=== PATIENT | male | born 1935 | race Caucasian/White ===

== ENCOUNTER → 2016-10-02 | Outpatient (CLI) | payer OTHER, BC ==
[~2016-10-02] MED LIST: AMLO5TAB2 PO; ASPEC81 PO; ATOR10TA88 PO; FURO-85 PO; LISI10TA PO; POTA10TA32 PO; ZNTT/150 PO; ZOLP5TAB6 PO
[2016-10-02 09:32] LABS: BASO % 0.5 %; BASO ABS # 0.03 K/uL (0-0.2); COMPLETE YES; EOS % 1.9 %; HEMATOCRIT 39.1 % (42-52); IG% 0.2 %; LYMPH % 37.3 %; LYMPH ABS # 2.36 K/uL (1.2-3.4); MEAN CORPUSCULAR HEMOGLOBIN 32.8 pg (25-34); MEAN CORPUSCULAR HGB CONC 33.8 g/dl (32-36); MEAN PLATELET VOLUME 9.1 fL (7.4-10.4); MONO % 9.5 %; NEUT % 50.6 %; PLATELET COUNT 218 K/uL (130-400); RED BLOOD COUNT 4.03 M/uL (4.7-6.1); WHITE BLOOD COUNT 6.32 K/uL (4.8-10.8)
[2016-10-02 09:54] LABS: ALT/SGPT 15 U/L (12-78); AST/SGOT 14 U/L (15-37); BLOOD UREA NITROGEN 18 mg/dl (7-18); BUN/CREATININE RATIO 20.3 (10-20); CALCIUM 8.8 mg/dl (8.5-10.1); CARBON DIOXIDE 26 mmol/L (21-32); CHLORIDE 108 mmol/L (98-107); CREATININE 0.88 mg/dl (0.60-1.40); GLUCOSE 88 mg/dl (70-99); POTASSIUM 4.1 mmol/L (3.5-5.1); SODIUM 143 mmol/L (136-145)
[2016-10-02 09:56] LABS: ALB/GLOB RATIO 1.3 (0.9-2); ALKALINE PHOSPHATASE 60 U/L (45-117); CHOLESTEROL 151 mg/dl (0-200); CHOLESTEROL/HDL RATIO 2.4; HDL CHOLESTEROL 62 mg/dl; LDL CHOLESTEROL CALCULATED 67 mg/dl; TRIGLYCERIDES 111 mg/dl (0-150); VERY LOW DENSITY LIPOPROT CALC 22 mg/dl
== END | disposition home or self-care (01) ==
LOC: C.LAB1850 07:55
PROVIDERS: ATTEND Nurse Practitioner Family
DX: E78.00 Pure hypercholesterolemia, unspecified (principal); I10 Essential (primary) hypertension; K21.9 Gastro-esophageal reflux disease without esophagitis

== ENCOUNTER → 2017-03-19 | Outpatient (CLI) | payer OTHER, BC ==
[2017-03-19 09:35] LABS: BASO % 0.5 %; BASO ABS # 0.04 K/uL (0-0.2); COMPLETE YES; EOS % 1.9 %; HEMATOCRIT 42.7 % (42-52); IG% 0.1 %; LYMPH % 36.4 %; LYMPH ABS # 2.66 K/uL (1.2-3.4); MEAN CELL VOLUME 98.4 fL (80-100); MEAN CORPUSCULAR HEMOGLOBIN 31.6 pg (25-34); MEAN CORPUSCULAR HGB CONC 32.1 g/dl (32-36); MEAN PLATELET VOLUME 9.2 fL (7.4-10.4); MONO % 8.4 %; NEUT % 52.7 %; PLATELET COUNT 235 K/uL (130-400); RED BLOOD COUNT 4.34 M/uL (4.7-6.1)
[2017-03-19 09:47] LABS: PROTHROMBIN TIME (PATIENT) 10.2 SECONDS (9.0-12.0)
[2017-03-19 09:52] LABS: ALT/SGPT 22 U/L (12-78); AST/SGOT 19 U/L (15-37); BLOOD UREA NITROGEN 27 mg/dl (7-18); BUN/CREATININE RATIO 22.6 (10-20); CALCIUM 9.1 mg/dl (8.5-10.1); CARBON DIOXIDE 28 mmol/L (21-32); CHLORIDE 108 mmol/L (98-107); GLUCOSE 99 mg/dl (70-99); POTASSIUM 4.1 mmol/L (3.5-5.1); SODIUM 140 mmol/L (136-145)
[2017-03-19 09:54] LABS: ALB/GLOB RATIO 1.3 (0.9-2); ALKALINE PHOSPHATASE 74 U/L (45-117); CHOLESTEROL 149 mg/dl (0-200); CHOLESTEROL/HDL RATIO 2.6; HDL CHOLESTEROL 57 mg/dl; LDL CHOLESTEROL CALCULATED 74 mg/dl; TRIGLYCERIDES 88 mg/dl (0-150); VERY LOW DENSITY LIPOPROT CALC 18 mg/dl
[2017-03-19 09:59] LABS: ESTIMATED AVERAGE GLUCOSE 120 mg/dl; HA1C FLAG Normal (Normal)
== END | disposition home or self-care (01) ==
LOC: C.LAB1850 07:58
PROVIDERS: ATTEND Nurse Practitioner Family
DX: R73.01 Impaired fasting glucose (principal); R23.8 Other skin changes

== ENCOUNTER → 2017-04-23 | Day surgery (SDC) | payer OTHER, BC ==
[2017-04-12 13:36] VITALS: Ht 172.7 cm; Wt 75.0 kg
[~2017-04-23] VITALS: Ht 172.7 cm; Wt 75.0 kg
[~2017-04-23] MED LIST changes: -ASPEC81 PO; +LIDOCAINE HCL 2% 2 ML VIAL (20MG/ML) ONE; +PROPOFOL IV EMULSION 10 MG/ML 20 ML VIAL IV ONE; +SODIUM CHLORIDE 0.9% 500ML 500 ML IV ONE
--- NOTE | 2017-04-23 12:24 | Endo History and Physical ---
History & Physical Date of Service: Apr 23, 2017. Chief Complaint: Gunn's esophagus Referring Physician: REDDY Spring III History of Present Illness 82 yo CM who presents for EGD secondary to Gunn's esophagus. Past Medical History Male Genitourinary Prob., Anxiety, Reflux, High Cholesterol, Hypertension Past Surgical History Hx Cardiac Surgery: No Hx Internal Defibrillator: No Hx Pacemaker: No Hx Abdominal Surgery: No Hx of Implantable Prosthesis: No Hx Post-Op Nausea and Vomiting: No Hx Cancer Surgery: No Hx Thoracic Surgery: No Hx Orthopedic: Yes (LT FOOT SURGERY) Hx Urinary Tract Surgery: Yes (TURP, CYSTOSCOPY) Family History None Social History Smoking Status: Former Smoker Hx Substance Use: No Hx Alcohol Use: Yes (OCCASIONAL) Allergies Coded Allergies: No Known Allergies (Verified , ., 04/23/17) Current Medications Reported Home Medications Medications Dose Route/Sig Max Daily Dose Days Date Category Zantac (Ranitidine HCl) 150 Mg Tab 150 Mg PO QPM PRN 10/20/14 Reported Potassium Chloride Er (Potassium Chloride Microencaps) 10 Meq Tab 10 Meq PO QAM 02/20/14 Reported Prinivil (Lisinopril) 10 Mg Tab 10 Mg PO BID 02/20/14 Reported Lasix (Furosemide) 20 Mg Tab 20 Mg PO QAM 02/20/14 Reported Lipitor (Atorvastatin Calcium) 10 Mg Tab 10 Mg PO QAM 02/20/14 Reported Norvasc (Amlodipine Besylate) 5 Mg Tab 5 Mg PO QAM 02/20/14 Reported Vital Signs Weight (Kilograms): 75 Height (Feet): 5 Height (Inches): 8 Date Time Temp Pulse Resp B/P (MAP) Pulse Ox O2 Delivery O2 Flow Rate FiO2 04/23/17 11:44 36.6 64 16 136/81 (99) 95 Room Air Physical Exam General Appearance: WD/WN, no apparent distress Respiratory/Chest: Auscultation: breath sounds normal Cardiovascular: Heart Auscultation: RRR Abdomen: Bowel Sounds: normal Inspection & Palpation: soft, non-distended, no tenderness, guarding & rebound Assessment and Plan Assessment: 82 yo CM who presents for EGD secondary to Gunn's esophagus. Plan: Proceed with EGD
--- NOTE | 2017-04-23 12:55 | Discharge Instructions ---
Endoscopy Patient Instructions Date / Procedure(s) Performed Apr 23, 2017. EGD Allergy Information Coded Allergies: No Known Allergies (Verified , ., 04/23/17) Discharge Date / Findings Apr 23, 2017. Gunn's Esophagus s/p biopsies Hiatal hernia Medication Instructions Stopped Medication(s): Patient was told to not take his lasix today. OK to resume all medications today as prescribed Reported Home Medications Medications Dose Route/Sig Max Daily Dose Days Date Category Zantac (Ranitidine HCl) 150 Mg Tab 150 Mg PO QPM PRN 10/20/14 Reported Potassium Chloride Er (Potassium Chloride Microencaps) 10 Meq Tab 10 Meq PO QAM 02/20/14 Reported Prinivil (Lisinopril) 10 Mg Tab 10 Mg PO BID 02/20/14 Reported Lasix (Furosemide) 20 Mg Tab 20 Mg PO QAM 02/20/14 Reported Lipitor (Atorvastatin Calcium) 10 Mg Tab 10 Mg PO QAM 02/20/14 Reported Norvasc (Amlodipine Besylate) 5 Mg Tab 5 Mg PO QAM 02/20/14 Reported Provider Instructions Activity Restrictions - No exercising or heavy lifting for 24 hours. - Do not drink alcohol the day of the procedure. - Do not drive a car or operate machinery until the day after the procedure. - Do not make any important decisions or sign important papers in 24 hours after the procedure. Following Day: - Return to full activity which may include returning to work/school. Diet Start your diet with liquids and light foods (jello, soup, juice, toast). Then eat your usual diet if not nauseated. Treatment For Common After Affects For mild abdominal pain, bloating, or excessive gas: - Rest - Eat lightly - Lie on right side Follow-Up Information Follow-up with REDDY Spring III as scheduled Anesthesia Information What You Should Know You have had a procedure that required some medicine to reduce anxiety and discomfort. This treatment is called moderate sedation. After receiving the treatment, you may be sleepy, but you will be able to breathe on your own. The effects of the treatment may last for several hours. Follow these instructions along with Activity/Diet recommendations noted above: * Do NOT do anything where dizziness or clumsiness would be dangerous. * Rest quietly at home today, then you can be up and about tomorrow. * Have a responsible person stay with you the rest of today. * You may have had an I.V. today. If so, you may take the dressing off later today. Recommendations Call your doctor if: * Trouble breathing * Continuous vomiting for more than 24 hours * Temperature above 101 degrees * Severe abdominal pain or bloating * Pain not relieved by pain medicine ordered * There is increased drainage or redness from any incision * A large amount of rectal bleeding greater than 2-3 tablespoons. (If you had a polyp/s removed or have hemorrhoids, a small amount of blood - from the rectum is to be expected.) * You have any unanswered questions or concerns. IN THE EVENT OF A SERIOUS EMERGENCY, GO TO THE NEAREST EMERGENCY ROOM Your discharge instructions were prepared by provider Hector White. Patient Instructions Signature Page Steve Winn Patient (or Guardian) Signature/Date: I have read and understand the instructions given to me by my caregivers. Caregiver/RN/Doctor Signature/Date: The above-named patient and/or guardian has received patient instructions on this date. + Original Patient Signature Page (only) stays with chart. Please make copy for patient.
--- NOTE | 2017-04-23 13:02 | GI REPORT ---
Procedure Date: 04/23/2017 12:22 PM Procedure: Upper GI endoscopy Indications: Follow-up of Gunn's esophagus Medicines: Monitored Anesthesia Care Complications: No immediate complications. Estimated Blood Loss: Estimated blood loss: none. Procedure: Pre-Anesthesia Assessment: - Prior to the procedure, a History and Physical was performed, and patient medications and allergies were reviewed. The patient's tolerance of previous anesthesia was also reviewed. The risks and benefits of the procedure and the sedation options and risks were discussed with the patient. All questions were answered, and informed consent was obtained. Prior Anticoagulants: The patient has taken no previous anticoagulant or antiplatelet agents. ASA Grade Assessment: II - A patient with mild systemic disease. After reviewing the risks and benefits, the patient was deemed in satisfactory condition to undergo the procedure. After obtaining informed consent, the endoscope was passed under direct vision. Throughout the procedure, the patient's blood pressure, pulse, and oxygen saturations were monitored continuously. The scope was introduced through the mouth, and advanced to the second part of duodenum. The upper GI endoscopy was accomplished without difficulty. The patient tolerated the procedure well. Findings: There were esophageal mucosal changes consistent with short-segment Gunn's esophagus present at the gastroesophageal junction. The maximum longitudinal extent of these mucosal changes was 2 cm in length. Mucosa was biopsied with a cold forceps for histology. One specimen bottle was sent to pathology. A small hiatus hernia was present. The examined duodenum was normal. Impression: - Esophageal mucosal changes consistent with short-segment Gunn's esophagus. Biopsied. - Small hiatus hernia. - Normal examined duodenum. Recommendation: - Resume previous diet. - Continue present medications. - Await pathology results. - Return to primary care physician as previously scheduled. Hector White, DO 04/23/2017 1:01:16 PM This report has been signed electronically. Note Initiated On: 04/23/2017 12:22 PM I attest to the content of the Intraoperative Record and orders documented therein, exceptions below
--- NOTE | 2017-04-23 13:21 | Anesthesiology Progress Note ---
Anesthesia Post Op Note Date & Time Apr 23, 2017 at 13:21 Vital Signs Pain Intensity: 0 Vital Signs Past 12 Hours Date Time Temp Pulse Resp B/P (MAP) Pulse Ox O2 Delivery O2 Flow Rate FiO2 04/23/17 13:11 54 16 112/65 (81) 95 Room Air 04/23/17 12:56 54 16 90/54 (66) 94 Room Air 04/23/17 11:44 36.6 64 16 136/81 (99) 95 Room Air Notes Mental Status: alert / awake / arousable, participated in evaluation Pt Amnestic to Procedure: Yes Nausea / Vomiting: adequately controlled Pain: adequately controlled Airway Patency, RR, SpO2: stable & adequate BP & HR: stable & adequate Hydration State: stable & adequate Anesthetic Complications: no major complications apparent
[2017-04-23 13:28] VITALS: BP 110/53; PULSE 51; O2SAT 98
== END | disposition home or self-care (01) ==
LOC: C.GI 11:17
PROVIDERS: ATTEND Internal Medicine
DX: K22.70 Barrett's esophagus without dysplasia (principal); K44.9 Diaphragmatic hernia without obstruction or gangrene; I10 Essential (primary) hypertension; E78.00 Pure hypercholesterolemia, unspecified

== ENCOUNTER 2017-04-29 16:05 | Emergency (ER) | payer OTHER, BC ==
[~2017-04-29] VITALS: Ht 172.7 cm; Wt 77.0 kg
[~2017-04-29 16:05] MED LIST changes: -LIDOCAINE HCL 2% 2 ML VIAL (20MG/ML) ONE; -PROPOFOL IV EMULSION 10 MG/ML 20 ML VIAL IV ONE; -SODIUM CHLORIDE 0.9% 500ML 500 ML IV ONE; -ZOLP5TAB6 PO
[2017-04-29 16:07] VITALS: TEMP 36.6; Ht 172.7 cm; Wt 77.0 kg
[2017-04-29] MEDS ORDERED: ZOLP5TAB6 PO (16:26)
--- NOTE | 2017-04-29 17:00 | EMERGENCY ROOM VISIT NOTE ---
ED Visit Note First contact with patient: 16:30 The patient was seen and examined with Keagan Feliz PA-C. I agree with the history, physical and findings. Please see the note for disposition and details.
--- NOTE | 2017-04-29 17:02 | EMERGENCY ROOM VISIT NOTE ---
ED Visit Note First contact with patient: 16:30 Chief Complaint: "Nicked nose while shaving, won't stop bleeding". History of Present Illness: This patient is a 82-year-old male who presents to the Emergency Department via private vehicle accompanied by for evaluation of their left nose laceration. Patient sustained the laceration while shaving earlier today, accidentally caught the portion of his left nostril with the razor. They report a minimal amount of bleeding initially but it has persisted throughout the day. He denies any anticoagulant use. He has tried dressings to the area that it continues to ooze. Medications: As noted below Allergies: None PMH: No pertinent SHx: Patient lives locally. ROS: All pertinent positive and negative review of systems are appropriately documented in the History of Present Illness. Physical Exam: VITAL SIGNS - Vital signs and nursing notes were reviewed. Stable. Several hypertensive. GENERAL -82-year-old male appearing his stated age who is in no acute distress. Communicates well with provider and answers questions appropriately. SKIN - There is a 0.5 cm long laceration noted on the left lateral nostril inferior region that is a slight abrasion/borderlining laceration. The edges gape apart with traction. No foreign bodies appreciated. Upon further examination there are no deep structures including vessel, tendon, or bony structures appreciated. There is no minimal active bleeding noted. ED Course: Patient was seen and evaluated by myself. Risks and benefits of performing primary wound closure versus no repair were discussed with the patient who verbalizes understanding. Verbal consent was obtained prior to performing the procedure. This appears to be just a small layer of skin that has been avulsed with a razor. I suspect that he cut the small little blood vessel in this region, and he continues to use as it is difficult to put a bandage in this area. This appears that it will do well with a little bit of Dermabond. This was cleansed thoroughly, and then Dermabond was applied. Patient tolerated the procedure well. No complications were met. Tetanus is believed to be up-to- date. He was reevaluated and the bleeding had stopped successfully. Patient educated on worrisome symptoms for return visit to the Emergency Department. Patient discharged to home in good condition. In evaluation treatment this patient following differential diagnoses were entertained: Laceration, abrasion, among others. He is to follow up regarding elevated blood pressure. I personally reviewed the patient's medication list. Problem List Medical Problems: (1) Gunn's esophagus Status: Chronic (2) Benign prostatic hypertrophy Status: Chronic Surgical Problems: (1) S/P TURP Status: Resolved Current/Historical Medications Scheduled Amlodipine Besylate (Norvasc), 5 MG PO QAM Atorvastatin (Lipitor), 10 MG PO QAM Furosemide (Lasix), 20 MG PO QAM Lisinopril (Prinivil), 10 MG PO DAILY Potassium Chloride Microencaps (Potassium Chloride Er), 10 MEQ PO QAM Zolpidem Tartrate (Zolpidem Tartrate), 5 MG PO HS Allergies Coded Allergies: No Known Allergies (Verified , ., 04/23/17) Vital Signs Date Time Temp Pulse Resp B/P (MAP) Pulse Ox O2 Delivery O2 Flow Rate FiO2 04/29/17 17:08 74 18 138/82 98 04/29/17 16:07 36.6 74 18 164/83 97 Room Air Departure Information Impression Primary Impression: Laceration Dispostion Home / Self-Care Condition GOOD Referrals Leonides Cassidy III, CRNP (PCP) Patient Instructions My [facility] Additional Instructions You were seen in the emergency Department for a cut on your nose that continued to bleed. This was closed with medical grade glue. Please resume normal activities. Please return with any new/concerning symptoms. The blood pressure was found to be slightly elevated here today. Please follow- up with your family doctor regarding this.
[2017-04-29 17:08] VITALS: BP 138/82; PULSE 74; O2SAT 98
== END 2017-04-29 17:09 | disposition home or self-care (01) ==
LOC: C.EDB 16:06 → C.EDD 17:09
DX: S01.21XA Laceration without foreign body of nose, initial encounter (principal); W26.8XXA Contact with other sharp object(s), not elsewhere classified, initial encounter; Y93.89 Activity, other specified; Y99.8 Other external cause status; Z90.79 Acquired absence of other genital organ(s)

== ENCOUNTER → 2017-06-28 | Outpatient (CLI) | payer OTHER, BC ==
[~2017-06-28] MED LIST changes: +ATOR10TA82 PO; -ATOR10TA88 PO; -ZNTT/150 PO; +ZOLP5TAB6 PO
[2017-06-28 09:47] LABS: BASO % 0.4 %; BASO ABS # 0.03 K/uL (0-0.2); COMPLETE YES; EOS % 3.1 %; HEMATOCRIT 38.9 % (42-52); IG% 0.1 %; LYMPH % 37.3 %; LYMPH ABS # 2.63 K/uL (1.2-3.4); MEAN CELL VOLUME 99.2 fL (80-100); MEAN CORPUSCULAR HEMOGLOBIN 32.9 pg (25-34); MEAN CORPUSCULAR HGB CONC 33.2 g/dl (32-36); MEAN PLATELET VOLUME 9.1 fL (7.4-10.4); MONO % 7.4 %; NEUT % 51.7 %; PLATELET COUNT 221 K/uL (130-400); RED BLOOD COUNT 3.92 M/uL (4.7-6.1); WHITE BLOOD COUNT 7.06 K/uL (4.8-10.8)
[2017-06-28 10:05] LABS: ESTIMATED AVERAGE GLUCOSE 117 mg/dl; HA1C FLAG Normal (Normal)
[2017-06-28 10:18] LABS: ALT/SGPT 20 U/L (12-78); AST/SGOT 21 U/L (15-37); BLOOD UREA NITROGEN 24 mg/dl (7-18); CALCIUM 8.7 mg/dl (8.5-10.1); CARBON DIOXIDE 26 mmol/L (21-32); CHLORIDE 109 mmol/L (98-107); CREATININE 0.96 mg/dl (0.60-1.40); GLUCOSE 91 mg/dl (70-99); SODIUM 140 mmol/L (136-145)
[2017-06-28 10:21] LABS: ALB/GLOB RATIO 1.3 (0.9-2); ALKALINE PHOSPHATASE 62 U/L (45-117); CHOLESTEROL 157 mg/dl (0-200); CHOLESTEROL/HDL RATIO 2.5; HDL CHOLESTEROL 62 mg/dl; LDL CHOLESTEROL CALCULATED 68 mg/dl; TRIGLYCERIDES 135 mg/dl (0-150); VERY LOW DENSITY LIPOPROT CALC 27 mg/dl
== END | disposition home or self-care (01) ==
LOC: C.LAB1850 08:24
PROVIDERS: ATTEND Nurse Practitioner Family
DX: R73.01 Impaired fasting glucose (principal)

== ENCOUNTER → 2017-07-24 | Outpatient (CLI) | payer OTHER, BC | END | disposition home or self-care (01) | LOC: C.LAB1850 11:10 | PROVIDERS: ATTEND Nurse Practitioner Family | DX: D64.9 Anemia, unspecified (principal) ==

== ENCOUNTER 2017-08-03 09:32 | Emergency (ER) | payer OTHER, BC ==
[~2017-08-03] VITALS: Ht 172.7 cm; Wt 77.4 kg
[2017-08-03 09:34] VITALS: TEMP 36.7; Ht 172.7 cm; Wt 77.4 kg
[2017-08-03] MEDS ORDERED: LIDODERM (LIDOCAINE) PATCH 5% TD STA (09:56)
[2017-08-03] MEDS ORDERED: GABAPENTIN 100 MG CAP PO STA (09:56)
[2017-08-03] MEDS ORDERED: ACETAMINOPHEN 325 MG TAB PO STA (09:56)
--- NOTE | 2017-08-03 09:56 | EMERGENCY ROOM VISIT NOTE ---
History Report prepared by Fozia: Saúl Lanier Under the Supervision of: Dr. Fely Toro D.O. First contact with patient: 09:43 Chief Complaint: LEG PAIN,LEG INJURY Stated Complaint: SCIATIC NERVE PAIN, LEG PAIN History of Present Illness The patient is an 82 year old male who presents to the Emergency Room with complaints of persistent right buttock pain for six months [employer]. The patient initially noticed the right buttock pain about six months ago, though it started to worsen over the last week. He notes the pain originates in his right buttock and radiates to his right hamstrings, though the pain does not go below the knee. He currently rates the pain a 9 /10 in severity. He notes the pain worsens when he walks and applies pressure to his right leg. He denies any past similar symptoms with his legs. He denies any numbness, tingling, urinary symptoms, fevers, nausea, vomiting, shortness of breath, chills, leg swelling, or change in activity. He has tried Advil with no relief. His last dose of two tablets of Advil was 6 hours ago [employer]. He denies a history of chronic back pain, herniated disk, or spinal hardware. 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 He normally ambulates without a walking device. Source of History: patient Onset: six months [employer] Position: buttock (right) Symptom Intensity: 9/10 Quality: other (persistent) Modifying Factors (Worsening): other (walking and applying pressure ) Associated Symptoms: + LOC, + headache, + diaphoresis, + sorethroat, + cough , + neck pain, + chest pain, + abdominal pain, + back pain, + melena, + hematochezia, + diarrhea, + fatigue, + weakness, + rash, + lymphadenopathy, No fevers, No chills, No SOB, No nausea, No vomiting, No urinary symptoms, No numbness Note: He denies any tingling, leg swelling, or change in activity. He notes the right buttock pain radiates to his right hamstrings. Review of Systems See HPI for pertinent positives & negatives. A total of 10 systems reviewed and were otherwise negative. Past Medical & Surgical Medical Problems: (1) Gunn's esophagus (2) Benign prostatic hypertrophy (3) Dizziness (4) Hypertension Nos Surgical Problems: (1) S/P TURP Family History Diabetes mellitus Heart disease Social History Smoking Status: Never Smoker Alcohol Use: occasionally Drug Use: none Marital Status: Housing Status: lives with family Occupation Status: retired Current/Historical Medications Scheduled Amlodipine Besylate (Norvasc), 5 MG PO QAM Atorvastatin (Lipitor), 10 MG PO QAM Furosemide (Lasix), 20 MG PO QAM Lisinopril (Prinivil), 10 MG PO DAILY Potassium Chloride Microencaps (Potassium Chloride Er), 10 MEQ PO QAM Zolpidem Tartrate (Zolpidem Tartrate), 5 MG PO HS Scheduled PRN Diazepam (Valium), 2.5 MG PO Q8 PRN for Pain Tramadol (Ultram), 1-2 TABS PO Q8 PRN for Pain Allergies Coded Allergies: No Known Allergies (Verified , ., 08/03/17) Physical Exam Vital Signs Date Time Temp Pulse Resp B/P (MAP) Pulse Ox O2 Delivery O2 Flow Rate FiO2 08/03/17 13:27 59 16 105/58 94 Room Air 08/03/17 12:11 59 14 118/70 95 Room Air 08/03/17 10:14 63 18 130/74 96 Room Air 08/03/17 09:34 36.7 69 18 137/80 97 Room Air Physical Exam GENERAL: alert, well appearing, well nourished, no distress, non-toxic EYE EXAM: normal conjunctiva, PERRL and EOM's grossly intact OROPHARYNX: no exudate, no erythema, lips, buccal mucosa, and tongue normal and mucous membranes are moist NECK: supple, no nuchal rigidity, no adenopathy, non-tender LUNGS: Clear to auscultation. Normal chest wall mechanics HEART: no murmurs, S1 normal and S2 normal ABDOMEN: abdomen soft, non-tender, normo-active bowel sounds, no masses, no rebound or guarding. BACK: Back is symmetrical on inspection and there is no deformity, no midline tenderness, no CVA tenderness. SKIN: no rashes and no bruising UPPER EXTREMITIES: upper extremities are grossly normal. LOWER EXTREMITIES: No pitting edema. Tenderness in mid right buttock and tenderness of right low back. 2/4 patellar reflexes bilaterally. FROM bilaterally. NEURO EXAM: Normal sensorium, cranial nerves II-XII grossly intact, normal speech, no gross weakness of arms, no gross weakness of legs. Medical Decision & Procedures ER Provider Diagnostic Interpretation: Radiology results have been interpreted by the radiologist and reviewed by me. PELVIS NO IV/ORAL CONT (CT) HISTORY: 82 years-old Male right hip pain acute right hip pain COMPARISON: Lumbar spine CT of same day, CT abdomen and pelvis 03/13/2014 TECHNIQUE: Multiple axial CT images of the pelvis were obtained without contrast. A dose lowering technique was used consistent with the principals of ALARA. FINDINGS: The bones appear mildly demineralized. Severe facet arthrosis of the lower lumbar spine with severe intervertebral disc space narrowing and endplate spurring at L5-S1. Sacrum and bony pelvis appears intact. Severe degenerative changes of the pubic symphysis. 11 mm sclerotic lesion of the left femoral neck is noted, likely benign. 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 Bilateral proximal femora appear intact. Urinary bladder distention measures up to 16 point centimeters in length. Prostate is mildly enlarged. Normal appendix. Extensive colonic diverticulosis without diverticulitis. No adenopathy identified. Probable cyst of the inferior pole right kidney, partially imaged. No acute soft tissue abnormality identified. IMPRESSION: 1. Degenerative changes of the lower lumbar spine and pelvis without acute fracture or subluxation. 2. Marked urinary bladder distention with prostamegaly. Correlate clinically to exclude urinary bladder outlet obstruction. 3. Extensive colonic diverticulosis without diverticulitis. The above report was generated using voice recognition software. It may contain grammatical, syntax or spelling errors. Electronically signed by: Magno Meza M.D. 08/03/2017 11:00 AM Dictated Date/Time: 08/03/2017 10:[address] WITHOUT CONTRAST CLINICAL HISTORY: Low back and right hip pain. Sciatic nerve pain. COMPARISON STUDY: Lumbar spine MRI October 17, 2013. FINDINGS: For purposes of numbering on this exam, the L5-S1 disc space is assigned to axial image 324 of 369. Alignment of the lumbar spine is anatomic. Vertebral body heights are maintained. There is no fracture or suspicious lesion. Multilevel degenerative disc disease and facet arthrosis is present. A few water attenuation bilateral renal lesions were shown to reflect cysts on prior contrast enhanced CT of March 24, 2014. Central canal and neural foramen are suboptimally assessed by CT. L1-L2: The central canal and neural foramen are patent. L2-L3: There is disc space narrowing with disc bulge and vacuum disc phenomenon. There is mild narrowing of the central canal and the neural foramen. L3-L4: There is disc bulge with ligamentous hypertrophy and facet arthrosis. There is moderate narrowing of the central canal, lateral recesses and mild narrowing of both neural foramen. L4-L5: There is disc space narrowing with vacuum disc and ulna on a disc bulge with ligamentous hypertrophy and facet arthrosis. There is mild to moderate narrowing of the central canal, lateral recesses and neural foramen. There is a possible far right lateral disc protrusion at this level that may contact the exiting right L4 nerve root. L5-S1: Disc space narrowing with vacuum disc and 11. There is mild disc bulge. There is minimal narrowing of the central canal. There is moderate bilateral neural foraminal stenosis. IMPRESSION: 1. No acute lumbar spine fracture or subluxation. 2. Moderate multilevel degenerative disc disease and facet arthrosis of the lumbar spine. Suboptimal evaluation of the central canal and neural foramen given CT technique. Suspected moderate central canal stenosis at L3-L4 with moderate multilevel neural foraminal stenosis. Possible far right lateral disc protrusion at L4-L5 that may contact the exiting right L4 nerve root. Electronically signed by: Alvin Rogel M.D. 08/03/2017 11:14 AM Dictated Date/Time: 08/03/2017 11:04 AM Medications Administered Medications (Trade) Dose Ordered Sig/Jose Luis Route Start Time Stop Time Status Last Admin Dose Admin Gabapentin (Neurontin Cap) 100 mg NOW STAT PO 08/03/17 09:56 08/03/17 09:58 DC 08/03/17 10:43 100 MG Acetaminophen (Tylenol Tab) 650 mg NOW STAT PO 08/03/17 09:56 08/03/17 09:58 DC 08/03/17 10:16 650 MG Lidocaine (Lidoderm Patch 5%) 1 patch NOW STAT TD 08/03/17 09:56 08/03/17 09:58 DC 08/03/17 10:43 1 PATCH Diazepam (Valium Tab) 2.5 mg NOW STAT PO 08/03/17 11:39 08/03/17 11:40 DC 08/03/17 11:48 2.5 MG Tramadol HCl (Ultram Tab) 50 mg NOW STAT PO 08/03/17 11:39 08/03/17 11:40 DC 08/03/17 11:48 50 MG Laboratory results per my review. ED Course 0945: The patient was evaluated in room A9. A complete history and physical exam was performed. 0956: Ordered Lidocaine 1 patch TD, Tylenol 650 mg PO, and Neurontin 100 mg PO 1133: I reassessed the patient at this time. He is still having pain. I updated him on his results. 1139: Ordered Tramadol HCl 50 mg PO and Diazepam 2.5 mg PO 1233: I reassessed the patient at this time. He is feeling better and resting comfortably. I discussed the results and treatment plan with the patient. I answered all pertaining questions that he had. He expressed understanding and verbalized agreement. The patient will be discharged home. Medical Decision Prior records/ancillary studies reviewed. Triage Nursing notes reviewed. The patient's history was concerning for back pain. Differential diagnosis: Etiologies such as musculoskeletal, disc herniation, fracture, aortic disease, metastatic disease, cord compression, discitis, infection, renal colic, gastrointestinal, acute exacerbation of chronic back pain, sciatica, cauda equina, as well as others were entertained. Patient likely with chronic worsening general changes of his back leading to bulging disc. Patient with no neuro symptoms to suggest acute nerve impingement , acute cord impingement/cauda equina, epidural abscess or hematoma, doubt urinary etiology of symptoms. Patient admits to pain on the right buttock for at least the last 6 months which is likely evolution of his sciatica based on his description today. Discussed with patient results noted on CT and need for follow-up with teaching specialists. Patient's symptoms improved here with medications. Patient not incontinent, no fevers or chills, doubt underlying malignancy. Discussed with patient symptoms to watch and return for, he verbalized understanding was agreeable with plan. Medication Reconcilliation Current Medication List: was personally reviewed by me Blood Pressure Screening Patient's blood pressure: Elevated blood pressure Blood pressure disposition: Elevated BP felt to be situational Impression Primary Impression: Leg pain, right Additional Impressions: Sciatica Bulging discs Scribe Attestation The scribe's documentation has been prepared under my direction and personally reviewed by me in its entirety. I confirm that the note above accurately reflects all work, treatment, procedures, and medical decision making performed by me. Departure Information Dispostion Home / Self-Care Prescriptions Diazepam (Valium) 5 Mg Tab 2.5 MG PO Q8 Y for Pain, #10 TAB Prov: Fely Toro, DO 08/03/17 Tramadol (Ultram) 50 Mg Tab 1-2 TABS PO Q8 Y for Pain, #15 TAB Prov: Fely Toro., DO 08/03/17 Referrals Leonides Cassidy III, CRNP (PCP) Forms HOME CARE DOCUMENTATION FORM, IMPORTANT VISIT INFORMATION Patient Instructions My [facility] Additional Instructions Please call and follow-up with the teaching specialists listed. Please avoid any heavy lifting or strenuous activity. You may continue using tylenol or ibuprofen as needed for pain. You may apply the pain patch also. If you use the stronger pain medication or muscle relaxer, do not take it and drive as it can make you sleepy or dizzy. If you have any worsening pain, are unable to walk, develop numbness/tingling, have a change in your bowel or bladder function , or you have any other new or concerning symptoms, please return to the emergency room. Problem Qualifiers Additional Impressions: Sciatica Laterality: right Qualified Codes: M54.31 - Sciatica, right side
--- NOTE | 2017-08-03 11:02 | DIAGNOSTIC IMAGING REPORT ---
PELVIS NO IV/ORAL CONT (CT) HISTORY: 82 years-old Male right hip pain acute right hip pain COMPARISON: Lumbar spine CT of same day, CT abdomen and pelvis 03/13/2014 TECHNIQUE: Multiple axial CT images of the pelvis were obtained without contrast. A dose lowering technique was used consistent with the principals of ANISHA. FINDINGS: The bones appear mildly demineralized. Severe facet arthrosis of the lower lumbar spine with severe intervertebral disc space narrowing and endplate spurring at L5-S1. Sacrum and bony pelvis appears intact. Severe degenerative changes of the pubic symphysis. 11 mm sclerotic lesion of the left femoral neck is noted, likely benign. 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 Bilateral proximal femora appear intact. Urinary bladder distention measures up to 16 point centimeters in length. Prostate is mildly enlarged. Normal appendix. Extensive colonic diverticulosis without diverticulitis. No adenopathy identified. Probable cyst of the inferior pole right kidney, partially imaged. No acute soft tissue abnormality identified. IMPRESSION: 1. Degenerative changes of the lower lumbar spine and pelvis without acute fracture or subluxation. 2. Marked urinary bladder distention with prostamegaly. Correlate clinically to exclude urinary bladder outlet obstruction. 3. Extensive colonic diverticulosis without diverticulitis. The above report was generated using voice recognition software. It may contain grammatical, syntax or spelling errors. Electronically signed by: Magno Meza M.D. 08/03/2017 11:00 AM Dictated Date/Time: 08/03/2017 10:55 AM
--- NOTE | 2017-08-03 11:15 | DIAGNOSTIC IMAGING REPORT ---
LUMBAR SPINE CT WITHOUT CONTRAST CLINICAL HISTORY: Low back and right hip pain. Sciatic nerve pain. COMPARISON STUDY: Lumbar spine MRI October 17, 2013. FINDINGS: For purposes of numbering on this exam, the L5-S1 disc space is assigned to axial image 324 of 369. Alignment of the lumbar spine is anatomic. Vertebral body heights are maintained. There is no fracture or suspicious lesion. Multilevel degenerative disc disease and facet arthrosis is present. A few water attenuation bilateral renal lesions were shown to reflect cysts on prior contrast enhanced CT of March 24, 2014. Central canal and neural foramen are suboptimally assessed by CT. L1-L2: The central canal and neural foramen are patent. L2-L3: There is disc space narrowing with disc bulge and vacuum disc phenomenon. There is mild narrowing of the central canal and the neural foramen. L3-L4: There is disc bulge with ligamentous hypertrophy and facet arthrosis. There is moderate narrowing of the central canal, lateral recesses and mild narrowing of both neural foramen. L4-L5: There is disc space narrowing with vacuum disc and ulna on a disc bulge with ligamentous hypertrophy and facet arthrosis. There is mild to moderate narrowing of the central canal, lateral recesses and neural foramen. There is a possible far right lateral disc protrusion at this level that may contact the exiting right L4 nerve root. L5-S1: Disc space narrowing with vacuum disc and 11. There is mild disc bulge. There is minimal narrowing of the central canal. There is moderate bilateral neural foraminal stenosis. IMPRESSION: 1. No acute lumbar spine fracture or subluxation. 2. Moderate multilevel degenerative disc disease and facet arthrosis of the lumbar spine. Suboptimal evaluation of the central canal and neural foramen given CT technique. Suspected moderate central canal stenosis at L3-L4 with moderate multilevel neural foraminal stenosis. Possible far right lateral disc protrusion at L4-L5 that may contact the exiting right L4 nerve root. Electronically signed by: Alvin Rogel M.D. 08/03/2017 11:14 AM Dictated Date/Time: 08/03/2017 11:04 AM
[2017-08-03] MEDS ORDERED: DIAZEPAM 5MG TAB PO STA (11:39)
[2017-08-03] MEDS ORDERED: TRAMADOL HCL 50 MG TAB PO STA (11:39)
[2017-08-03] MEDS ORDERED: DIAZ-165 PO ×2 (12:49→13:16)
[2017-08-03] MEDS ORDERED: TRAM-10 PO (13:14)
[2017-08-03 13:27] VITALS: BP 105/58; PULSE 59; O2SAT 94
== END 2017-08-03 13:46 | disposition home or self-care (01) ==
LOC: C.EDB 09:33 → C.EDA 13:46
DX: M51.16 Intervertebral disc disorders with radiculopathy, lumbar region (principal); K57.90 Diverticulosis of intestine, part unspecified, without perforation or abscess without bleeding; N40.1 Benign prostatic hyperplasia with lower urinary tract symptoms; R33.9 Retention of urine, unspecified

== ENCOUNTER → 2017-08-22 | Outpatient (CLI) | payer OTHER, BC ==
[~2017-08-22] MED LIST changes: +DIAZ-165 PO; +TRAM-10 PO
--- NOTE | 2017-08-22 15:16 | DIAGNOSTIC IMAGING REPORT ---
MRI LUMBAR SPINE W/O CONTRAST CLINICAL HISTORY: Back pain and right leg radiculopathy TECHNIQUE: Sagittal and axial T1, T2 and STIR images were obtained. COMPARISON STUDY: CT scan dated 08/01/2017 OBSERVATIONS: The vertebral bodies and posterior elements appear intact. There is no abnormal bony signal present to suggest a marrow replacement process. L1-2: No disc protrusions or extrusions. No evidence of spinal canal or neural foraminal compromise. L2-3: There is a mild circumferential disc bulge. There is no significant spinal stenosis. There is minimal left-sided some foraminal narrowing. L3-4: There is a circumferential disc bulge. There is mild to moderate spinal stenosis. There is mild facet joint arthropathy. There is minimal right-sided subforaminal narrowing. L4-5: There is a circumferential disc bulge with mild spinal stenosis. There is minimal bilateral subforaminal narrowing. Lateral to the right L4-5 foramen there is a 8 mm T1 and T2 hypointense lesion. Likely diagnostic considerations include an extruded disc fragment, or nerve sheath tumor. L5-S1: There is a circumferential disc bulge. There is no significant spinal stenosis. There is facet joint arthropathy. There is mild bilateral foraminal narrowing. The conus medullaris and cauda equina appear normal. There are bilateral T2 hyperintense renal lesions likely representing cysts. IMPRESSION: 1. Multilevel spondylitic changes. 2. Mild spinal stenosis at the L4-5 level, and mild to moderate spinal stenosis at the L3-4 level. 3. 8 mm T1 and T2 hypodense lesion located lateral to the right L4-5 foramen. Likely diagnostic considerations include either an extruded disc fragment, or nerve sheath tumor. Electronically signed by: Carlin Fine M.D. 08/22/2017 3:14 PM Dictated Date/Time: 08/22/2017 3:06 PM
== END | disposition home or self-care (01) ==
LOC: C.MRIBC 14:03
PROVIDERS: ATTEND Orthopaedic Surgery Orthopaedic Surgery of the Spine
DX: M48.061 Spinal stenosis, lumbar region without neurogenic claudication (principal); M47.26 Other spondylosis with radiculopathy, lumbar region; M89.9 Disorder of bone, unspecified

== ENCOUNTER → 2017-08-31 | Outpatient (CLI) | payer OTHER, BC ==
[2017-08-31 14:41] LABS: BASO % 0.1 %; BASO ABS # 0.01 K/uL (0-0.2); EOS % 0.8 %; HEMOGLOBIN 14.2 g/dL (14.0-18.0); IG# 0.08 K/uL (0.00-0.02); LYMPH % 21.9 %; MEAN CELL VOLUME 99.1 fL (80-100); MEAN CORPUSCULAR HEMOGLOBIN 33.5 pg (25-34); MEAN CORPUSCULAR HGB CONC 33.8 g/dl (32-36); MEAN PLATELET VOLUME 8.7 fL (7.4-10.4); MONO % 9.4 %; MONO ABS # 1.21 K/uL (0.11-0.59); NEUT % 67.2 %; NEUT ABS # 8.61 K/uL (1.4-6.5); PLATELET COUNT 254 K/uL (130-400); RED CELL DISTRIBUTION WIDTH CV 14.8 % (11.5-14.5); RED CELL DISTRIBUTION WIDTH SD 53.5 fL (36.4-46.3); WHITE BLOOD COUNT 12.81 K/uL (4.8-10.8)
[2017-08-31 16:41] LABS: ALBUMIN 3.7 gm/dl (3.4-5.0); ALT/SGPT 27 U/L (12-78); BLOOD UREA NITROGEN 25 mg/dl (7-18); CALCIUM 8.9 mg/dl (8.5-10.1); CARBON DIOXIDE 24 mmol/L (21-32); CREATININE 0.98 mg/dl (0.60-1.40); GLUCOSE 95 mg/dl (70-99); POTASSIUM 3.9 mmol/L (3.5-5.1); SODIUM 138 mmol/L (136-145)
[2017-08-31 16:45] LABS: ALKALINE PHOSPHATASE 51 U/L (45-117); AST/SGOT 19 U/L (15-37); TOTAL PROTEIN 6.8 gm/dl (6.4-8.2)
== END | disposition home or self-care (01) ==
LOC: C.LAB1850 13:46
PROVIDERS: ATTEND Nurse Practitioner Family
DX: D64.9 Anemia, unspecified (principal)

== ENCOUNTER 2020-06-07 17:48 | Observation (INO) ==
--- NOTE | 2020-06-07 18:04 | Emergency Department Note ---
Impression & Plan Weakness, Headache ED Provider Note NAME: ADALI TRIMBLE AGE: 85 SEX: M : 1935 ARRIVES VIA: Ambulance INFORMANT: Patient, ED PROVIDER(S): Jericho Monteiro MD Chief Complaint: Weakness, headache HPI: Patient did have a reported fall approximately week ago over the patient is fell to the ground and struck the back of his head. The patient is not on any blood thinning medications did not have any LOC or seizure-like activity at that time. Patient has had some persistent occipital type head discomfort. He has tried some [id number] medications but without much relief. He describes it is achy and nonradiating. The patient denies numbness tingling or focal weakness but states that when he tried to get up from the couch he felt as though he could not as he was just generally weak. Patient denies any lightheadedness or vertiginous symptoms. The patient denies any vision changes. Patient denies any chest pains, shortness of breath, abdominal pain, nausea, or vomiting. The patient denies infectious symptoms including fevers or chills, cough, loss of taste or smell. Patient states that his appetite has been okay. Patient denies any lower extremity swelling. Patient denies any dysuria, hematuria or constipation type symptoms. The patient has had a recent bowel movement and denies any blood in the stools. ROS: See HPI for pertinent positives and negatives. A total of 10 systems were reviewed and otherwise negative. Past medical history: See below Surgical history: See below Social history: See below Physical Exam: GENERAL: Wearing a mask. NAD, non-toxic. EYE EXAM: Normal conjunctiva. PERRL, no anisocoria and EOM's grossly intact w/o pain. NECK: Supple, no nuchal rigidity, no adenopathy, non-tender. No signs of meningismus. LUNGS: Clear to auscultation. Normal chest wall mechanics. HEART: NSR, no MRG. ABDOMEN: Abdomen soft, non-tender, normo-active bowel sounds, no masses, no rebound or guarding. BACK: No CVA TTP. SKIN: No rashes and no bruising. UPPER EXTREMITIES: Upper extremities are grossly normal. LOWER EXTREMITIES: Grossly normal, no edema. NEURO EXAM: A&O x3, cranial nerves II-XII grossly intact, normal speech, moves all 4 extremities on command w/o issue. [Good finger to nose, no drift, no sensory deficits.] Differential diagnoses: Infection, dehydration, metabolic abnormality, hypo/hyperglycemia, electrolyte disturbance, anemia, hypoxia, cardiac sources, intracerebral event, toxicologic, neurologic, as well as other pathologies. Migraine headache, meningitis, sinusitis, CO exposure, ICH, SAH, infection, tumor, headache, sinus thrombosis, arterial dissection, as well as other pathologies. Course: Patient was seen and evaluated the bedside. Full history physical exam was performed. EKG: Indication: Weakness Sinus bradycardia with first-degree AV block, rate of 58, prolonged KY and wide QRS, right bundle branch block pattern, T wave inversion in lead III. Patient's prolonged KY, QRS, and right bundle branch block appear to be old compared to prior. Patient's T wave inversion is also old compared to prior. Comparison EKG April 11, 2016. Imaging Studies: Radiology results as stated below per my review in the radiologist's interpretation: CT head/brain wo con CLINICAL HISTORY: 85 years-old Male with Headache. Acute headache TECHNIQUE: Multiple axial CT images of the head were obtained without contrast. A dose lowering technique was utilized adhering to the principles of ALARA. CT DOSE: 1002.73 mGy.cm COMPARISON: CT cervical spine of same day, head CT and MRI brain 04/10/2016 FINDINGS: No acute intracranial hemorrhage, midline shift, intracranial mass, hydrocephalus, territorial ischemia or abnormal extra-axial collection. Age- related involutional changes. Patchy white matter hypodensities suggestive of chronic microvascular ischemic disease. Dural and cerebral vascular calcifications. Asymmetric extra-axial space along the right cerebral convexity is unchanged. Senescent calcifications of the basal ganglia. The calvarium is intact. Prior bilateral lens replacement. The paranasal sinuses, mastoid air cells, and middle ear cavities are clear. IMPRESSION: No acute intracranial abnormality. ACT 112: Negative or not required by law. The above report was generated using voice recognition software. It may contain grammatical, syntax or spelling errors. Electronically signed by: Magno Meza M.D. 06/07/2020 7:11 PM Dictated: 06/07/201907 Transcribed: 06/07/201907 XR chest 1V portable HISTORY: 56 years-old Female Dyspnea acute shortness of breath COMPARISON: Chest radiographs 10/06/2010 TECHNIQUE: Portable AP view of the chest FINDINGS: Cardiomediastinal and hilar silhouettes are within normal limits. No pneumothorax, pleural effusion, airspace consolidation or overt pulmonary edema. Bones of the chest appear grossly intact. IMPRESSION: No acute process. ACT 112: Negative or not required by law. The above report was generated using voice recognition software. It may contain grammatical, syntax or spelling errors. Electronically signed by: Magno Meza M.D. 06/07/2020 6:05 PM Dictated: 06/07/201804 Transcribed: 06/07/201804 Cardiac monitoring: An order was placed for continuous cardiac monitoring. The monitor shows a rate of 61 with sinus rhythm. MDM: Patient does present with concern for some generalized weakness as well as headache pain. The patient did have blood work completed along with a CT of the head and cervical spine EKG and troponin. The patient was given some IV fluids in addition to Tylenol. Patient's blood work shows white count of 7 with very mild anemia of 11. Kidney function shows some very mild prerenal azotemia. The patient did receive some IV fluids. CT of the head is negative. CT cervical spine also negative. EKG not show any obvious ischemia. Patient was attempted to be ambulated but felt as though his legs were too weak and he was unable to get up and walk. The patient has been vague about whether or not he is dizzy or has any vertiginous symptoms. Patient was ordered a small dose of dexamethasone in order to avoid the possibility of delirium but may help with a headache. Patient may have an element of postconcussive type symptoms as the patient did have closed head injury it is still having some difficulty with headache and ambulation. Patient was also given some meclizine. I did speak with the on-call hospitalist Dr. Goyo DO. 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, lumbar Gastro-esophageal reflux History of needle biopsy of prostate with negative result Hypercholesterolemia Hypertension Impaired fasting glucose Urethral stricture Surgical History History of liver biopsy History of tonsillectomy History of transurethral resection of prostate Status post osteotomy History of Bunion Correction With Metatarsal Osteotomy Family History Father Myocardial infarction Hypertension Heart disease Cardiac disorder Sister Alzheimer disease Mother Parkinson disease Unknown Diabetes Prostate cancer Hypertension Denies family history of Clotting disorder Breast cancer Social History Smoking Status: Former smoker packs per day: 0.5; Hx Alcohol Use: Yes Alcohol Intake Frequency Comment: only drinks small amounts Hx Substance Use: No Preferred Language: [place] Clinical Data Associate Required: No marital status: Current Living Situation: Spouse Current Living Situation Comment: pt confused unable to state details current occupational status: retired Feels Safe at Home: Yes Seatbelt Use: always Assistive Devices: None Allergies Allergies Allergy/AdvReac Type Severity Reaction Status Date / Time No Known Drug Allergies Allergy Verified 06/07/20 19:29 Home Meds Previous Rx's Medication Instructions Recorded fluocinolone 0.025 % topical cream 1 appln TOP BID #60 gm 03/31/19 furosemide 20 mg tablet 20 mg PO DAILY #30 tab 04/07/20 zolpidem 5 mg tablet 5 mg PO HS PRN #30 tab 04/09/20 amlodipine 5 mg tablet 5 mg PO DAILY #30 tab 05/27/20 atorvastatin 10 mg tablet 10 mg PO DAILY #90 tab 05/27/20 lisinopril 10 mg tablet 10 mg PO BID #180 tab 05/27/20 potassium chloride 10 mEq 10 meq PO DAILY #90 tab 05/27/20 tablet,extended release Results & Data (ED) Vital Signs Vital Signs - 24 hr 06/07/20 18:15 06/07/20 18:34 06/07/20 19:16 Temperature 37.0 C Temperature Source Oral Pulse Rate 66 60 Pulse Rate [Apical] 61 58 L Pulse Rhythm Regular Pulse Rhythm [Apical] Regular Pulse Strength [Apical] Normal Respiratory Rate 18 16 16 Respiratory Effort / Characteristics Non-Labored Spontaneous Non-Labored Spontaneous Respiratory Depth Normal Normal Respiratory Pattern Regular Blood Pressure 130/64 Blood Pressure [Left Arm] 116/62 133/71 Blood Pressure Mean 86 Blood Pressure Mean [Left Arm] 80 91 Blood Pressure Position Lying Blood Pressure Position [Left Arm] Semi-fowlers Sitting Pulse Oximetry 98 97 97 Oxygen Delivery Method Room Air Room Air Room Air Sepsis Recent Fever Within 48 Hours No Sepsis New/Unexplained Change in Mental Status N/A Sepsis Action Taken by Nursing No Action Required Home Medications Current Medication List: was personally reviewed by me Laboratory Data Attestation: I reviewed the patient's lab results. Result diagrams: 06/08/20 06:53 06/08/20 06:53 Lab Results 06/07/20 06/07/20 06/07/20 Range/Units 18:34 18:34 18:34 WBC 7.30 (4.8-10.8) K/uL RBC 3.60 L (4.7-6.1) M/uL Hgb 11.7 L (14.0-18.0) g/dL Hct 35.5 L (42-52) % MCV 98.6 (80-100) fL MCH 32.5 (25-34) pg MCHC 33.0 (32-36) g/dL RDW Std Deviation 50.0 H (36.4-46.3) fL RDW Coeff of Norberto 13.9 (11.5-14.5) % Plt Count 357 (130-400) K/uL MPV 8.8 (7.4-10.4) fL Immature Gran % (Auto) 0.4 % Neut % (Auto) 61.0 % Lymph % (Auto) 27.3 % [place] % (Auto) 8.9 % Eos % (Auto) 2.1 % Baso % (Auto) 0.3 % Neut # (Auto) 4.46 (1.4-6.5) K/uL Lymph # (Auto) 1.99 (1.2-3.4) K/uL [place] # (Auto) 0.65 H (0.11-0.59) K/uL Eos # (Auto) 0.15 (0-0.5) K/uL Baso # (Auto) 0.02 (0-0.2) K/uL Immature Gran # (Auto) 0.03 H (0.00-0.02) K/uL PT 10.8 (9.0-12.0) Seconds INR 1.0 (0.9-1.1) APTT 32.6 H (21.0-31.0) Seconds PTT Ratio 1.2 Sodium 140 (136-145) mmol/L Potassium 3.8 (3.5-5.1) mmol/L Chloride 107 (98-107) mmol/L Carbon Dioxide 28 (21-32) mmol/L Anion Gap 5.0 (3-11) BUN 28 H (7-18) mg/dl Creatinine 1.02 (0.6-1.4) mg/dl Est Cr Clr Drug Dosing 46.1 ml/min Est GFR ( Amer) 77.3 Est GFR (Non-Af Amer) 66.7 BUN/Creatinine Ratio 27.6 H (10-20) Glucose 109 H (70-99) mg/dl Calcium 9.1 (8.5-10.1) mg/dl Magnesium 2.4 (1.8-2.4) mg/dl Troponin I < 0.015 (0-0.045) ng/ml TSH (0.300-4.500) uIu/ml 06/07/20 Range/Units 18:34 WBC (4.8-10.8) K/uL RBC (4.7-6.1) M/uL Hgb (14.0-18.0) g/dL Hct (42-52) % MCV (80-100) fL MCH (25-34) pg MCHC (32-36) g/dL RDW Std Deviation (36.4-46.3) fL RDW Coeff of Norberto (11.5-14.5) % Plt Count (130-400) K/uL MPV (7.4-10.4) fL Immature Gran % (Auto) % Neut % (Auto) % Lymph % (Auto) % [place] % (Auto) % Eos % (Auto) % Baso % (Auto) % Neut # (Auto) (1.4-6.5) K/uL Lymph # (Auto) (1.2-3.4) K/uL [place] # (Auto) (0.11-0.59) K/uL Eos # (Auto) (0-0.5) K/uL Baso # (Auto) (0-0.2) K/uL Immature Gran # (Auto) (0.00-0.02) K/uL PT (9.0-12.0) Seconds INR (0.9-1.1) APTT (21.0-31.0) Seconds PTT Ratio Sodium (136-145) mmol/L Potassium (3.5-5.1) mmol/L Chloride (98-107) mmol/L Carbon Dioxide (21-32) mmol/L Anion Gap (3-11) BUN (7-18) mg/dl Creatinine (0.6-1.4) mg/dl Est Cr Clr Drug Dosing ml/min Est GFR ( Amer) Est GFR (Non-Af Amer) BUN/Creatinine Ratio (10-20) Glucose (70-99) mg/dl Calcium (8.5-10.1) mg/dl Magnesium (1.8-2.4) mg/dl Troponin I (0-0.045) ng/ml TSH 2.380 (0.300-4.500) uIu/ml Administered Medications Acetaminophen (Acetaminophen 500 Mg Tab) 1,000 mg PO Q8 AFTAB Stop: 07/07/20 22:44 Last Admin: 06/08/20 05:43 Dose: 1,000 mg Documented by: [id number] Admin: 06/07/20 22:46 Dose: 1,000 mg Documented by: [id number] Aspirin (Aspirin 81 Mg Ectab) 81 mg PO DAILY AFTAB Stop: 07/08/20 08:59 Last Admin: 06/08/20 09:12 Dose: 81 mg Documented by: [id number] Atorvastatin Calcium (Atorvastatin 10 Mg Tab) 10 mg PO DAILY AFTAB Stop: 07/08/20 08:59 Last Admin: 06/08/20 09:12 Dose: 10 mg Documented by: [id number] Furosemide (Furosemide 20 Mg Tab) 20 mg PO DAILY AFTAB Stop: 07/08/20 08:59 Last Admin: 06/08/20 09:12 Dose: 20 mg Documented by: [id number] Miscellaneous (Fluocinolone~Order Awaiting Action) 1 ea N/A QS AFTAB Stop: 07/08/20 07:59 Last Admin: 06/08/20 07:27 Dose: Not Given Documented by: [id number] Potassium Chloride (Potassium Chloride 10 Meq Tabcr) 10 meq PO DAILY AFTAB Stop: 07/08/20 08:59 Last Admin: 06/08/20 09:12 Dose: 10 meq Documented by: [id number] Discontinued Medications Acetaminophen (Acetaminophen 325 Mg Tab) 650 mg PO NOW STA Stop: 06/07/20 18:15 Last Admin: 06/07/20 18:44 Dose: 650 mg Documented by: [id number] Dexamethasone (Dexamethasone Sod Inj 10 Mg/Ml Vial) 5 mg IV NOW ONE Stop: 06/07/20 19:53 Last Admin: 06/07/20 20:10 Dose: 5 mg Documented by: [id number] Gadobutrol (Gadobutrol 65ml Vial) 7 ml IV ONCE ONE Stop: 06/08/20 10:08 Last Admin: 06/08/20 10:07 Dose: 7 ml Documented by: [id number] Sodium Chloride (Nss) 500 mls @ 999 mls/hr IV .Q31M AFTAB Stop: 06/07/20 18:45 Last Infusion: 06/07/20 19:16 Dose: 0 mls/hr Documented by: [id number] Admin: 06/07/20 18:45 Dose: 999 mls/hr Documented by: [id number] Influenza Virus Vaccine Quadrival (Influenza Virus Quad Vaccine 0.5 Ml Syr) 0.5 ml IM .ONCE ONE Stop: 06/08/20 08:01 Last Admin: 06/08/20 07:30 Dose: Not Given Documented by: [id number] Meclizine HCl (Meclizine Hcl 25 Mg Tab) 25 mg PO NOW STA Stop: 06/07/20 19:53 Last Admin: 06/07/20 20:11 Dose: Not Given Documented by: [id number] Discharge Plan Visit Data Chief Complaint: Dizziness Stated Complaint: DIZZINESS,HEADACHE ED Provider: Jericho Monteiro Discharge Problem: Weakness, Headache Patient Disposition: Admitted As Inpatient Discharge Instructions Interventions: ED Discharge Assessment Last Done: 06/07/20 21:21 Discharge Problem: Headache Qualifiers: Headache type: post-traumatic Headache chronicity pattern: acute headache Intractability: not intractable Qualified Code(s): G44.319 - Acute post- traumatic headache, not intractable
[2020-06-07] MEDS ORDERED: ACETAMINOPHEN 325 MG TAB PO STA (18:14)
[2020-06-07] MEDS ORDERED: SODIUM CHLORIDE 0.9% 500 ML IV SCH (18:15)
[2020-06-07 18:47] LABS: Basophils # (auto) 0.02 K/uL (0-0.2); Basophils % (auto) 0.3 %; Eosinophils # (auto) 0.15 K/uL (0-0.5); Eosinophils % (auto) 2.1 %; Hematocrit (blood only) 35.5 % (42-52); Hemoglobin 11.7 g/dL (14.0-18.0); Immature Granulocytes # (auto) 0.03 K/uL (0.00-0.02); Immature Granulocytes % (auto) 0.4 %; Lymphocytes # (auto) 1.99 K/uL (1.2-3.4); Lymphocytes % (auto) 27.3 %; Mean Corpuscular Hemoglobin 32.5 pg (25-34); Mean Corpuscular Volume 98.6 fL (80-100); Mean Platelet Volume 8.8 fL (7.4-10.4); Monocytes # (auto) 0.65 K/uL (0.11-0.59); Monocytes % (auto) 8.9 %; Neutrophils # (auto) 4.46 K/uL (1.4-6.5); Platelet Count 357 K/uL (130-400); RDW Coefficient of Variation 13.9 % (11.5-14.5)
[2020-06-07 18:59] LABS: Partial Thromboplastin Ratio 1.2; Partial Thromboplastin Time 32.6 Seconds (21.0-31.0); Prothrombin Time 10.8 Seconds (9.0-12.0)
[2020-06-07 19:06] LABS: BUN Creatinine Ratio 27.6 (10-20); Blood Urea Nitrogen 28 mg/dl (7-18); Calcium 9.1 mg/dl (8.5-10.1); Carbon Dioxide 28 mmol/L (21-32); Chloride 107 mmol/L (98-107); Creatinine Clr Calc Pharmacy 46.1 ml/min; Est GFR (African American) 77.3; Est GFR (Non-African American) 66.7; Glucose 109 mg/dl (70-99); Potassium 3.8 mmol/L (3.5-5.1); Sodium 140 mmol/L (136-145)
--- NOTE | 2020-06-07 19:12 | CT Scan Report ---
CT head/brain wo con CLINICAL HISTORY: 85 years-old Male with Headache. Acute headache TECHNIQUE: Multiple axial CT images of the head were obtained without contrast. A dose lowering tech nique was utilized adhering to the principles of ALARA. CT DOSE: 1002.73 mGy.cm COMPARISON: CT cervical spine of same day, head CT and MRI brain 04/10/2016 FINDINGS: No acute intracranial hemorrhage, midline shift, intracranial mass, hydrocephalus, territorial ischem ia or abnormal extra-axial collection. Age-related involutional changes. Patchy white matter hypodens ities suggestive of chronic microvascular ischemic disease. Dural and cerebral vascular calcification s. Asymmetric extra-axial space along the right cerebral convexity is unchanged. Senescent calcificat ions of the basal ganglia. The calvarium is intact. Prior bilateral lens replacement. The paranasal sinuses, mastoid air cells, and middle ear cavities are clear. IMPRESSION: No acute intracranial abnormality. ACT 112: Negative or not required by law. The above report was generated using voice recognition software. It may contain grammatical, syntax o r spelling errors. Electronically signed by: Magno Meza M.D. 06/07/2020 7:11 PM
--- NOTE | 2020-06-07 19:21 | CT Scan Report ---
CT cervical spine wo con CLINICAL HISTORY: 85 years-old Male with Headache. Acute head and neck pain status post trauma COMPARISON: Head CT of same day TECHNIQUE: Multiple axial CT images of the cervical spine were obtained without contrast. A dose low ering technique was utilized adhering to the principles of ALARA. 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 Chondrocalcinosis of the disc spaces. Moderate to severe C6-C7 with severe C7-T1 inter vertebral disc space narrowing. Multilevel spondylitic spurring with posterior disc osteophyte comple x formations. Partial bony fusion of the C2-C3 vertebral bodies. Partially calcified pannus posterior to odontoid process. There is ossification of the occipital C1 articulation. No acute fracture or green bluxation. Multilevel foraminal narrowing. Evaluation of the central canal and neuroforamina is janeth r assessed by MRI. Lung apices are clear. No pneumothorax or prevertebral edema. Heterogeneous thyroid with 10 mm left t hyroid nodule. IMPRESSION: No acute fracture or subluxation. ACT 112: Negative or not required by law. The above report was generated using voice recognition software. It may contain grammatical, syntax o r spelling errors. Electronically signed by: Magno Meza M.D. 06/07/2020 7:19 PM
[2020-06-07 19:27] LABS: Magnesium 2.4 mg/dl (1.8-2.4)
[2020-06-07 19:39] LABS: Troponin I < 0.015 ng/ml (0-0.045)
[2020-06-07] MEDS ORDERED: DEXAMETHASONE SOD INJ 10 MG/ML VIAL IV ONE (19:52)
[2020-06-07] MEDS ORDERED: MECLIZINE HCL 25 MG TAB PO STA (19:52)
--- NOTE | 2020-06-07 20:51 | History & Physical Report ---
Date of Service June 07, 2020 Assessment & Plan (1) Weakness: 85yo C male s/p fall 8 days ago, persistent left sided neck and head pain, dizziness. He had some weakness today with inability to get up and ambulate - difficulty with coordination and strength in his left leg. Patient with history of HTN, HLP, IFG. Some dysmetria noted on exam. 5/5 strength in UE/LE BL. ?Post-trauma/concussive symptoms after fall vs CVA/TIA as cause of patient's weakness and dizziness. -Observation to medical with telemetry -Check MRI brain -Neuro checks Present on Admission?: Yes (2) Hyperlipidemia: Chronic -Continue Atorvastatin, will need increased dosing if CVA Present on Admission?: Yes (3) Anemia: (4) Hypertension: BP stable at present -Hold antihypertensives for possible CVA/TIA -Resume in AM if MRI negative Present on Admission?: Yes (5) Neck pain: Acute left sided neck pain most likely muscular strain. CT head and neck without fracture -Scheduled tylenol -Heating pad -massage as needed F/E/N - Heplock. Electrolytes normal. Heart healthy diet as tolerated with aspiration precautions Ppx - SCDs Code - Full Dispo - Observation to med tele Present on Admission?: Yes History of Present Illness Chief Complaint: dizziness, weakness Primary Care Provider: Leonides Cassidy III, CRNP Steve Winn is a pleasant 85yo male with history of HTN, HLP, GERD presenting with dizziness/weakness and ambulatory dysfunction. Patient had a ground level fall last week and hit the back of his head. He did not lose consciousness, no anticoagulants. He has had significant discomfort since the fall - pain located in the left occiput, band-like to the top of the head and down lateral neck and SCM muscle. He has been taking OTC tylenol with minimal relief. Today patient had some difficulty standing, had some left leg instability and imbalance. No SOB/CP/nausea/vomiting/visual changes/neck stiffness ER Course: Acetaminophen, Dexamethasone, Meclizine Allergies Allergy/AdvReac Type Severity Reaction Status Date / Time No Known Drug Allergies Allergy Verified 06/07/20 19:29 Home Medications Home Medications Medication Instructions Recorded Confirmed Type fluocinolone 0.025 % topical cream 1 appln TOP BID #60 gm 03/31/19 06/07/20 Rx furosemide 20 mg tablet 20 mg PO DAILY #30 tab 04/07/20 06/07/20 Rx zolpidem 5 mg tablet 5 mg PO HS PRN #30 tab 04/09/20 06/07/20 Rx amlodipine 5 mg tablet 5 mg PO DAILY #30 tab 05/27/20 06/07/20 Rx atorvastatin 10 mg tablet 10 mg PO DAILY #90 tab 05/27/20 06/07/20 Rx lisinopril 10 mg tablet 10 mg PO BID #180 tab 05/27/20 06/07/20 Rx potassium chloride 10 mEq 10 meq PO DAILY #90 tab 05/27/20 06/07/20 Rx tablet,extended release Past Med/Surg History Medical History Anemia Anxiety disorder Benign prostatic hyperplasia with urinary obstruction Disc degeneration, lumbar Gastro-esophageal reflux History of needle biopsy of prostate with negative result Hypercholesterolemia Hypertension Impaired fasting glucose Urethral stricture Surgical History History of liver biopsy History of tonsillectomy History of transurethral resection of prostate Status post osteotomy History of Bunion Correction With Metatarsal Osteotomy Family History Father Myocardial infarction Hypertension Heart disease Cardiac disorder Sister Alzheimer disease Mother Parkinson disease Unknown Diabetes Prostate cancer Hypertension Denies family history of Clotting disorder Breast cancer Social History Smoking Status: Former smoker packs per day: 0.5; Hx Alcohol Use: Yes Alcohol Intake Frequency Comment: only drinks small amounts Hx Substance Use: No Preferred Language: [place] Bank Advisor Required: No marital status: Current Living Situation: Spouse Current Living Situation Comment: pt confused unable to state details current occupational status: retired Feels Safe at Home: Yes Seatbelt Use: always Assistive Devices: None Review of Systems Review of Systems: All systems reviewed & are unremarkable except as noted in HPI & below Physical Exam Physical Exam: General: patient resting comfortably, NAD, non-toxic in appearance, AA&O to person/location - some confusion to date Skin: warm, dry, intact, no rashes or lesions HEENT: NC/AT, PERRL, EOMI, anicteric sclera, conjunctiva without injection, external ear normal to inspection and nontender, nares patent, moist mucus membranes, dentition intact, no oropharyngeal lesions, neck supple, trachea midline, no LAD, no thyromegaly, no JVD +tenderness with palpation of left posterior occiput and SCM muscle, mild warmth to muscle Heart: +S1/S2, regular, no m/r/g Lungs: equal air entry bilaterally, no rales/rhonchi/wheezes Abd: +BS, soft, NT/ND, no masses/organomegaly/ascites Ext: warm, 2+ pulses in UE/LE bilaterally, no clubbing/cyanosis or edema Neuro: AA&O to person and location, CN II - XII intact, sensation to light touch intact, equal and intact bilaterally, +dysmetria with finger to nose with LUE Results & Data Results & Data ([facility]) Vital Signs (Past 12 Hours) Vital Signs Temp Pulse Pulse Resp BP BP Pulse Ox 06/07/20 19:16 58 L 16 133/71 97 06/07/20 18:34 60 61 16 116/62 97 06/07/20 18:15 37.0 C 66 18 130/64 98 Laboratory Results Lab Results 06/07/20 06/07/20 06/07/20 Range/Units 18:34 18:34 18:34 WBC 7.30 (4.8-10.8) K/uL RBC 3.60 L (4.7-6.1) M/uL Hgb 11.7 L (14.0-18.0) g/dL Hct 35.5 L (42-52) % MCV 98.6 (80-100) fL MCH 32.5 (25-34) pg MCHC 33.0 (32-36) g/dL RDW Std Deviation 50.0 H (36.4-46.3) fL RDW Coeff of Norberto 13.9 (11.5-14.5) % Plt Count 357 (130-400) K/uL MPV 8.8 (7.4-10.4) fL Immature Gran % (Auto) 0.4 % Neut % (Auto) 61.0 % Lymph % (Auto) 27.3 % Dade % (Auto) 8.9 % Eos % (Auto) 2.1 % Baso % (Auto) 0.3 % Neut # (Auto) 4.46 (1.4-6.5) K/uL Lymph # (Auto) 1.99 (1.2-3.4) K/uL Dade # (Auto) 0.65 H (0.11-0.59) K/uL Eos # (Auto) 0.15 (0-0.5) K/uL Baso # (Auto) 0.02 (0-0.2) K/uL Immature Gran # (Auto) 0.03 H (0.00-0.02) K/uL PT 10.8 (9.0-12.0) Seconds INR 1.0 (0.9-1.1) APTT 32.6 H (21.0-31.0) Seconds PTT Ratio 1.2 Sodium 140 (136-145) mmol/L Potassium 3.8 (3.5-5.1) mmol/L Chloride 107 (98-107) mmol/L Carbon Dioxide 28 (21-32) mmol/L Anion Gap 5.0 (3-11) BUN 28 H (7-18) mg/dl Creatinine 1.02 (0.6-1.4) mg/dl Est Cr Clr Drug Dosing 46.1 ml/min Est GFR ( Amer) 77.3 Est GFR (Non-Af Amer) 66.7 BUN/Creatinine Ratio 27.6 H (10-20) Glucose 109 H (70-99) mg/dl Calcium 9.1 (8.5-10.1) mg/dl Magnesium 2.4 (1.8-2.4) mg/dl Troponin I < 0.015 (0-0.045) ng/ml TSH (0.300-4.500) uIu/ml Urine Color Urine Appearance (Clear) Urine pH (4.5-7.5) Ur Specific [place] (1.000-1.030) Urine Protein (Negative) Urine Glucose (UA) (Negative) Urine Ketones (Negative) Urine Blood (Negative) Urine Nitrite (Negative) Urine Bilirubin (Negative) Urine Urobilinogen (Negative) Ur Leukocyte Esterase (Negative) 06/07/20 06/07/20 Range/Units 18:34 22:00 WBC (4.8-10.8) K/uL RBC (4.7-6.1) M/uL Hgb (14.0-18.0) g/dL Hct (42-52) % MCV (80-100) fL MCH (25-34) pg MCHC (32-36) g/dL RDW Std Deviation (36.4-46.3) fL RDW Coeff of Norberto (11.5-14.5) % Plt Count (130-400) K/uL MPV (7.4-10.4) fL Immature Gran % (Auto) % Neut % (Auto) % Lymph % (Auto) % Dade % (Auto) % Eos % (Auto) % Baso % (Auto) % Neut # (Auto) (1.4-6.5) K/uL Lymph # (Auto) (1.2-3.4) K/uL Dade # (Auto) (0.11-0.59) K/uL Eos # (Auto) (0-0.5) K/uL Baso # (Auto) (0-0.2) K/uL Immature Gran # (Auto) (0.00-0.02) K/uL PT (9.0-12.0) Seconds INR (0.9-1.1) APTT (21.0-31.0) Seconds PTT Ratio Sodium (136-145) mmol/L Potassium (3.5-5.1) mmol/L Chloride (98-107) mmol/L Carbon Dioxide (21-32) mmol/L Anion Gap (3-11) BUN (7-18) mg/dl Creatinine (0.6-1.4) mg/dl Est Cr Clr Drug Dosing ml/min Est GFR ( Amer) Est GFR (Non-Af Amer) BUN/Creatinine Ratio (10-20) Glucose (70-99) mg/dl Calcium (8.5-10.1) mg/dl Magnesium (1.8-2.4) mg/dl Troponin I (0-0.045) ng/ml TSH 2.380 (0.300-4.500) uIu/ml Urine Color Yellow Urine Appearance Clear (Clear) Urine pH 5.0 (4.5-7.5) Ur Specific [place] 1.013 (1.000-1.030) Urine Protein Negative (Negative) Urine Glucose (UA) Negative (Negative) Urine Ketones Negative (Negative) Urine Blood Negative (Negative) Urine Nitrite Negative (Negative) Urine Bilirubin Negative (Negative) Urine Urobilinogen Negative (Negative) Ur Leukocyte Esterase Negative (Negative) Diagnostic Findings CT head/brain wo con CLINICAL HISTORY: 85 years-old Male with Headache. Acute headache TECHNIQUE: Multiple axial CT images of the head were obtained without contrast. A dose lowering technique was utilized adhering to the principles of ALARA. CT DOSE: 1002.73 mGy.cm COMPARISON: CT cervical spine of same day, head CT and MRI brain 04/10/2016 FINDINGS: No acute intracranial hemorrhage, midline shift, intracranial mass, hydrocephalus, territorial ischemia or abnormal extra-axial collection. Age- related involutional changes. Patchy white matter hypodensities suggestive of chronic microvascular ischemic disease. Dural and cerebral vascular calcifications. Asymmetric extra-axial space along the right cerebral convexity is unchanged. Senescent calcifications of the basal ganglia. The calvarium is intact. Prior bilateral lens replacement. The paranasal sinuses, mastoid air cells, and middle ear cavities are clear. IMPRESSION: No acute intracranial abnormality. ACT 112: Negative or not required by law. The above report was generated using voice recognition software. It may contain grammatical, syntax or spelling errors. Electronically signed by: Magno Meza M.D. 06/07/2020 7:11 PM Dictated: 06/07/201907 Transcribed: 06/07/201907 CT cervical spine wo con CLINICAL HISTORY: 85 years-old Male with Headache. Acute head and neck pain status post trauma COMPARISON: Head CT of same day TECHNIQUE: Multiple axial CT images of the cervical spine were obtained without contrast. A dose lowering technique was utilized adhering to the principles of ALARA. FINDINGS: Grade 1 anterolisthesis C4 on C5, C5 on C6, and C6 on C7, likely secondary to long-standing severe facet arthrosis. Chondrocalcinosis of the disc spaces. Moderate to severe C6-C7 with severe C7-T1 intervertebral disc space narrowing. Multilevel spondylitic spurring with posterior disc osteophyte complex formations. Partial bony fusion of the C2-C3 vertebral bodies. Partially calcified pannus posterior to odontoid process. There is ossification of the occipital C1 articulation. No acute fracture or subluxation. Multilevel foraminal narrowing. Evaluation of the central canal and neuroforamina is better assessed by MRI. Lung apices are clear. No pneumothorax or prevertebral edema. Heterogeneous thyroid with 10 mm left thyroid nodule. IMPRESSION: No acute fracture or subluxation. ACT 112: Negative or not required by law. The above report was generated using voice recognition software. It may contain grammatical, syntax or spelling errors. Electronically signed by: Magno Meza M.D. ECG Additional Comments: Sinus bradycardia with first degree AV block, OR=313, LKZ=003, AXx=959, RBBB, no acute ischemic changes Code Status & VTE Plan Code Status Full Code PG Care Time/CCT Total # of Minutes Spent Total Time Spent with Patient: Total time spent is greater than 50% in coordination of care (as documented) at patient's floor/unit and/or counseling patient: Coding Level of Care Code 24984 OBS Care - Level 3 Diagnoses Weakness R53.1 Hyperlipidemia E78.00; E78.0 Hyperlipidemia type: pure hypercholesterolemia Anemia D64.9 Anemia type: unspecified type Hypertension I10 Hypertension type: essential hypertension Neck pain M54.2 (1) Anemia Anemia type: unspecified type Qualified Code(s): D64.9 - Anemia, unspecified (2) Hyperlipidemia Hyperlipidemia type: pure hypercholesterolemia Qualified Code(s): E78.00 - Pure hypercholesterolemia, unspecified; E78.0 - Pure hypercholesterolemia (3) Hypertension Hypertension type: essential hypertension Qualified Code(s): I10 - Essential (primary) hypertension
[2020-06-07] MEDS ORDERED: ONDANSETRON INJ 2 MG/ML 2 ML VIAL IV PRN (21:55)
[2020-06-07 22:34] LABS: Appearance Urine Clear (Clear); Bilirubin Urine Negative (Negative); Blood Urine Negative (Negative); Color Urine Yellow; Glucose Urine UA Negative (Negative); Ketones Urine Negative (Negative); Leukocyte Esterase Urine Negative (Negative); Nitrite Urine Negative (Negative); Protein Urine Negative (Negative); Specific Gravity Urine 1.013 (1.000-1.030); Urobilinogen Urine Negative (Negative)
[2020-06-07] MEDS: ACETAMINOPHEN 500 MG TAB PO SCH (22:46)
[2020-06-08] MEDS: ACETAMINOPHEN 500 MG TAB PO SCH ×3 (05:43→22:19)
[2020-06-08 07:17] LABS: Basophils # (auto) 0.01 K/uL (0-0.2); Basophils % (auto) 0.1 %; Hematocrit (blood only) 37.3 % (42-52); Hemoglobin 12.6 g/dL (14.0-18.0); Immature Granulocytes # (auto) 0.02 K/uL (0.00-0.02); Immature Granulocytes % (auto) 0.2 %; Lymphocytes # (auto) 0.94 K/uL (1.2-3.4); Lymphocytes % (auto) 11.7 %; Mean Corpuscular Hemoglobin 32.5 pg (25-34); Mean Corpuscular Hgb Conc 33.8 g/dL (32-36); Mean Corpuscular Volume 96.1 fL (80-100); Mean Platelet Volume 8.7 fL (7.4-10.4); Monocytes # (auto) 0.12 K/uL (0.11-0.59); Monocytes % (auto) 1.5 %; Neutrophils # (auto) 6.95 K/uL (1.4-6.5); Neutrophils % (auto) 86.5 %; Platelet Count 384 K/uL (130-400); RDW Coefficient of Variation 13.5 % (11.5-14.5); RDW Standard Deviation 47.6 fL (36.4-46.3); Red Blood Count 3.88 M/uL (4.7-6.1); White Blood Count 8.04 K/uL (4.8-10.8)
[2020-06-08 07:54] LABS: Alanine Aminotransferase 36 U/L (12-78); Albumin Level 2.6 gm/dl (3.4-5.0); Aspartate Aminotransferase 28 U/L (15-37); BUN Creatinine Ratio 27.7 (10-20); Bilirubin Direct < 0.1 mg/dl (0-0.2); Blood Urea Nitrogen 25 mg/dl (7-18); Calcium 9.2 mg/dl (8.5-10.1); Carbon Dioxide 24 mmol/L (21-32); Chloride 109 mmol/L (98-107); Creatinine Clr Calc Pharmacy 51.6 ml/min; Est GFR (African American) 88.8; Est GFR (Non-African American) 76.6; Glucose 152 mg/dl (70-99); Sodium 140 mmol/L (136-145)
[2020-06-08 07:57] LABS: Alkaline Phosphatase 80 U/L (45-117); Bilirubin,Total 0.4 mg/dl (0.2-1); Total Protein 6.9 gm/dl (6.4-8.2)
[2020-06-08] MEDS ORDERED: PNEUMOCOCCAL ADMINISTRATION CHARGE ONE (08:00)
[2020-06-08] MEDS ORDERED: INFLUENZA ADMINISTRATION CHARGE ONE (08:00)
[2020-06-08] MEDS ORDERED: PNEUMOCOCCAL POLYSACCHARIDES 25 MCG/0.5 ML VIAL/SYR IM ONE (08:00)
[2020-06-08] MEDS ORDERED: INFLUENZA VIRUS QUAD VACCINE 0.5 ML SYR IM ONE (08:00)
[2020-06-08] MEDS: POTASSIUM CHLORIDE 10 MEQ TABCR PO SCH (09:12)
[2020-06-08] MEDS: FUROSEMIDE 20 MG TAB PO SCH (09:12)
[2020-06-08] MEDS: ASPIRIN 81 MG ECTAB PO SCH (09:12)
[2020-06-08] MEDS: ATORVASTATIN 10 MG TAB PO SCH (09:12)
[2020-06-08] MEDS ORDERED: GADOBUTROL 65ML VIAL IV ONE (10:07)
--- NOTE | 2020-06-08 10:39 | Magnetic Resonance Report ---
Brain MRI WITH AND WITHOUT CONTRAST HISTORY: dizziness, dysmetria, ?CVA cerebellar TECHNIQUE: Multiplanar multisequence MRI of the brain was performed both before and after the intrave nous administration of contrast. COMPARISON STUDY: Head CT 06/07/2020. Brain MRI 05/20/2012. FINDINGS: There is no hematoma, midline shift, or acute infarct. The paranasal sinuses are clear. The mastoid air cells are clear. The ventricles and sulci demonstrate moderate age-related involutional changes. Scattered foci of T2 hyperintensity seen within the periventricular and subcortical white ma tter are nonspecific but suggestive of mild microvascular ischemic changes. The major vascular flow v oids at the skull base are well-maintained. There is a 7 mm extra-axial enhancing lesion within the w ithin the left cerebellopontine angle cistern. This is near the opening of the left internal auditory canal. This favors a small acoustic neuroma or meningioma. Punctate old lacunar infarct in the left cerebellar hemisphere and small foci of encephalomalacia and gliosis within the left parietal lobe co nsistent with an old infarct. IMPRESSION: 1. No acute intracranial abnormality. 2. Moderate atrophy and microvascular ischemic changes. 3. A 7 mm extra-axial enhancing lesion within the left cerebellopontine angle cistern near the openin g of the left internal auditory canal. This favors a small acoustic neuroma or meningioma. ACT 112: Negative or not required by law. Electronically signed by: Jericho Armenta M.D. 06/08/2020 10:37 AM
--- NOTE | 2020-06-08 18:24 | Hospitalist Progress Note ---
Date of Service June 08, 2020 Assessment & Plan (1) Cognitive disorder: Patient has confusion at baseline He lives at home with his At this time his would like to take him home but is concerned about ambulation MRI of the brain and CT of the head without contrast negative for acute findings other than listed under the headaches section of this note Continue PT Recommended word find, puzzles, card games to continue to work with cognitive function Patient and have noticed decline in cognitive function and would like follow-up with neurology We will defer to outpatient We will assist patient in establishing new primary care provider as 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 He does not use any ambulatory device at home such as a walker or cane He has had at least 1 fall and another episode where he slid down the wall to the floor Physical therapy revealed some unsteadiness to gait and rehab is suggested Will request physical therapy again for the morning and either discharge the patient home to physical therapy at home 2 to 3 days a week or to inpatient rehab at [facility] Activity with assistance while inpatient (3) Neck pain: No acute fracture or subluxation on CT of the cervical spine Positive for degenerative change Recommend outpatient physical therapy Patient denies radiculopathy to the upper extremities (4) Headache: CT of the head without acute findings MRI brain without contrast * Revealed 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 Favoring small acoustic neuroma or meningioma. Recommended outpatient follow-up with neurosurgery on discharge At this time, patient and are hesitant to travel out of the [place] area The patient does have a daughter who lives in [place] but is reluctant to involve her in care We will continue to encourage outpatient follow-up (5) Hypercholesterolemia: Continue atorvastatin (6) Hypertension: Continue amlodipine and lisinopril Patient also is prescribed furosemide 20 mg p.o. daily as an outpatient (7) DVT prophylaxis: We will hold off on chemical prophylaxis at this time Ambulate as tolerated with assistance Anticipate discharge tomorrow Admission and Anticipated Discharge Date Admission Date: June 07, 2020 Subjective Attending: Dr. Mehdi Frank This is an 85-year-old male who was admitted yesterday for weakness and dizziness. I spent 90 minutes with the patient and his . He apparently has had dizziness and some weakness for the last 2-1/2 weeks. Approximately 2 weeks ago he fell and since that time has had pain behind his right ear extending into his neck. The pain is been such that he has been sleeping in a recliner. Yesterday, he reports he had increased pain and dizziness and came to the hospital via ambulance for evaluation. He had a CT scan of the head which was negative for acute findings. An MRI of the brain without contrast was negative for acute findings other than a 7 mm extra-axial enhancing lesion within the left cerebral pontine angle cistern near the opening of the left internal auditory canal. This favors a small acoustic neuroma or meningioma. Patient's states that this is a new finding for the patient. Patient continues to have some pain behind the right ear and in the neck. CT scan of the cervical spine shows no acute fracture or subluxation. His dizziness is improved. He has no nausea or vomiting. He reports no new hearing loss. He has no visual disturbances or diplopia. The patient denies fever or chills. He has no shortness of breath or chest pain. He has no syncope or presyncope. He does have some confusion which his says is persistent. No other acute complaints noted. Review of Systems Review of Systems: All systems reviewed & are unremarkable except as noted in Subjective Physical Exam Physical Exam: GENERAL : No acute distress EYES: No icterus, gaze conjugate. Pupils equal round and reactive to light NOSE: No evidence of epistaxis MOUTH: No lesions or candidiasis. Mucosa moist NECK: Supple LUNGS: CTA B/L, no wheezes, rales or rhonchi HEART: Regular, rate controlled ABDOMEN: Soft, NT, ND, BS Present EXTREMITIES: No LE edema, pedal pulses intact NEURO: Awake and alert. Patient has some features of dementia. He has no focal neurological deficits regarding motion. Negative pronator drift. Pupils are equal round and reactive to light. Patient follows commands. Cerebellar function intact with [id number] and rapid alternating movements. Gait and Romberg are deferred. Results & Data Results & Data ([facility]) Vital Signs (Past 12 Hours) Vital Signs Temp Pulse Pulse Pulse Resp BP BP 06/08/20 15:30 74 06/08/20 15:20 36.4 C L 76 18 149/79 H 06/08/20 11:43 36.7 C 76 16 142/73 H 06/08/20 07:46 76 06/08/20 07:08 36.6 C 81 16 144/77 H Pulse Ox 06/08/20 15:30 06/08/20 15:20 95 06/08/20 11:43 96 06/08/20 07:46 06/08/20 07:08 93 Laboratory Results 06/08/20 06:53 06/08/20 06:53 06/07/20 18:34 Troponin I < 0.015 Diagnostic Findings Brain MRI WITH AND WITHOUT CONTRAST HISTORY: dizziness, dysmetria, ?CVA cerebellar TECHNIQUE: Multiplanar multisequence MRI of the brain was performed both before and after the intravenous administration of contrast. COMPARISON STUDY: Head CT 06/07/2020. Brain MRI 05/20/2012. FINDINGS: There is no hematoma, midline shift, or acute infarct. The paranasal sinuses are clear. The mastoid air cells are clear. The ventricles and sulci demonstrate moderate age-related involutional changes. Scattered foci of T2 hyperintensity seen within the periventricular and subcortical white matter are nonspecific but suggestive of mild microvascular ischemic changes. The major vascular flow voids at the skull base are well-maintained. There is a 7 mm extra-axial enhancing lesion within the within the left cerebellopontine angle cistern. This is near the opening of the left internal auditory canal. This favors a small acoustic neuroma or meningioma. Punctate old lacunar infarct in the left cerebellar hemisphere and small foci of encephalomalacia and gliosis within the left parietal lobe consistent with an old infarct. IMPRESSION: 1. No acute intracranial abnormality. 2. Moderate atrophy and microvascular ischemic changes. 3. A 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 This favors a small acoustic neuroma or meningioma. ACT 112: Negative or not required by law. Electronically signed by: Jericho Armenta M.D. 06/08/2020 10:37 AM PG Care Time/CCT Total # of Minutes Spent Total Time Spent with Patient: Total time spent is greater than 50% in coordination of care (as documented) at patient's floor/unit and/or counseling patient: 90 minutes including discussion with and patient on multiple visits. Also long discussion with family with case management Coding Level of Care Code 43441 Subseq Hosp Care Lvl 3 Diagnoses Cognitive disorder F09 Ambulatory dysfunction R26.2 Neck pain M54.2 Headache G44.319 Headache chronicity pattern: acute headache Headache type: post-traumatic Intractability: not intractable Hypercholesterolemia E78.00 Hypertension I10 Hypertension type: essential hypertension DVT prophylaxis Z29.9 Time Spent (min) 90 (1) Headache Headache chronicity pattern: acute headache Headache type: post-traumatic Intractability: not intractable Qualified Code(s): G44.319 - Acute post- traumatic headache, not intractable (2) Hypertension Hypertension type: essential hypertension Qualified Code(s): I10 - Essential (primary) hypertension
--- NOTE | 2020-06-08 22:28 | Electrocardiogram Report ---
Test Reason : Blood Pressure : / mmHG Vent. Rate : 058 BPM Atrial Rate : 058 BPM P-R Int : 224 ms QRS Dur : 138 ms QT Int : 448 ms P-R-T Axes : 042 -16 016 degrees QTc Int : 439 ms Poor data quality, interpretation may be adversely affected Sinus bradycardia with 1st degree A-V block Right bundle branch block Possible Inferior infarct Abnormal ECG When compared with ECG of 11-APR-2016 08:53, No significant change was found Confirmed by Juan F Linder ([id number]) on 06/08/2020 10:28:08 PM Referred By: REFERRED SELF Confirmed By:Juan F Linder
[2020-06-09] MEDS: ACETAMINOPHEN 500 MG TAB PO SCH ×2 (05:00→13:31)
[2020-06-09] MEDS: ASPIRIN 81 MG ECTAB PO SCH (08:58)
[2020-06-09] MEDS: ATORVASTATIN 10 MG TAB PO SCH (08:58)
[2020-06-09] MEDS: POTASSIUM CHLORIDE 10 MEQ TABCR PO SCH (08:58)
[2020-06-09] MEDS: FUROSEMIDE 20 MG TAB PO SCH (08:58)
--- NOTE | 2020-06-14 08:04 | Discharge Summary ---
Date of Service June 09, 2020 Admission HPI Per Admitting Provider Steve Winn is a pleasant 85yo male with history of HTN, HLP, GERD presenting with dizziness/weakness and ambulatory dysfunction. Patient had a ground level fall last week and hit the back of his head. He did not lose consciousness, no anticoagulants. He has had significant discomfort since the fall - pain located in the left occiput, band-like to the top of the head and down lateral neck and SCM muscle. He has been taking OTC tylenol with minimal relief. Today patient had some difficulty standing, had some left leg instability and imbalance. No SOB/CP/nausea/vomiting/visual changes/neck stiffness ER Course: Acetaminophen, Dexamethasone, Meclizine Admission Exam Per Admitting Provider General: patient resting comfortably, NAD, non-toxic in appearance, AA&O to person/location - some confusion to date Skin: warm, dry, intact, no rashes or lesions HEENT: NC/AT, PERRL, EOMI, anicteric sclera, conjunctiva without injection, external ear normal to inspection and nontender, nares patent, moist mucus membranes, dentition intact, no oropharyngeal lesions, neck supple, trachea midline, no LAD, no thyromegaly, no JVD +tenderness with palpation of left posterior occiput and SCM muscle, mild warmth to muscle Heart: +S1/S2, regular, no m/r/g Lungs: equal air entry bilaterally, no rales/rhonchi/wheezes Abd: +BS, soft, NT/ND, no masses/organomegaly/ascites Ext: warm, 2+ pulses in UE/LE bilaterally, no clubbing/cyanosis or edema Neuro: AA&O to person and location, CN II - XII intact, sensation to light touch intact, equal and intact bilaterally, +dysmetria with finger to nose with LUE Principal Diagnosis Weakness and confusion Discharge Exam GENERAL : No acute distress EYES: No icterus, gaze conjugate. Pupils equal round and reactive to light NOSE: No evidence of epistaxis MOUTH: No lesions or candidiasis. Mucosa moist NECK: Supple LUNGS: CTA B/L, no wheezes, rales or rhonchi HEART: Regular, rate controlled ABDOMEN: Soft, NT, ND, BS Present EXTREMITIES: No LE edema, pedal pulses intact NEURO: Awake and alert. Patient has some features of dementia. He has no focal neurological deficits regarding motion. Negative pronator drift. Pupils are equal round and reactive to light. Patient follows commands. Cerebellar function intact with [id number] and rapid alternating movements. Gait and Romberg are deferred. Discharge Data Allergies Allergy/AdvReac Type Severity Reaction Status Date / Time No Known Drug Allergies Allergy Verified 06/07/20 19:29 Consultations 06/07/20 20:20 ED Decision to Admit Stat 06/09/20 15:31 Burn CD for patient Routine Ordered Studies 06/07/20 18:14 CT cervical spine wo con Stat CT head/brain wo con Stat 06/08/20 09:37 MR brain wo/w con Routine Hospital Course (1) Cognitive disorder: Patient has confusion at baseline He lives at home with his MRI of the brain and CT of the head without contrast negative for acute findings other than listed under the headaches section of this note Recommended word find, puzzles, card games to continue to work with cognitive function Patient and have noticed decline in cognitive function and would like foll ow-up with neurology MRI of the brain revealed a 7 mm extra-axial enhancing lesion as listed below Recommend follow-up with neurosurgery but patient and hesitant. Met with daughter who will help facilitate follow-up appointment (2) Ambulatory dysfunction: Patient with lightheadedness and unsteadiness over the last 2 to 3 weeks. He does not use any ambulatory device at home such as a walker or cane He has had at least 1 fall and another episode where he slid down the wall to the floor Physical therapy revealed some unsteadiness to gait and rehab is suggested Patient discharged to [facility] for further physical therapy and more detailed evaluation of ambulatory dysfunction (3) Neck pain: No acute fracture or subluxation on CT of the cervical spine Positive for degenerative change Recommend outpatient physical therapy Patient denies radiculopathy to the upper extremities (4) Headache: CT of the head without acute findings MRI brain without contrast * Revealed 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 Favoring small acoustic neuroma or meningioma. Recommended outpatient follow-up with neurosurgery on discharge We discussed this at length with the daughter who will further discuss with parents regarding follow-up with neurosurgery A CD was burnt for the patient on discharge including CT scan of the head as well as MRI of the head. Reports were also sent with the patient (5) Hypercholesterolemia: Continue atorvastatin (6) Hypertension: Continue amlodipine and lisinopril Patient also is prescribed furosemide 20 mg p.o. daily as an outpatient Continue outpatient meds on discharge (7) DVT prophylaxis: We will hold off on chemical prophylaxis while inpatient Ambulate as tolerated with assistance Discharged to [facility] today Total Time Total Time Spent Total Time Spent (In Minutes): 60 minutes including discussion with case management, daughter, and patient and his Total Time Includes: Examination of the Patient, Discharge Planning, Medication Reconciliation and Communication With Other Providers Discharge Plan Discharge Items Patient Disposition: Transfer Inpatient Rehab Fac Reason For Visit: DIZZINESS,WEAKNESS Discharge Diagnosis: Dizziness, weakness Activity: As commented below Activity Comment: As directed by inpatient rehab facility Lifting: Gradually increase as tolerated Bathing: No limitations Sexual Activity: Wait until after follow-up appointment Exercise/Sports: Gradually increase as tolerated Driving/Machine Use: No driving Weightbearing: Full weightbearing Non-emergency contact: Primary Care Provider Call non-emergency contact if: you have any medication questions and your pain is concerning for you Follow-up/Referrals: Leonides Cassidy III, CRNP [Primary Care Provider] - Diet: Heart Healthy Addtl Attending Provider Instructions: You were admitted with lightheadedness and dizziness after a fall. You had a CT scan of the head which was negative for acute findings. He also had a CT scan of the cervical spine which was also negative for acute findings. There was some evidence of degenerative joint disease on that image. An MRI of your brain was completed and showed a 7 mm area of concern for acoustic neuroma versus hemangioma. It is recommended that you follow-up with a neurosurgeon at either [facility], [facility], [facility] in [place] or in [place]. Pending Studies at Discharge: No Stand-Alone Forms: My [facility] Skilled Items Patient informed of condition?: Yes DNR: No Discharge Level of Care: Acute rehab Communicable Disease: No Discharge Prognosis: Stable Lines: None Urinary Catheter: No Medications and DC Order Prescriptions: Continued fluocinolone 0.025 % cream 1 appln TOP BID Qty: 60 RF: 1 furosemide 20 mg tablet 20 mg PO DAILY Qty: 30 RF: 5 zolpidem 5 mg tablet 5 mg PO HS PRN (Reason: insomnia) Qty: 30 RF: 2 potassium chloride 10 mEq tablet extended release 10 meq PO DAILY Qty: 90 RF: 1 atorvastatin 10 mg tablet 10 mg PO DAILY Qty: 90 RF: 1 amlodipine 5 mg tablet 5 mg PO DAILY Qty: 30 RF: 5 lisinopril 10 mg tablet 10 mg PO BID Qty: 180 RF: 1 Discharge Orders: Discharge Order (Routine); Ordered 06/09/20 Ordered By: Vinod Rosas Admission Data Admit Date/Time: 06/07/20 20:57 Attending Provider: Mehdi Frank Admit Provider: Marixa Nance Primary Care Provider: Leonides Cassidy III Other Providers: Mehdi Frank ; [facility] Other Interventions: Discharge Summary Assessment (RN) Last Done: 06/09/20 15:27 Coding Level of Care Code D/C Day Management >30 mins Diagnoses Cognitive disorder F09 Ambulatory dysfunction R26.2 Neck pain M54.2 Headache G44.319 Headache chronicity pattern: acute headache Headache type: post-traumatic Intractability: not intractable Hypercholesterolemia E78.00 Hypertension I10 Hypertension type: essential hypertension DVT prophylaxis Z29.9 Time Spent (min) 60
== END 2020-06-09 18:38 ==
LOC: 2W 17:48 → ED 17:48 → SUATTDRO 20:57 → 2W 21:21

== ENCOUNTER 2023-01-11 18:36 | Inpatient (IN) ==
[2023-01-11] MEDS ORDERED: SODIUM CHLORIDE 0.9% 1000ML 1,000 ML IV SCH (18:45)
--- NOTE | 2023-01-11 18:47 | Emergency Department Note ---
Impression & Plan Altered mental status, Sepsis, MARITZA (acute kidney injury), Hypernatremia ED Provider Note ED Provider Note NAME: ADALI TRIMBLE AGE:87 SEX: Male : 1935 ARRIVES VIA: EMS INFORMANT: EMS ED PROVIDER(s): Fely Toro DO CHIEF COMPLAINT: Altered mental status HPI: This is an 87-year-old male presents emerged part via EMS due to staff concern of facility where he resides for decline in his mentation throughout the course of the day, worse this afternoon. Patient does reside in a dementia specific unit at a local long-term care facility. Staff reported to EMS he had just completed a course of antibiotics for a urinary tract infection. He seemed well and in his usual state of health and mobility until today. They states while patient is confused he is typically ambulatory. They state today he was much more fatigued and lethargic, refusing to walk. Unknown if any falls, and EMS did note a new dressing to the area of the left elbow. PAST MEDICAL HISTORY:See Below PAST SURGICAL HISTORY:See Below FAMILY HISTORY:See Below SOCIAL HISTORY:See Below HOME MEDICATIONS:See Below ALLERGIES:See Below VITALS:See Below PHYSICAL EXAMINATION: GENERAL: unwell appearing, well nourished, no distress, non-toxic EYE EXAM: normal conjunctiva, PERRL and EOM's grossly intact OROPHARYNX: no exudate, no erythema, lips, buccal mucosa, and tongue normal and mucous membranes are moist NECK: supple, no nuchal rigidity, no adenopathy, non-tender LUNGS: Clear to auscultation. Normal chest wall mechanics, no w/r/r HEART: no murmurs, S1 normal and S2 normal ABDOMEN: abdomen soft, non-tender, normo-active bowel sounds, no masses, no rebound or guarding. BACK: Back is symmetrical on inspection and there is no deformity, no midline tenderness, no CVA tenderness. SKIN: no rashes, petechiae, orbruising UPPER EXTREMITIES: upper extremities are grossly normal. nml pulses b/l. Patient holds arms across his abdomen, tremors noted, dressing over hematoma on left lateral elbow, no obvious deformity, various areas of ecchymosis LOWER EXTREMITIES: No pitting edema. nml pulses b/l. No obvious trauma or deformity. Hips and knees flexed, tremors noted NEURO EXAM: Confused, will not follow commands, no obvious facial droop, occasionally tries to speak, tremors noted Vital Signs: reviewed and remarkable Differential Diagnosis: MARITZA, CVA, ICH, dehydration, medication ADR, worsening dementia, electrolyte abnormality, sepsis, as well as others were considered MEDICAL DECISION MAKING: This is an elderly male who presents from a local facility due to weakness, ams, and poor po intake. Patient with a history of dementia and unable to provide additional history. VS stable on arrival. Labs drawn and sent, IV established, EKG and CXR performed and interpreted at bedside, and patient placed on telemetry. Patient sent for CT head additionally given age and prior ICH. Patient started on IVF due to concern for sepsis. Lab reported patient with significant elevation of his creatinine, new compared to prior. IVF then slowed and changed to LR. Patient found to be hypernatremic additionally. He appeared clinically dehydrated and this was confirmed by nursing staff who reported he hadn't had anything by mouth all day. GIven recent UTI, patient sent for additional imaging to r/o other pathology given he is unable to provide additional history. Initial lactic acid elevated, however repeat was improving. He was given empiric cefepime. No prior urine culture for comparison. Case discussed with the hospitalist for additional evaluation and treatment. Consultation(s): 1853: Discussed with director school of nursing at [facility]. States the patient was on day 9 out of 10 of Augmentin twice daily. She states he has never had this much of a decline previously to their knowledge. He does not typically demonstrate tremors or remain in a contracted position like they sell today. She states he did not have anything by mouth today including his medications. She states she did contact his daughter who is the POA. 2210: Patient more alert, awake, tried to answer more questions. Tremors lessened. 2299: Discussed with Dr. Herrera, [facility] hospitalist team. ER Treatment Provided: See below Diagnostics Interpreted By Me: -ECG: Normal sinus at 90, first-degree AV block, right bundle branch block, normal QTc, rightward axis, nonspecific ST/T wave change -Cardiac Monitoring: An order was placed for continuous cardiac monitoring. The monitor shows a rate of 88 with normal sinus rhythm. -Laboratory studies: As stated above and show below. -Imaging studies: X-ray Chest: A single view study of the chest was reviewed and was negative for cardiomegaly, focal infiltrate, effusion, pulmonary edema, or wide mediastinum. Triage Nursing Note Reviewed Prior/Outside Records Reviewed - prior DC summary reviewed Critical Care: Critical care of 48 min performed to assess and manage high likelihood of life- threatening sepsis, involving labs and imaging performed with assessment to evaluate sepsis diagnosis with frequent reassessment. This time includes bedside time, treatment discussions with patient/family/consultants, documentat ion time and excludes procedure time. Past Med/Surg History Medical History Ambulatory dysfunction Anemia Anxiety disorder Benign prostatic hyperplasia with urinary obstruction Cognitive disorder Disc degeneration, lumbar Gastro-esophageal reflux Headache History of needle biopsy of prostate with negative result Hypercholesterolemia Hyperlipidemia Hypertension Impaired fasting glucose Neck pain Urethral stricture Weakness Surgical History History of liver biopsy History of tonsillectomy History of transurethral resection of prostate Status post osteotomy History of Bunion Correction With Metatarsal Osteotomy Family History Father Myocardial infarction Hypertension Heart disease Cardiac disorder Sister Alzheimer disease Mother Parkinson disease Unknown Diabetes Prostate cancer Hypertension Denies family history of Clotting disorder Breast cancer Social History Smoking Status: Unknown if ever smoked packs per day: 0.5; Preferred Language: Burmese Communication Ability: Unable Biotechnician Required: No marital status: Current Living Situation: Long-Term Current Living Situation Comment: Pt lives at [facility] on Dementia unit current occupational status: retired How many Children do You have: 4 Seatbelt Use: always Assistive Devices: Wheelchair Allergies Allergies Allergy/AdvReac Type Severity Reaction Status Date / Time cephalexin Allergy Unknown ON [facility] Verified 01/11/23 21:15 [employer] MED LIST sulfamethoxazole Allergy Unknown ON [facility] Verified 01/11/23 21:15 [From Bactrim] [facility] MED LIST trimethoprim [From Bactrim] Allergy Unknown ON [facility] Verified 01/11/23 21:15 [facility] MED LIST Home Meds Home Medications Medication Instructions Recorded Confirmed furosemide 40 mg tablet 40 mg PO DAILY 09/23/21 01/11/23 acetaminophen 325 mg tablet 650 mg PO Q4H PRN GENERALIZED 01/11/23 01/11/23 (Tylenol) DISCOMFORT amoxicillin 500 mg-potassium 1 tab PO TID 01/11/23 01/11/23 clavulanate 125 mg tablet buspirone 5 mg tablet 5 mg PO BID 01/11/23 01/11/23 donepezil 5 mg tablet 5 mg PO HS 01/11/23 01/11/23 finasteride 5 mg tablet 5 mg PO HS 01/11/23 01/11/23 magnesium hydroxide 400 mg/5 mL 30 ml PO Q6H PRN Constipation 01/11/23 01/11/23 oral suspension (Milk of Magnesia) olanzapine 2.5 mg tablet See Rx Instructions .Route .COMPLEX 01/11/23 01/11/23 tamsulosin 0.4 mg capsule 0.4 mg PO QPM 01/11/23 01/11/23 Previous Rx's Medication Instructions Recorded potassium chloride 10 mEq 10 meq PO DAILY #90 tabs 08/18/20 tablet,extended release Results & Data (ED) Vital Signs Vital Signs - 24 hr 01/11/23 18:50 01/11/23 19:18 01/11/23 19:35 Pulse Rate 89 95 H Pulse Rate from SpO2 Sensor Respiratory Rate 20 22 20 Blood Pressure 123/90 Blood Pressure Mean 101 Blood Pressure Position Semi-fowlers Pulse Oximetry 94 Oxygen Delivery Method Nasal Cannula Oxygen Flow Rate 4 Sepsis Recent Fever Within 48 Hours No Sepsis New/Unexplained Change in Mental Status Yes Sepsis Action Taken by Nursing No Action Required 01/11/23 19:43 01/11/23 20:00 01/11/23 20:30 Pulse Rate 78 83 Pulse Rate from SpO2 Sensor 82 81 Respiratory Rate 23 18 Blood Pressure 123/90 Blood Pressure Mean 101 Blood Pressure Position Pulse Oximetry 93 96 97 Oxygen Delivery Method Nasal Cannula Nasal Cannula Nasal Cannula Oxygen Flow Rate 4 4 4 Sepsis Recent Fever Within 48 Hours Sepsis New/Unexplained Change in Mental Status Sepsis Action Taken by Nursing Laboratory Data 01/11/23 19:22 01/11/23 19:22 Lab Results 01/11/23 01/11/23 01/11/23 Range/Units 19:22 19:22 19:22 WBC 20.17 H (4.8-10.8) K/ul RBC 4.58 L (4.70-6.10) M/uL Hgb 14.7 (14.0-18.0) g/dl Hct 47.0 (42.0-52.0) % MCV 102.6 H (80.0-100.0) fL MCH 32.1 (25.0-34.0) pg MCHC 31.3 L (32.0-36.0) g/dL RDW Std Deviation 58.4 H (36.4-46.3) fL RDW Coeff of Norberto 15.9 H (11.5-14.5) % Plt Count 241 (130-400) K/uL MPV 10.7 (9.4-12.4) fL Immature Gran % (Auto) 0.6 % Neut % (Auto) 81.8 % Lymph % (Auto) 12.0 % Liberty % (Auto) 5.1 % Eos % (Auto) 0.2 % Baso % (Auto) 0.3 % Neut # (Auto) 16.51 H (1.40-6.50) K/uL Lymph # (Auto) 2.42 (1.2-3.4) K/uL Liberty # (Auto) 1.02 H (0.11-0.59) K/uL Eos # (Auto) 0.04 (0-0.50) K/uL Baso # (Auto) 0.06 (0-0.2) K/uL Immature Gran # (Auto) 0.12 (0.01-0.20) K/uL Absolute Nucleated RBC 0.02 (0-0.12) K/uL Nucleated RBC % (auto) 0.1 % Sodium 164 H* (136-145) mmol/L Potassium 4.7 (3.5-5.1) mmol/L Chloride 130 H (98-107) mmol/L Carbon Dioxide 21 (21-32) mmol/L Anion Gap 13 H (3-11) BUN 106 H (6-23) mg/dl Creatinine 3.47 H (0.6-1.4) mg/dl Est Cr Clr Drug Dosing 14.0 ml/min Est GFR ( Amer) 17.4 ml/min Est GFR (Non-Af Amer) 15.0 ml/min BUN/Creatinine Ratio 30.5 H (10-20) Glucose 126 H (70-99(Fasting)) mg/dl Estimat Average Glucose mg/dl Hemoglobin A1c (4.5-5.6) % Lactate (0.4-2.0) mmol/L Calcium 10.0 (8.6-10.3) mg/dl Magnesium 3.6 H (1.7-2.4) mg/dl Total Bilirubin 0.8 (0.2-1.0) mg/dl Direct Bilirubin 0.2 (0-0.2) mg/dl AST 48 H (13-39) U/L ALT 52 (7-52) U/L Alkaline Phosphatase 107 H (34-104) U/L Troponin I High Sens 992.1 H* (0-20) pg/ml Total Protein 8.7 H (6.0-8.3) gm/dl Albumin 3.9 (3.4-5.0) gm/dl Procalcitonin 0.22 (0-0.5) ng/ml Urine Color Urine Appearance (Clear) Urine pH (4.5-7.5) Ur Specific [place] (1.000-1.030) Urine Protein (Negative) Urine Glucose (UA) (Negative) Urine Ketones (Negative) Urine Blood (Negative) Urine Nitrite (Negative) Urine Bilirubin (Negative) Urine Urobilinogen (Negative) Ur Leukocyte Esterase (Negative) Urine WBC (Auto) (0-5) /hpf Urine RBC (Auto) (0-4) /hpf U Hyaline Cast (Auto) (0-5) /lpf U Epithel Cells (Auto) (0-5) /lpf Urine Bacteria (Auto) (Negative) Urine Yeast SARS-CoV-2, RNA, NAAT (NEGATIVE) 01/11/23 01/11/23 01/11/23 Range/Units 19:22 19:25 21:13 WBC (4.8-10.8) K/ul RBC (4.70-6.10) M/uL Hgb (14.0-18.0) g/dl Hct (42.0-52.0) % MCV (80.0-100.0) fL MCH (25.0-34.0) pg MCHC (32.0-36.0) g/dL RDW Std Deviation (36.4-46.3) fL RDW Coeff of Norberto (11.5-14.5) % Plt Count (130-400) K/uL MPV (9.4-12.4) fL Immature Gran % (Auto) % Neut % (Auto) % Lymph % (Auto) % Liberty % (Auto) % Eos % (Auto) % Baso % (Auto) % Neut # (Auto) (1.40-6.50) K/uL Lymph # (Auto) (1.2-3.4) K/uL Liberty # (Auto) (0.11-0.59) K/uL Eos # (Auto) (0-0.50) K/uL Baso # (Auto) (0-0.2) K/uL Immature Gran # (Auto) (0.01-0.20) K/uL Absolute Nucleated RBC (0-0.12) K/uL Nucleated RBC % (auto) % Sodium (136-145) mmol/L Potassium (3.5-5.1) mmol/L Chloride (98-107) mmol/L Carbon Dioxide (21-32) mmol/L Anion Gap (3-11) BUN (6-23) mg/dl Creatinine (0.6-1.4) mg/dl Est Cr Clr Drug Dosing ml/min Est GFR ( Amer) ml/min Est GFR (Non-Af Amer) ml/min BUN/Creatinine Ratio (10-20) Glucose (70-99(Fasting)) mg/dl Estimat Average Glucose 146 mg/dl Hemoglobin A1c 6.7 H (4.5-5.6) % Lactate 3.6 H* 2.2 H* (0.4-2.0) mmol/L Calcium (8.6-10.3) mg/dl Magnesium (1.7-2.4) mg/dl Total Bilirubin (0.2-1.0) mg/dl Direct Bilirubin (0-0.2) mg/dl AST (13-39) U/L ALT (7-52) U/L Alkaline Phosphatase (34-104) U/L Troponin I High Sens (0-20) pg/ml Total Protein (6.0-8.3) gm/dl Albumin (3.4-5.0) gm/dl Procalcitonin (0-0.5) ng/ml Urine Color Urine Appearance (Clear) Urine pH (4.5-7.5) Ur Specific [place] (1.000-1.030) Urine Protein (Negative) Urine Glucose (UA) (Negative) Urine Ketones (Negative) Urine Blood (Negative) Urine Nitrite (Negative) Urine Bilirubin (Negative) Urine Urobilinogen (Negative) Ur Leukocyte Esterase (Negative) Urine WBC (Auto) (0-5) /hpf Urine RBC (Auto) (0-4) /hpf U Hyaline Cast (Auto) (0-5) /lpf U Epithel Cells (Auto) (0-5) /lpf Urine Bacteria (Auto) (Negative) Urine Yeast SARS-CoV-2, RNA, NAAT (NEGATIVE) 01/11/23 01/11/23 Range/Units 21:50 22:57 WBC (4.8-10.8) K/ul RBC (4.70-6.10) M/uL Hgb (14.0-18.0) g/dl Hct (42.0-52.0) % MCV (80.0-100.0) fL MCH (25.0-34.0) pg MCHC (32.0-36.0) g/dL RDW Std Deviation (36.4-46.3) fL RDW Coeff of Norberto (11.5-14.5) % Plt Count (130-400) K/uL MPV (9.4-12.4) fL Immature Gran % (Auto) % Neut % (Auto) % Lymph % (Auto) % Liberty % (Auto) % Eos % (Auto) % Baso % (Auto) % Neut # (Auto) (1.40-6.50) K/uL Lymph # (Auto) (1.2-3.4) K/uL Liberty # (Auto) (0.11-0.59) K/uL Eos # (Auto) (0-0.50) K/uL Baso # (Auto) (0-0.2) K/uL Immature Gran # (Auto) (0.01-0.20) K/uL Absolute Nucleated RBC (0-0.12) K/uL Nucleated RBC % (auto) % Sodium (136-145) mmol/L Potassium (3.5-5.1) mmol/L Chloride (98-107) mmol/L Carbon Dioxide (21-32) mmol/L Anion Gap (3-11) BUN (6-23) mg/dl Creatinine (0.6-1.4) mg/dl Est Cr Clr Drug Dosing ml/min Est GFR ( Amer) ml/min Est GFR (Non-Af Amer) ml/min BUN/Creatinine Ratio (10-20) Glucose (70-99(Fasting)) mg/dl Estimat Average Glucose mg/dl Hemoglobin A1c (4.5-5.6) % Lactate (0.4-2.0) mmol/L Calcium (8.6-10.3) mg/dl Magnesium (1.7-2.4) mg/dl Total Bilirubin (0.2-1.0) mg/dl Direct Bilirubin (0-0.2) mg/dl AST (13-39) U/L ALT (7-52) U/L Alkaline Phosphatase (34-104) U/L Troponin I High Sens (0-20) pg/ml Total Protein (6.0-8.3) gm/dl Albumin (3.4-5.0) gm/dl Procalcitonin (0-0.5) ng/ml Urine Color Red Urine Appearance Turbid A (Clear) Urine pH 5.5 (4.5-7.5) Ur Specific [place] 1.017 (1.000-1.030) Urine Protein 2+ H (Negative) Urine Glucose (UA) Trace H (Negative) Urine Ketones Negative (Negative) Urine Blood 3+ H (Negative) Urine Nitrite Negative (Negative) Urine Bilirubin Negative (Negative) Urine Urobilinogen Negative (Negative) Ur Leukocyte Esterase 3+ H (Negative) Urine WBC (Auto) >30 H (0-5) /hpf Urine RBC (Auto) >30 H (0-4) /hpf U Hyaline Cast (Auto) 1-5 (0-5) /lpf U Epithel Cells (Auto) 5-10 H (0-5) /lpf Urine Bacteria (Auto) Negative (Negative) Urine Yeast Not Reportable SARS-CoV-2, RNA, NAAT NEGATIVE (NEGATIVE) Administered Medications Buspirone HCl (Buspirone 5 Mg Tab) 5 mg PO BID AFTAB Stop: 02/11/23 20:59 Last Admin: 01/13/23 11:17 Dose: 5 mg Documented By: Admin: 01/12/23 20:55 Dose: 5 mg Documented By: ELMA Donepezil HCl (Donepezil Hcl 5 Mg Tab) 5 mg PO HS AFTAB Stop: 02/11/23 20:59 Last Admin: 01/12/23 20:55 Dose: 5 mg Documented By: ELMA Finasteride (Finasteride 5 Mg Tab) 5 mg PO HS AFTAB Stop: 02/11/23 20:59 Last Admin: 01/12/23 20:52 Dose: 5 mg Documented By: ELMA Heparin Sodium (Porcine) (Heparin Sod 5,000 Unit/0.5 Ml Vial) 5,000 units SQ Q8 AFTAB Stop: 02/11/23 05:59 Last Admin: 01/13/23 14:43 Dose: 5,000 units Documented By: Admin: 01/13/23 06:00 Dose: 5,000 units Documented By: Admin: 01/12/23 21:00 Dose: 5,000 units Documented By: Admin: 01/12/23 15:47 Dose: 5,000 units Documented By: Admin: 01/12/23 05:46 Dose: 5,000 units Documented By: JANA Piperacillin Sod/Tazobactam (Sod 4.5 gm/ Dextrose) 120 mls @ 30 mls/hr IV Q12H AFTAB; Protocol Stop: 01/22/23 08:59 Last Admin: 01/13/23 21:21 Dose: 30 mls/hr Documented By: Infusion: 01/13/23 12:23 Dose: 0 mls/hr Documented By: Admin: 01/13/23 08:23 Dose: 30 mls/hr Documented By: Infusion: 01/13/23 01:43 Dose: 0 mls/hr Documented By: Admin: 01/12/23 21:43 Dose: 30 mls/hr Documented By: Infusion: 01/12/23 13:47 Dose: 0 mls/hr Documented By: Admin: 01/12/23 09:43 Dose: 30 mls/hr Documented By: JAMAAL Dextrose (D5w) 1,000 mls @ 100 mls/hr IV .Q10H AFTAB Stop: 02/11/23 15:59 Last Admin: 01/13/23 12:21 Dose: 100 mls/hr Documented By: Infusion: 01/13/23 12:21 Dose: 100 mls/hr Documented By: Admin: 01/13/23 02:33 Dose: 100 mls/hr Documented By: Infusion: 01/13/23 02:07 Dose: 100 mls/hr Documented By: Admin: 01/12/23 16:07 Dose: 100 mls/hr Documented By: DAISY Albumin Human (Albumin 25%) 25 gm in 100 mls @ 50 mls/hr IV Q8H AFTAB Stop: 01/15/23 19:59 Last Admin: 01/13/23 21:21 Dose: 50 mls/hr Documented By: Infusion: 01/13/23 13:49 Dose: 0 mls/hr Documented By: Admin: 01/13/23 11:26 Dose: 50 mls/hr Documented By: Infusion: 01/13/23 06:04 Dose: 0 mls/hr Documented By: Admin: 01/13/23 04:01 Dose: 50 mls/hr Documented By: Infusion: 01/12/23 23:11 Dose: 0 mls/hr Documented By: Admin: 01/12/23 20:51 Dose: 50 mls/hr Documented By: ELMA Tamsulosin HCl (Tamsulosin Hcl 0.4 Mg Cap) 0.4 mg PO QPM AFTAB Stop: 02/11/23 20:59 Last Admin: 01/12/23 20:55 Dose: 0.4 mg Documented By: ELMA Discontinued Medications Sodium Chloride (Nss 1000ml) 1,000 mls @ 999 mls/hr IV .Q1H1M ATFAB Stop: 01/11/23 19:45 Last Infusion: 01/11/23 21:04 Dose: 0 mls/hr Documented By: Admin: 01/11/23 19:59 Dose: 999 mls/hr Documented By: AILEEN Cefepime HCl (Maxipime) 2,000 mg in 20 mls @ 5 mls/min IV NOW STA; Protocol Stop: 01/11/23 20:18 Last Admin: 01/11/23 20:38 Dose: 5 mls/min Documented By: AILEEN Lactated Ringer's (Lr) 1,000 mls @ 125 mls/hr IV .Q8H AFTAB Stop: 02/10/23 22:29 Last Infusion: 01/12/23 00:53 Dose: 0 mls/hr Documented By: Infusion: 01/11/23 23:21 Dose: 0 mls/hr Documented By: Admin: 01/11/23 22:36 Dose: 125 mls/hr Documented By: Dextrose/Sodium Chloride (D5w And 1/2nss) 1,000 mls @ 250 mls/hr IV .Q4H STA Stop: 01/12/23 03:14 Last Infusion: 01/12/23 05:47 Dose: 0 mls/hr Documented By: Admin: 01/11/23 23:22 Dose: 250 mls/hr Documented By: AILEEN Piperacillin Sod/Tazobactam (Sod 4.5 gm/ Dextrose) 120 mls @ 240 mls/hr IV ONE ONE; Protocol Stop: 01/12/23 01:29 Last Infusion: 01/12/23 02:15 Dose: 0 mls/hr Documented By: Admin: 01/12/23 01:32 Dose: 240 mls/hr Documented By: JANA Dextrose/Sodium Chloride (D5w And 1/2nss) 1,000 mls @ 200 mls/hr IV .Q5H AFTAB Stop: 02/11/23 03:29 Last Infusion: 01/12/23 15:58 Dose: 0 mls/hr Documented By: Admin: 01/12/23 14:53 Dose: 200 mls/hr Documented By: Infusion: 01/12/23 14:40 Dose: 200 mls/hr Documented By: Admin: 01/12/23 09:40 Dose: 200 mls/hr Documented By: Infusion: 01/12/23 09:09 Dose: 250 mls/hr Documented By: Admin: 01/12/23 05:09 Dose: 250 mls/hr Documented By: JANA Potassium Chloride (K Osvaldo / Wtr) 10 meq in 100 mls @ 100 mls/hr IV Q1H AFTAB; Protocol Stop: 01/13/23 07:29 Last Infusion: 01/13/23 08:12 Dose: 0 mls/hr Documented By: Admin: 01/13/23 07:06 Dose: 100 mls/hr Documented By: Infusion: 01/13/23 07:00 Dose: 100 mls/hr Documented By: Admin: 01/13/23 06:00 Dose: 100 mls/hr Documented By: Infusion: 01/13/23 06:00 Dose: 100 mls/hr Documented By: Admin: 01/13/23 05:06 Dose: 100 mls/hr Documented By: Infusion: 01/13/23 05:01 Dose: 100 mls/hr Documented By: Admin: 01/13/23 04:01 Dose: 100 mls/hr Documented By: ELMA Perflutren Lipid Microsphere (Perflutren Lipid Microsphere (Definity)) 2 ml IV ONCE ONE Stop: 01/12/23 09:22 Last Admin: 01/12/23 09:21 Dose: 2 ml Documented By: DAA Imaging Data Radiologist's Impression: Head CT 01/11/23 18:43 Exam(s): CT HEAD Without Contrast EXAM: CT Head Without Intravenous Contrast CLINICAL HISTORY: Reason for exam: ams. TECHNIQUE: Axial computed tomography images of the head/brain without intravenous contrast. Automated exposure control was utilized for the study. A dose lowering technique was utilized adhering to the principles of ALARA. COMPARISON: No relevant prior studies available. FINDINGS: No acute intracranial hemorrhage. No midline shift or mass effect. The territorial perla-white matter differentiation is maintained throughout. Age-related cerebral volume loss. Periventricular and subcortical white matter hypoattenuation, consistent with chronic microangiopathy. The visualized orbits appear grossly unremarkable. The calvarium is intact. The visualized paranasal sinuses and mastoid air cells are grossly clear. IMPRESSION: No acute intracranial hemorrhage, midline shift, or mass effect. Electronically signed by: Hermilo Osei MD 01/11/23 19:52 PM Abdomen/Pelvis CT 01/11/23 20:52 Exam(s): CT ABDOMEN + PELVIS Without Contrast EXAM: CT Abdomen and Pelvis Without Intravenous Contrast CLINICAL HISTORY: Reason for exam: acute kidney injury. TECHNIQUE: Axial computed tomography images of the abdomen and pelvis without intravenous contrast. Automated exposure control was utilized for the study. A dose lowering technique was utilized adhering to the principles of ALARA. COMPARISON: No relevant prior studies available. FINDINGS: Lung bases: Unremarkable. No mass. No consolidation. ABDOMEN: Liver: Unremarkable. Gallbladder and bile ducts: Unremarkable. No calcified stones. No ductal dilation. Pancreas: Unremarkable. No ductal dilation. Spleen: Unremarkable. No splenomegaly. Adrenals: Unremarkable. No mass. Kidneys and ureters: Bilateral renal cysts. No obstructing stones. No hydronephrosis. Stomach and bowel: Diverticulosis, without acute diverticulitis. No small bowel obstruction. No free intraperitoneal air. PELVIS: Appendix: Normal appendix. Bladder: Unremarkable. No stones. Reproductive: Unremarkable as visualized. ABDOMEN and PELVIS: Intraperitoneal space: Unremarkable. No free air. No significant fluid collection. Bones/joints: Degenerative changes of the spine. No acute fracture. No dislocation. Soft tissues: Unremarkable. Vasculature: Atherosclerotic changes of the aorta. No abdominal aortic aneurysm. Lymph nodes: Unremarkable. No enlarged lymph nodes. IMPRESSION: No acute findings in the abdomen or pelvis. Electronically signed by: Hermilo Osei MD 01/11/23 21:[address] 01/11/23 20:52 Exam(s): CT CHEST Without Contrast EXAM: CT Chest Without Intravenous Contrast CLINICAL HISTORY: Reason for exam: hypoxia. TECHNIQUE: Axial computed tomography images of the chest without intravenous contrast. Automated exposure control was utilized for the study. A dose lowering technique was utilized adhering to the principles of ALARA. COMPARISON: No relevant prior studies available. FINDINGS: Lungs: Emphysema. Pleural space: Unremarkable. No pneumothorax. No significant effusion. Heart: Cardiomegaly. No significant pericardial effusion. No significant coronary artery calcifications. Bones/joints: Degenerative changes of the spine. No acute fracture. No dislocation. Soft tissues: Unremarkable. Vasculature: Atherosclerotic changes of the aorta. No thoracic aortic aneurysm. Lymph nodes: Unremarkable. No enlarged lymph nodes. IMPRESSION: No acute findings in the chest. Electronically signed by: Hermilo Osei MD 01/11/23 21:39 PM Discharge Plan Visit Data Chief Complaint: Unresponsive ED Provider: Fely Toro Discharge Problem: Altered mental status, Sepsis, MARITZA (acute kidney injury), Hypernatremia Patient Disposition: Admitted As Inpatient Discharge Instructions Interventions: ED Discharge Assessment Last Done: 01/12/23 00:06
--- NOTE | 2023-01-11 19:53 | CT Scan Report ---
Exam(s): CT HEAD Without Contrast EXAM: CT Head Without Intravenous Contrast CLINICAL HISTORY: Reason for exam: ams. TECHNIQUE: Axial computed tomography images of the head/brain without intravenous contrast. Automated exposure control was utilized for the study. A dose lowering technique was utilized adhering to the principles of ALARA. COMPARISON: No relevant prior studies available. FINDINGS: No acute intracranial hemorrhage. No midline shift or mass effect. The territorial perla-white matter differentiation is maintained throughout. Age-related cerebral volume loss. Periventricular and subcortical white matter hypoattenuation, consistent with chronic microangiopathy. The visualized orbits appear grossly unremarkable. The calvarium is intact. The visualized paranasal sinuses and mastoid air cells are grossly clear. IMPRESSION: No acute intracranial hemorrhage, midline shift, or mass effect. Electronically signed by: Hermilo Osei MD 01/11/23 19:52 PM
[2023-01-11 20:03] LABS: Basophils # (auto) 0.06 K/uL (0-0.2); Basophils % (auto) 0.3 %; Eosinophils # (auto) 0.04 K/uL (0-0.50); Eosinophils % (auto) 0.2 %; Hemoglobin 14.7 g/dl (14.0-18.0); Immature Granulocytes # (auto) 0.12 K/uL (0.01-0.20); Immature Granulocytes % (auto) 0.6 %; Lymphocytes # (auto) 2.42 K/uL (1.2-3.4); Mean Corpuscular Hemoglobin 32.1 pg (25.0-34.0); Mean Corpuscular Hgb Conc 31.3 g/dL (32.0-36.0); Mean Corpuscular Volume 102.6 fL (80.0-100.0); Mean Platelet Volume 10.7 fL (9.4-12.4); Monocytes # (auto) 1.02 K/uL (0.11-0.59); Monocytes % (auto) 5.1 %; Neutrophils # (auto) 16.51 K/uL (1.40-6.50); Neutrophils % (auto) 81.8 %; Nucleated RBC # (auto) 0.02 K/uL (0-0.12); Nucleated RBC % (auto) 0.1 %; Platelet Count 241 K/uL (130-400); RDW Coefficient of Variation 15.9 % (11.5-14.5); RDW Standard Deviation 58.4 fL (36.4-46.3); Red Blood Count 4.58 M/uL (4.70-6.10); White Blood Count 20.17 K/ul (4.8-10.8)
[2023-01-11] MEDS ORDERED: CEFEPIME 2,000 MG/20 ML VIAL IV STA (20:15)
[2023-01-11 20:25] LABS: Albumin Level 3.9 gm/dl (3.4-5.0); BUN Creatinine Ratio 30.5 (10-20); Bilirubin Direct 0.2 mg/dl (0-0.2); Bilirubin,Total 0.8 mg/dl (0.2-1.0); Est GFR (African American) 17.4 ml/min; Magnesium 3.6 mg/dl (1.7-2.4); Potassium 4.7 mmol/L (3.5-5.1); Total Protein 8.7 gm/dl (6.0-8.3)
[2023-01-11 20:39] LABS: Troponin I High Sensitivity 992.1 pg/ml (0-20)
--- NOTE | 2023-01-11 21:40 | CT Scan Report ---
Exam(s): CT CHEST Without Contrast EXAM: CT Chest Without Intravenous Contrast CLINICAL HISTORY: Reason for exam: hypoxia. TECHNIQUE: Axial computed tomography images of the chest without intravenous contrast. Automated exposure control was utilized for the study. A dose lowering technique was utilized adhering to the principles of ALARA. COMPARISON: No relevant prior studies available. FINDINGS: Lungs: Emphysema. Pleural space: Unremarkable. No pneumothorax. No significant effusion. Heart: Cardiomegaly. No significant pericardial effusion. No significant coronary artery calcifications. Bones/joints: Degenerative changes of the spine. No acute fracture. No dislocation. Soft tissues: Unremarkable. Vasculature: Atherosclerotic changes of the aorta. No thoracic aortic aneurysm. Lymph nodes: Unremarkable. No enlarged lymph nodes. IMPRESSION: No acute findings in the chest. Electronically signed by: Hermilo Osei MD 01/11/23 21:39 PM
--- NOTE | 2023-01-11 21:47 | CT Scan Report ---
Exam(s): CT ABDOMEN + PELVIS Without Contrast EXAM: CT Abdomen and Pelvis Without Intravenous Contrast CLINICAL HISTORY: Reason for exam: acute kidney injury. TECHNIQUE: Axial computed tomography images of the abdomen and pelvis without intravenous contrast. Automated exposure control was utilized for the study. A dose lowering technique was utilized adhering to the principles of ALARA. COMPARISON: No relevant prior studies available. FINDINGS: Lung bases: Unremarkable. No mass. No consolidation. ABDOMEN: Liver: Unremarkable. Gallbladder and bile ducts: Unremarkable. No calcified stones. No ductal dilation. Pancreas: Unremarkable. No ductal dilation. Spleen: Unremarkable. No splenomegaly. Adrenals: Unremarkable. No mass. Kidneys and ureters: Bilateral renal cysts. No obstructing stones. No hydronephrosis. Stomach and bowel: Diverticulosis, without acute diverticulitis. No small bowel obstruction. No free intraperitoneal air. PELVIS: Appendix: Normal appendix. Bladder: Unremarkable. No stones. Reproductive: Unremarkable as visualized. ABDOMEN and PELVIS: Intraperitoneal space: Unremarkable. No free air. No significant fluid collection. Bones/joints: Degenerative changes of the spine. No acute fracture. No dislocation. Soft tissues: Unremarkable. Vasculature: Atherosclerotic changes of the aorta. No abdominal aortic aneurysm. Lymph nodes: Unremarkable. No enlarged lymph nodes. IMPRESSION: No acute findings in the abdomen or pelvis. Electronically signed by: Hermilo Osei MD 01/11/23 21:45 PM
[2023-01-11] MEDS ORDERED: LACTATED RINGER'S 1,000 ML IV SCH (22:30)
[2023-01-11] MEDS ORDERED: D5W AND 1/2NSS 1,000 ML IV STA (23:15)
[2023-01-11 23:16] LABS: Appearance Urine Turbid (Clear); Bacteria Urine Automated Negative (Negative); Bilirubin Urine Negative (Negative); Blood Urine 3+ (Negative); Color Urine Red; Glucose Urine UA Trace (Negative); Ketones Urine Negative (Negative); Leukocyte Esterase Urine 3+ (Negative); Nitrite Urine Negative (Negative); Protein Urine 2+ (Negative); RBC Urine Automated >30 /hpf (0-4); Specific Gravity Urine 1.017 (1.000-1.030); Urobilinogen Urine Negative (Negative); WBC Urine Automated >30 /hpf (0-5); pH Urine 5.5 (4.5-7.5)
--- NOTE | 2023-01-11 23:41 | History & Physical Report ---
Date of Service January 11, 2023 Assessment & Plan (1) Encephalopathy: Plan: Hypoactive delirium on dementia Multifactorial: Severe sepsis (SIRS plus lactic acid elevation plus kidney dysfunction plus encephalopathy) secondary to recurrent complicated UTI, history BPH status post surgery Worsening hypernatremia Neuropsychotropic medications contributory Troponin elevation secondary to illness in the setting of rhabdomyolysis, kidney dysfunction hypertension, BP on the lower side, currently not on maintenance medications history traumatic subdural hematoma chronic anemia, hemoglobin better than baseline likely secondary to hemoconcentration Prediabetes, hemoglobin A1c of 5.9 from 2019 Medical telemetry Neha GREEN on the basis of microbiologic history (history enteric pathogens and Enterococcus as per records) D5 half-normal for initial IVF given need for free water and volume resuscitation. Appropriate to hold home neuropsychotropic meds for now Monitor creatinine response to IVF Nephrology consult if without improvement (Patient daughter not interested in dialysis for patient.) Follow troponin, TTE if with progression Update hemoglobin A1c DVT prophylaxis. Heparin subcu DNR as per daughter/POA, Ms. Adeola Samuels. She requests updates from providers through her contact number [phone]. Text document was generated using [employer] voice recognition software. It may contain grammatical or spelling errors. Kindly contact undersigned for clarification of any documentation item in question. History of Present Illness Chief Complaint: Decline in mentation Primary Care Provider: REDDY Wagoner History obtained from patient, family, and records. Limited history from patient secondary to dementia. Medical history significant for hypertension, hyperlipidemia, history traumatic subdural hematoma, CRI (baseline creatinine 1.2-1.3 ), chronic anemia (baseline hemoglobin 11), mood disorder, BPH status post surgery, prediabetes, dementia. [place] [facility] [place] traumatic subdural hematoma causing brain compression. No surgical intervention. Patient initially discharged to [facility] [place] group home and rehab. Patient eventually discharge to [facility] (dementia unit) last March 2022. Patient started on Augmentin course 2 weeks ago by dementia unit provider for Proteus UTI. Outpatient lab work 2 weeks ago showed serum sodium of 152 and creatinine of 1.8. Patient initially well but noted to be in lethargic today. Patient refusing to walk. Patient brought to the ER for evaluation. IV cefepime administered at the ER. 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 Allergies Allergy/AdvReac Type Severity Reaction Status Date / Time cephalexin Allergy Unknown ON [facility] Verified 01/11/23 21:15 [facility] sulfamethoxazole Allergy Unknown ON [facility] Verified 01/11/23 21:15 [From Bactrim] [facility] trimethoprim [From Bactrim] Allergy Unknown ON [facility] Verified 01/11/23 21:15 [facility] Home Medications Medication Instructions Recorded Confirmed Type potassium chloride 10 mEq 10 meq PO DAILY #90 tabs 08/18/20 01/11/23 Rx tablet,extended release furosemide 40 mg tablet 40 mg PO DAILY 09/23/21 01/11/23 History acetaminophen 325 mg tablet 650 mg PO Q4H PRN GENERALIZED 01/11/23 01/11/23 History (Tylenol) DISCOMFORT amoxicillin 500 mg-potassium 1 tab PO TID 01/11/23 01/11/23 History clavulanate 125 mg tablet buspirone 5 mg tablet 5 mg PO BID 01/11/23 01/11/23 History donepezil 5 mg tablet 5 mg PO HS 01/11/23 01/11/23 History finasteride 5 mg tablet 5 mg PO HS 01/11/23 01/11/23 History magnesium hydroxide 400 mg/5 mL 30 ml PO Q6H PRN Constipation 01/11/23 01/11/23 History oral suspension (Milk of Magnesia) olanzapine 2.5 mg tablet See Rx Instructions .Route .COMPLEX 01/11/23 01/11/23 History tamsulosin 0.4 mg capsule 0.4 mg PO QPM 01/11/23 01/11/23 History Past Med/Surg History Medical History Anemia Anxiety disorder Benign prostatic hyperplasia with urinary obstruction Cognitive disorder Disc degeneration, lumbar Gastro-esophageal reflux Headache History of needle biopsy of prostate with negative result Hypercholesterolemia Hyperlipidemia Hypertension Impaired fasting glucose Urethral stricture Weakness Surgical History History of liver biopsy History of tonsillectomy History of transurethral resection of prostate Status post osteotomy History of Bunion Correction With Metatarsal Osteotomy Family History Father Myocardial infarction Hypertension Heart disease Cardiac disorder Sister Alzheimer disease Mother Parkinson disease Unknown Diabetes Prostate cancer Hypertension Denies family history of Clotting disorder Breast cancer Social History Smoking Status: Unknown if ever smoked packs per day: 0.5; Preferred Language: Bermudian Communication Ability: Unable Bearingizer Required: No marital status: Current Living Situation: Senior Living Current Living Situation Comment: Pt lives at [facility] on Dementia unit current occupational status: retired How many Children do You have: 4 Seatbelt Use: always Review of Systems Review of Systems: Could not be reliably obtained secondary to dementia Physical Exam Physical Exam: GENERAL: Demented, uncomfortable, tremulous, no respiratory distress SKIN: Pallor, warm HEENT: Pale palpebral conjunctivae, no ptosis, dry buccal mucosa NECK : Supple, no tenderness CHEST : CTA, no tenderness HEART : RRR, no obvious murmurs ABDOMEN: Some distention, nontender EXTREMITIES : No LE swelling/tenderness, no other conspicuous deformities noted NEUROLOGIC : Demented, no facial asymmetry, tremulous, gait and stance not assessed Results & Data Results & Data Vital Signs (Past 12 Hours) Vital Signs Pulse Resp BP Pulse Ox O2 Del Method O2 Flow Rate 01/11/23 23:00 92 H 20 91 Nasal Cannula 4 01/11/23 22:30 100 H 17 91 Nasal Cannula 4 01/11/23 22:00 96 H 16 94 Nasal Cannula 01/11/23 21:30 140 H 16 96 Nasal Cannula 01/11/23 21:00 86 20 95 Nasal Cannula 3 01/11/23 20:30 83 18 97 Nasal Cannula 4 01/11/23 20:00 78 23 123/90 96 Nasal Cannula 4 01/11/23 19:43 93 Nasal Cannula 4 01/11/23 19:35 95 H 20 01/11/23 19:18 89 22 01/11/23 18:50 20 123/90 94 Nasal Cannula 4 Laboratory Results Laboratory Results WBC 20.17 K/ul (4.8-10.8) H 01/11/23 19:22 RBC 4.58 M/uL (4.70-6.10) L 01/11/23 19:22 Hgb 14.7 g/dl (14.0-18.0) 01/11/23 19:22 Hct 47.0 % (42.0-52.0) 01/11/23 19:22 MCV 102.6 fL (80.0-100.0) H 01/11/23 19:22 MCH 32.1 pg (25.0-34.0) 01/11/23 19: MCHC 31.3 g/dL (32.0-36.0) L 01/11/23 19: RDW Std Deviation 58.4 fL (36.4-46.3) H 01/11/23 19: RDW Coeff of Norberto 15.9 % (11.5-14.5) H 01/11/23: Plt Count 241 K/uL (130-400) 01/11/23 19: MPV 10.7 fL (9.4-12.4) 01/11/23 19:22 Immature Gran % (Auto) 0.6 % 01/11/23 19:22 Neut % (Auto) 81.8 % 01/11/23 19:22 Lymph % (Auto) 12.0 % 01/11/23 19:22 Eaton % (Auto) 5.1 % 01/11/23 19:22 Eos % (Auto) 0.2 % 01/11/23 19:22 Baso % (Auto) 0.3 % 01/11/23:22 Neut # (Auto) 16.51 K/uL (1.40-6.50) H 01/11/23 19:22 Lymph # (Auto) 2.42 K/uL (1.2-3.4) 01/11/23 19:22 Eaton # (Auto) 1.02 K/uL (0.11-0.59) H 01/11/23 19:22 Eos # (Auto) 0.04 K/uL (0-0.50) 01/11/23 19:22 Baso # (Auto) 0.06 K/uL (0-0.2) 01/11/23 19:22 Immature Gran # (Auto) 0.12 K/uL (0.01-0.20) 01/11/23 19:22 Absolute Nucleated RBC 0.02 K/uL (0-0.12) 01/11/23 19:22 Nucleated RBC % (auto) 0.1 % 01/11/23 19:22 Sodium 164 mmol/L (136-145) H* 01/11/23 19:22 Potassium 4.7 mmol/L (3.5-5.1) 01/11/23 19:22 Chloride 130 mmol/L (98-107) H 01/11/23 19:22 Carbon Dioxide 21 mmol/L (21-32) 01/11/23 19:22 Anion Gap 13 (3-11) H 01/11/23 19:22 BUN 106 mg/dl (6-23) H 01/11/23 19:22 Creatinine 3.47 mg/dl (0.6-1.4) H 01/11/23 19:22 Est Cr Clr Drug Dosing 14.0 ml/min 01/11/23 19:22 Est GFR ( Amer) 17.4 ml/min 01/11/23 19:22 Est GFR (Non-Af Amer) 15.0 ml/min 01/11/23 19:22 BUN/Creatinine Ratio 30.5 (10-20) H 01/11/23 19:22 Glucose 126 mg/dl (70-99(Fasting)) H 01/11/23 19:22 Lactate 2.2 mmol/L (0.4-2.0) H* 01/11/23 21:13 Calcium 10.0 mg/dl (8.6-10.3) 01/11/23 19:22 Magnesium 3.6 mg/dl (1.7-2.4) H 01/11/23 19:22 Total Bilirubin 0.8 mg/dl (0.2-1.0) 01/11/23 19:22 Direct Bilirubin 0.2 mg/dl (0-0.2) 01/11/23 19:22 AST 48 U/L (13-39) H 01/11/23 19:22 ALT 52 U/L (7-52) 01/11/23 19:22 Alkaline Phosphatase 107 U/L (34-104) H 01/11/23 19:22 Troponin I High Sens 992.1 pg/ml (0-20) H* 01/11/23 19:22 Total Protein 8.7 gm/dl (6.0-8.3) H 01/11/23 19:22 Albumin 3.9 gm/dl (3.4-5.0) 01/11/23 19:22 Procalcitonin 0.22 ng/ml (0-0.5) 01/11/23 19:22 SARS-CoV-2, RNA, NAAT NEGATIVE (NEGATIVE) 01/11/23 21:[address] 01/11/23 18:43 Exam(s): CT HEAD Without Contrast EXAM: CT Head Without Intravenous Contrast CLINICAL HISTORY: Reason for exam: ams. TECHNIQUE: Axial computed tomography images of the head/brain without intravenous contrast. Automated exposure control was utilized for the study. A dose lowering technique was utilized adhering to the principles of ALARA. COMPARISON: No relevant prior studies available. FINDINGS: No acute intracranial hemorrhage. No midline shift or mass effect. The territorial perla-white matter differentiation is maintained throughout. Age-related cerebral volume loss. Periventricular and subcortical white matter hypoattenuation, consistent with chronic microangiopathy. The visualized orbits appear grossly unremarkable. The calvarium is intact. The visualized paranasal sinuses and mastoid air cells are grossly clear. IMPRESSION: No acute intracranial hemorrhage, midline shift, or mass effect. Electronically signed by: Hermilo Osei MD 01/11/23 19:52 PM Abdomen/Pelvis CT 01/11/23 20:52 Exam(s): CT ABDOMEN + PELVIS Without Contrast EXAM: CT Abdomen and Pelvis Without Intravenous Contrast CLINICAL HISTORY: Reason for exam: acute kidney injury. TECHNIQUE: Axial computed tomography images of the abdomen and pelvis without intravenous contrast. Automated exposure control was utilized for the study. A dose lowering technique was utilized adhering to the principles of ALARA. COMPARISON: No relevant prior studies available. FINDINGS: Lung bases: Unremarkable. No mass. No consolidation. ABDOMEN: Liver: Unremarkable. Gallbladder and bile ducts: Unremarkable. No calcified stones. No ductal dilation. Pancreas: Unremarkable. No ductal dilation. Spleen: Unremarkable. No splenomegaly. Adrenals: Unremarkable. No mass. Kidneys and ureters: Bilateral renal cysts. No obstructing stones. No hydronephrosis. Stomach and bowel: Diverticulosis, without acute diverticulitis. No small bowel obstruction. No free intraperitoneal air. PELVIS: Appendix: Normal appendix. Bladder: Unremarkable. No stones. Reproductive: Unremarkable as visualized. ABDOMEN and PELVIS: Intraperitoneal space: Unremarkable. No free air. No significant fluid collection. Bones/joints: Degenerative changes of the spine. No acute fracture. No dislocation. Soft tissues: Unremarkable. Vasculature: Atherosclerotic changes of the aorta. No abdominal aortic aneurysm. Lymph nodes: Unremarkable. No enlarged lymph nodes. IMPRESSION: No acute findings in the abdomen or pelvis. Electronically signed by: Hermilo Osei MD 01/11/23 21:[address] 01/11/23 20:52 Exam(s): CT CHEST Without Contrast EXAM: CT Chest Without Intravenous Contrast CLINICAL HISTORY: Reason for exam: hypoxia. TECHNIQUE: Axial computed tomography images of the chest without intravenous contrast. Automated exposure control was utilized for the study. A dose lowering technique was utilized adhering to the principles of ALARA. COMPARISON: No relevant prior studies available. FINDINGS: Lungs: Emphysema. Pleural space: Unremarkable. No pneumothorax. No significant effusion. Heart: Cardiomegaly. No significant pericardial effusion. No significant coronary artery calcifications. Bones/joints: Degenerative changes of the spine. No acute fracture. No dislocation. Soft tissues: Unremarkable. Vasculature: Atherosclerotic changes of the aorta. No thoracic aortic aneurysm. Lymph nodes: Unremarkable. No enlarged lymph nodes. IMPRESSION: No acute findings in the chest. Electronically signed by: Hermilo Osei MD 01/11/23 21:39 PM Diagnostic Findings EKG as per my interpretation : Rate 90, NSR, LAD, LAFB, RBBB, no ischemia
[2023-01-12] MEDS ORDERED: PIPERACILLIN/TAZOBACTAM 4.5 GM/120 ML BAG IV STA (00:39)
[2023-01-12] MEDS ORDERED: PROMETHAZINE HCL 6.25 MG in SODIUM CHLORIDE 0.9% 50 ML IV PRN (00:51)
[2023-01-12] MEDS ORDERED: ACETAMINOPHEN 325 MG TAB PO PRN (00:51)
[2023-01-12] MEDS ORDERED: PIPERACILLIN/TAZOBACTAM 4.5 GM in DEXTROSE 5% 100 ML IV ONE (01:00)
[2023-01-12 03:14] LABS: Troponin I High Sensitivity 970.1 pg/ml (0-20)
[2023-01-12 03:17] LABS: BUN Creatinine Ratio 33.1 (10-20); Calcium 8.9 mg/dl (8.6-10.3); Creatinine Clr Calc Pharmacy 15.2 ml/min; Est GFR (African American) 19.1 ml/min; Est GFR (Non-African American) 16.5 ml/min; Potassium 4.3 mmol/L (3.5-5.1)
[2023-01-12] MEDS: D5W AND 1/2NSS 1,000 ML IV SCH ×3 (05:09→14:53)
[2023-01-12] MEDS: HEPARIN SOD 5,000 UNIT/0.5 ML VIAL SQ SCH ×3 (05:46→21:00)
--- NOTE | 2023-01-12 07:19 | XRay Report ---
XR chest 1V portable HISTORY: Sepsis COMPARISON: Chest 11/08/2021. FINDINGS: The lungs are clear. Cardiac silhouette is normal in size. No pleural effusions. No pneumot horax. IMPRESSION: No acute process. ACT 112: Negative or not required by law. Electronically signed by: Jericho Armenta M.D. 01/12/2023 7:18 AM
[2023-01-12 07:26] LABS: Base Excess VBG -4.8 mEq/L; HCO3 VBG 21 mmol/L; Oxygen Saturation VBG < 60.0 %; PCO2 VBG 41 mmHg (38-50); PO2 VBG 21 mmHg; pH VBG 7.32 (7.36-7.41)
[2023-01-12 07:38] LABS: Basophils # (auto) 0.04 K/uL (0-0.2); Basophils % (auto) 0.2 %; Eosinophils # (auto) 0.06 K/uL (0-0.50); Eosinophils % (auto) 0.3 %; Hematocrit (blood only) 40.5 % (42.0-52.0); Hemoglobin 12.5 g/dl (14.0-18.0); Immature Granulocytes # (auto) 0.14 K/uL (0.01-0.20); Immature Granulocytes % (auto) 0.7 %; Lymphocytes # (auto) 2.32 K/uL (1.2-3.4); Lymphocytes % (auto) 11.8 %; Mean Corpuscular Hemoglobin 31.6 pg (25.0-34.0); Mean Corpuscular Hgb Conc 30.9 g/dL (32.0-36.0); Mean Corpuscular Volume 102.5 fL (80.0-100.0); Mean Platelet Volume 10.8 fL (9.4-12.4); Monocytes % (auto) 4.1 %; Neutrophils # (auto) 16.28 K/uL (1.40-6.50); Neutrophils % (auto) 82.9 %; Platelet Count 205 K/uL (130-400); RDW Coefficient of Variation 15.9 % (11.5-14.5); RDW Standard Deviation 58.2 fL (36.4-46.3); Red Blood Count 3.95 M/uL (4.70-6.10); White Blood Count 19.64 K/ul (4.8-10.8)
[2023-01-12 07:44] LABS: Estimated Average Glucose 146 mg/dl; Hemoglobin A1C 6.7 % (4.5-5.6)
[2023-01-12 08:04] LABS: BUN Creatinine Ratio 30.2 (10-20); Calcium 8.9 mg/dl (8.6-10.3); Est GFR (African American) 18.8 ml/min; Est GFR (Non-African American) 16.3 ml/min; Magnesium 3.2 mg/dl (1.7-2.4); Potassium 4.3 mmol/L (3.5-5.1)
[2023-01-12 08:06] LABS: Troponin I High Sensitivity 1039.1 pg/ml (0-20)
--- NOTE | 2023-01-12 08:37 | Electrocardiogram Report ---
Test Reason : Blood Pressure : / mmHG Vent. Rate : 090 BPM Atrial Rate : 090 BPM P-R Int : 222 ms QRS Dur : 134 ms QT Int : 396 ms P-R-T Axes : 058 249 051 degrees QTc Int : 484 ms Poor data quality, interpretation may be adversely affected Sinus rhythm with 1st degree A-V block Right bundle branch block Abnormal ECG When compared with ECG of 08-NOV-2021 14:46, No significant change Confirmed by Luis Short ([id number]) on 01/12/2023 8:37:31 AM Referred By: REFERRED SELF Confirmed By:Luis Short
[2023-01-12] MEDS ORDERED: PERFLUTREN LIPID MICROSPHERE (DEFINITY) IV ONE (09:21)
[2023-01-12] MEDS: PIPERACILLIN/TAZOBACTAM 4.5 GM in DEXTROSE 5% 100 ML IV SCH ×2 (09:43→21:43)
--- NOTE | 2023-01-12 10:36 | Electrocardiogram Report ---
Test Reason : Blood Pressure : / mmHG Vent. Rate : 070 BPM Atrial Rate : 070 BPM P-R Int : 212 ms QRS Dur : 142 ms QT Int : 434 ms P-R-T Axes : 043 -53 033 degrees QTc Int : 468 ms Poor data quality, interpretation may be adversely affected Sinus rhythm with 1st degree A-V block Right bundle branch block Left anterior fascicular block Abnormal ECG When compared with ECG of 11-JAN-2023 19:20, No significant change Confirmed by Luis Short ([id number]) on 01/12/2023 10:36:24 AM Referred By: REFERRED SELF Confirmed By:Luis Short
--- NOTE | 2023-01-12 13:40 | Hospitalist Progress Note ---
Date of Service January 12, 2023 Assessment & Plan (1) Encephalopathy: Plan: Acute metabolic encephalopathy Could have underlying delirium in setting of dementia, Hypernatremia, Uremia, Severe Sepsis --CT Head:No acute intracranial hemorrhage, midline shift, or mass effect. Reorient frequently Address any reversible causes Fall precautions Monitor Severe sepsis Possible sources: Complicated UTI H/O BPH S/P Surgery CT chest, abdomen and pelvis showed no acute findings Blood, urine culture pending Empirically on Zosyn Continue IV fluids Hypernatremia Likely due to dehydration/Poor oral intake Sodium 164>161 Monitor sodium levels closely Continue IV fluids Nephrology consulted MARITZA on CKD III Likely Multifactorial ATN/Prerenal/Rhabdo Cr:3.24 Avoid Nephrotoxic agents as able Monitor renal function Continue IV fluids Bladder scan as needed to monitor for any retention We will consider renal USD if no improvement Acute rhabdomyolysis Troponin elevation likely secondary to above EKG showed no signs of acute ischemia ECHO: No regional wall motion abnormality noted CK Level:6201>1262 Continue IV fluids Other chronic conditions H/O Traumatic subdural hematoma Chronic anemia Prediabetes: HbA1C 5.9 from 2019 Dementia Mood disorder BPH S/p Surgery Continue home medications Hold home Lasix for now DVT Px: Heparin SQ Code Status DNI/DNR Admission and Anticipated Discharge Date Admission Date: January 11, 2023 Subjective Patient is seen and examined at bedside Unable to obtain any history secondary to dementia,? Hearing impairment No distress on exam Seem to be lethargic Afebrile Saturating well on 2 L supplemental oxygen Review of Systems Review of Systems: All systems reviewed & are unremarkable except as noted in Subjective Physical Exam Physical Exam: Physical Exam: Vitals signs as noted above General Appearance:Thin, Frail, Chronic ill appearing, elderly, no apparent distress Head: normocephalic, Atraumatic Eyes: normal inspection, EOMI Neck: supple, Trachea midline Respiratory/Chest: Normal breath sounds, CTA, No accessory muscle use Cardiovascular: S1, S2, No murmur Abdomen/GI:Soft, Non tender, Bowel sounds present Extremities/Musculoskeletal:normal inspection,1+ edema Neurologic/Psych:grossly no focal neurological deficits, +Dementia, ?Hearing impairment Skin: normal color, warm Results & Data Results & Data Vital Signs (Past 12 Hours) Vital Signs Temp Pulse Pulse Resp BP Pulse Ox O2 Del Method 01/12/23 11:02 36.6 C 77 20 125/74 92 Nasal Cannula 01/12/23 10:40 Nasal Cannula 01/12/23 08:17 36.6 C 69 20 143/54 H 98 Nasal Cannula 01/12/23 07:38 68 01/12/23 03:45 36.5 C 80 22 105/69 97 Nasal Cannula O2 Flow Rate 01/12/23 11:02 4.5 01/12/23 10:40 4 01/12/23 08:17 4.5 01/12/23 07:38 01/12/23 03:45 4
[2023-01-12] MEDS: DEXTROSE 5% 1,000 ML IV SCH (16:07)
[2023-01-12] MEDS: ALBUMIN 25% 25 GM/100 ML VIAL IV SCH (20:51)
[2023-01-12] MEDS: FINASTERIDE 5 MG TAB PO SCH (20:52)
[2023-01-12] MEDS: busPIRone 5 MG TAB PO SCH (20:55)
[2023-01-12] MEDS: TAMSULOSIN HCL 0.4 MG CAP PO SCH (20:55)
[2023-01-12] MEDS ORDERED: DONEPEZIL HCL 5 MG TAB PO SCH (21:00)
--- NOTE | 2023-01-13 00:55 | Consultation Report ---
NEPHROLOGY CONSULTATION NOTE REASON FOR CONSULTATION: Hypernatremia and acute renal failure. HISTORY OF PRESENT ILLNESS: The patient is an 87-year-old male with dementia and is currently a resi dent of [facility] since March 2022. The patient was given a course of Augmen tin 2 weeks ago for urinary tract infection. Blood work done 2 weeks ago showed serum sodium of 152 and a creatinine of 1.8. Blood work from last year shows a creatinine at baseline around 1.2. The p atient is not able to give me any history. He is currently getting D5 half normal saline at 200 mL p er hour. The patient was brought to the Emergency Department yesterday for further evaluation and tr eatment. The patient received IV cefepime. Initially, he was given Ringer's lactate. There was lizzy picion about sepsis secondary to recurrent complicated urinary tract infection. The patient's vital signs appear pretty reasonable at this time. Serum sodium was 164 at the time of admission, most rec ent one is still 161, creatinine was 3.5 and it is still 3.2. The patient does have a Yeh catheter . He had CT chest, abdomen and pelvis done yesterday which did not really show any significant findi ng. PAST MEDICAL AND SURGICAL HISTORY: Includes hypertension, hyperlipidemia, history of traumatic subdu ral hematoma, chronic kidney disease stage III, baseline creatinine around 1.2, chronic anemia, mood disorder, BPH, status post surgery, prediabetes, dementia and currently a resident of dementia unit, bunion surgery, TURP, liver biopsy, tonsillectomy. FAMILY HISTORY: Negative for renal disease or dialysis. SOCIAL HISTORY: Nonsmoker, no alcohol. 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 ALLERGIES: List reviewed. MEDICATIONS: Home medication list was reviewed in detail and is as per the reconciliation list. REVIEW OF SYSTEMS: Unable to obtain secondary to dementia. PHYSICAL EXAMINATION: GENERAL: Elderly white male who is in an advanced dementia state. He does not appear to be in any r espiratory distress. He did open eyes on command and said few words. HEENT: Mucous membrane is dry. NECK: Supple. No jugular venous distention. VITAL SIGNS: Blood pressure is 115/73, pulse rate 76, temperature 36.3, 93% on 2 liters nasal cannul a. CHEST: Bilaterally clear to auscultation. CARDIOVASCULAR: S1 and S2, regular. EXTREMITIES: Show no edema. He does have a Yeh catheter. LABORATORY TEST: Sodium 164 on admission, most recent 161, creatinine is 3.24, BUN is 98. Lactate i s 3.4, magnesium is 3.2. Troponin is very elevated. Total CK was 6200 and now it is down to 1262. ASSESSMENT AND PLAN: An 87-year-old male with advanced dementia with recent urinary tract infection and a resident of dementia unit, now presented to the hospital because of worsening mental status. I have been consulted for, 1. Acute renal failure on background chronic kidney disease III. 2. Hypernatremia with a serum sodium of 164. The patient has acute renal failure with a current cre atinine of 3.2, which is significantly higher than his baseline of 1.2. His total CK was elevated an d he did have lactic acid elevation still consistent with some mild degree of rhabdomyolysis versus s epsis related. In any case, there is evidence of significant period of hypoperfusion of tissues, whi ch most likely was enough to cause some degree of ATN. I would continue with IV fluid for the time b eing, but change it to D5 water to provide free water. His blood pressure is reasonable at this time and I do not think we necessarily need to give him any type of saline. Would also be aware and watc hful of the urine output. Continue to monitor the input output accurately. Magnesium was elevated a nd does need to be serially checked and would check magnesium in the morning. Renal imaging already done and he does not have any hydronephrosis, so at this time the etiology of acute renal failure is either severe prerenal or severe prerenal failure with progression to ATN. Given his advanced dementi a and the wish as expressed by his daughter, there is no plan for dialysis if such need arises. Thank you very much for the consult. Job ID: [id number]
--- NOTE | 2023-01-13 02:12 | Communication Note ---
Date of Service: January 13, 2023 Episodic bradycardia as per RN. Heart rate dipping in the 30s. Patient asymptomatic. AP Asymptomatic bradycardia ? Aricept contributory Hold Aricept for now.
[2023-01-13] MEDS: DEXTROSE 5% 1,000 ML IV SCH ×3 (02:33→22:21)
[2023-01-13 02:44] LABS: Basophils # (auto) 0.04 K/uL (0-0.2); Basophils % (auto) 0.3 %; Eosinophils # (auto) 0.24 K/uL (0-0.50); Eosinophils % (auto) 1.5 %; Hematocrit (blood only) 32.8 % (42.0-52.0); Hemoglobin 10.3 g/dl (14.0-18.0); Immature Granulocytes # (auto) 0.12 K/uL (0.01-0.20); Immature Granulocytes % (auto) 0.8 %; Lymphocytes # (auto) 2.61 K/uL (1.2-3.4); Lymphocytes % (auto) 16.8 %; Mean Corpuscular Hemoglobin 32.3 pg (25.0-34.0); Mean Corpuscular Hgb Conc 31.4 g/dL (32.0-36.0); Mean Corpuscular Volume 102.8 fL (80.0-100.0); Mean Platelet Volume 10.5 fL (9.4-12.4); Monocytes # (auto) 0.64 K/uL (0.11-0.59); Monocytes % (auto) 4.1 %; Neutrophils # (auto) 11.84 K/uL (1.40-6.50); Neutrophils % (auto) 76.5 %; Nucleated RBC # (auto) 0.02 K/uL (0-0.12); Nucleated RBC % (auto) 0.1 %; Platelet Count 177 K/uL (130-400); RDW Coefficient of Variation 15.6 % (11.5-14.5); RDW Standard Deviation 57.8 fL (36.4-46.3); Red Blood Count 3.19 M/uL (4.70-6.10); White Blood Count 15.49 K/ul (4.8-10.8)
[2023-01-13 03:02] LABS: BUN Creatinine Ratio 29.9 (10-20); Calcium 8.6 mg/dl (8.6-10.3); Creatinine Clr Calc Pharmacy 19.2 ml/min; Est GFR (African American) 25.3 ml/min; Est GFR (Non-African American) 21.8 ml/min; Magnesium 2.8 mg/dl (1.7-2.4); Phosphorus 4.1 mg/dl (2.5-4.9); Potassium 3.4 mmol/L (3.5-5.1)
[2023-01-13] MEDS: ALBUMIN 25% 25 GM/100 ML VIAL IV SCH ×3 (04:01→21:21)
[2023-01-13] MEDS: POTASSIUM CHLORIDE / WTR 10 MEQ/100 ML PLCT IV SCH ×4 (04:01→07:06)
[2023-01-13] MEDS: HEPARIN SOD 5,000 UNIT/0.5 ML VIAL SQ SCH ×3 (06:00→22:22)
[2023-01-13] MEDS: PIPERACILLIN/TAZOBACTAM 4.5 GM in DEXTROSE 5% 100 ML IV SCH ×2 (08:23→21:21)
[2023-01-13 09:17] LABS: BUN Creatinine Ratio 29.6 (10-20); Calcium 8.7 mg/dl (8.6-10.3); Creatinine Clr Calc Pharmacy 20.9 ml/min; Est GFR (African American) 28.1 ml/min; Est GFR (Non-African American) 24.2 ml/min
[2023-01-13] MEDS: busPIRone 5 MG TAB PO SCH ×2 (11:17→22:22)
--- NOTE | 2023-01-13 14:44 | Hospitalist Progress Note ---
Date of Service January 13, 2023 Assessment & Plan (1) Encephalopathy: Plan: Acute metabolic encephalopathy Could have underlying delirium in setting of dementia, Hypernatremia, Uremia, Severe Sepsis --CT Head:No acute intracranial hemorrhage, midline shift, or mass effect. Reorient frequently Address any reversible causes Fall precautions Monitor Mental status seems to be improving, follows simple commands Discussed with patient's guardian Adeola Samuels on 01/13/23: No aggressive measures per family. Agrees with current management Severe sepsis Possible sources: Complicated UTI H/O BPH S/P Surgery CT chest, abdomen and pelvis showed no acute findings Blood, urine culture pending Continue Zosyn Continue IV fluids Sinus Bradycardia Not on any AV carrie blocking agents Not a candidate for pacemaker given comorbidities Monitor on telemetry Patient's family understands and agrees with no intervention /pacemaker placement Hypernatremia Likely due to dehydration/Poor oral intake Sodium 164>161>153 Monitor sodium levels closely Continue IV fluids Appreciate Nephrology Input MARITZA on CKD III Likely Multifactorial ATN/Prerenal/Rhabdo Cr:3.24>2.33 Avoid Nephrotoxic agents as able Monitor renal function Continue IV fluids Bladder scan as needed to monitor for any retention Renal function slowly improving Acute rhabdomyolysis Troponin elevation likely secondary to above EKG showed no signs of acute ischemia ECHO: No regional wall motion abnormality noted CK Level:[id number] Continue IV fluids Improving Other chronic conditions H/O Traumatic subdural hematoma Chronic anemia Prediabetes: HbA1C 5.9 from 2019 Dementia Mood disorder BPH S/p Surgery Continue home medications Hold home Lasix for now DVT Px: Heparin SQ Code Status DNI/DNR Admission and Anticipated Discharge Date Admission Date: January 11, 2023 Subjective Patient is seen and examined at bedside Poor historian secondary to dementia, Hearing impairment Renal function, sodium levels improving Discussed with patient's daughter over the phone Noted bradycardia on monitor No distress on exam Leukocytosis trending down Cultures pending Review of Systems Review of Systems: All systems reviewed & are unremarkable except as noted in Subjective Physical Exam Physical Exam: Physical Exam: Vitals signs as noted above General Appearance:Thin, Frail, Chronic ill appearing, elderly, no apparent distress Head: normocephalic, Atraumatic Eyes: normal inspection, EOMI Neck: supple, Trachea midline Respiratory/Chest: Normal breath sounds, CTA, No accessory muscle use Cardiovascular: S1, S2, Bradycardia, No murmur Abdomen/GI:Soft, Non tender, Bowel sounds present Extremities/Musculoskeletal:normal inspection,1+ edema Neurologic/Psych:grossly no focal neurological deficits, +Dementia, follows simple commmands Skin: normal color, warm Results & Data Results & Data Vital Signs (Past 12 Hours) Vital Signs Temp Pulse Resp BP BP Pulse Ox O2 Del Method 01/13/23 11:02 36.6 C 44 L 17 106/44 L 99 Nasal Cannula 01/13/23 08:00 Nasal Cannula 01/13/23 07:12 36.9 C 44 L 16 121/74 97 Nasal Cannula 01/13/23 03:04 36.8 C 56 L 17 112/66 97 Nasal Cannula O2 Flow Rate 01/13/23 11:02 3 01/13/23 08:00 3 01/13/23 07:12 3 01/13/23 03:04 4 Laboratory Results Short CBC 01/13/23 Range/Units 02:30 WBC 15.49 H (4.8-10.8) K/ul Hgb 10.3 L (14.0-18.0) g/dl Hct 32.8 L (42.0-52.0) % Plt Count 177 (130-400) K/uL BMP 01/12/23 01/13/23 01/13/23 21:28 02:30 08:40 Sodium 158 H* 156 H* 153 H Potassium 3.4 L D 4.0 Chloride 127 H 125 H Carbon Dioxide 19 L 21 BUN 76 H D 69 H Creatinine 2.54 H D 2.33 H Glucose 135 H 121 H Calcium 8.6 8.7 Cardiac Enzymes 01/13/23 Range/Units 02:30 Total Creatine Kinase 1074 H (30-223) U/L
[2023-01-13] MEDS: FINASTERIDE 5 MG TAB PO SCH (22:22)
[2023-01-13] MEDS: TAMSULOSIN HCL 0.4 MG CAP PO SCH (22:22)
[2023-01-14] MEDS ORDERED: ATROPINE SULFATE 0.1 MG/ML 10ML SYR IV PRN (03:54)
[2023-01-14] MEDS: ALBUMIN 25% 25 GM/100 ML VIAL IV SCH ×3 (04:18→20:37)
[2023-01-14] MEDS: HEPARIN SOD 5,000 UNIT/0.5 ML VIAL SQ SCH ×3 (06:22→22:25)
[2023-01-14 07:14] LABS: Hematocrit (blood only) 28.4 % (42.0-52.0); Mean Corpuscular Hgb Conc 31.7 g/dL (32.0-36.0); Mean Corpuscular Volume 101.1 fL (80.0-100.0); Mean Platelet Volume 10.7 fL (9.4-12.4); Platelet Count 179 K/uL (130-400); RDW Coefficient of Variation 15.2 % (11.5-14.5); RDW Standard Deviation 55.8 fL (36.4-46.3); Red Blood Count 2.81 M/uL (4.70-6.10); White Blood Count 9.93 K/ul (4.8-10.8)
[2023-01-14 07:52] LABS: Anion Gap 8 (3-11); BUN Creatinine Ratio 27.5 (10-20); Blood Urea Nitrogen 46 mg/dl (6-23); Calcium 8.5 mg/dl (8.6-10.3); Carbon Dioxide 18 mmol/L (21-32); Chloride 120 mmol/L (98-107); Creatine Kinase 1397 U/L (30-223); Creatinine Clr Calc Pharmacy 29.1 ml/min; Est GFR (Non-African American) 36.2 ml/min; Glucose 129 mg/dl (70-99(Fasting)); Sodium 146 mmol/L (136-145)
[2023-01-14] MEDS: busPIRone 5 MG TAB PO SCH ×2 (08:00→20:38)
[2023-01-14] MEDS: DEXTROSE 5% 1,000 ML IV SCH (08:13)
[2023-01-14] MEDS: PIPERACILLIN/TAZOBACTAM 4.5 GM in DEXTROSE 5% 100 ML IV SCH ×2 (08:58→20:37)
--- NOTE | 2023-01-14 09:08 | Nephrology Progress Note ---
Date of Service January 14, 2023 Assessment & Plan (1) Hypernatremia: (2) Altered mental status: (3) Encephalopathy: Admission and Anticipated Discharge Date Admission Date: January 11, 2023 Subjective Poor historian secondary to dementia, Hearing impairment Renal function, sodium levels improving Review of Systems Review of Systems: Appears comfortable Poor historian Results & Data Vital Signs (Past 12 Hours) Vital Signs Temp Pulse Pulse Resp BP Pulse Ox O2 Del Method 01/14/23 07:29 36.5 C 62 19 92/42 L 96 Nasal Cannula 01/14/23 03:35 36.8 C 46 L 14 134/65 46 L Nasal Cannula 01/13/23 23:00 56 L 01/13/23 23:42 36.7 C 73 18 112/57 L 98 Nasal Cannula O2 Flow Rate 01/14/23 07:29 3 01/14/23 03:35 4 01/13/23 23:00 01/13/23 23:42 3 Laboratory Results 01/14/23 06:52 01/14/23 08:11
[2023-01-14] MEDS: D5W AND 1/2NSS + 20MEQ KCL 20 MEQ/1,000 ML BAG IV SCH ×2 (09:25→18:07)
--- NOTE | 2023-01-14 09:48 | Nephrology Progress Note ---
Date of Service January 14, 2023 Assessment & Plan (1) MARITZA (acute kidney injury): Plan: 2/ hypoperfusion injury / Rhabdo/ Vs degree of sepsis - Likely ATN with a degree of ATN - Improved ( baseline 1.2) - Continue with Iv Fluids ( D5W -- For 1 more day and then convert to Isolyte p and 75 mls / hr) - (2) Hypernatremia: Plan: Improved from initial level of 164 -Continue with D5W at the current rate, as above (3) Altered mental status: (4) Encephalopathy: Admission and Anticipated Discharge Date Admission Date: January 11, 2023 Subjective Patinet has dementia Appears comfortable Review of Systems Review of Systems: Unobtainable due to cognitive status Physical Exam Physical Exam: GENERAL- Confused HEENT- dry mucous membrane NECK- No JVD CHEST- Bilateral clear CVS- S1-S2 Regular EXT- No EDEMA Results & Data Vital Signs (Past 12 Hours) Vital Signs Temp Pulse Pulse Resp BP Pulse Ox O2 Del Method 01/14/23 07:29 36.5 C 62 19 92/42 L 96 Nasal Cannula 01/14/23 03:35 36.8 C 46 L 14 134/65 46 L Nasal Cannula 01/13/23 23:00 56 L 01/13/23 23:42 36.7 C 73 18 112/57 L 98 Nasal Cannula O2 Flow Rate 01/14/23 07:29 3 01/14/23 03:35 4 01/13/23 23:00 01/13/23 23:42 3 Laboratory Results 01/14/23 06:52 01/14/23 08:11
--- NOTE | 2023-01-14 15:14 | Hospitalist Progress Note ---
Date of Service January 14, 2023 Assessment & Plan (1) Encephalopathy: Plan: Acute metabolic encephalopathy Could have underlying delirium in setting of dementia, Hypernatremia, Uremia, Severe Sepsis --CT Head:No acute intracranial hemorrhage, midline shift, or mass effect. Reorient frequently Address any reversible causes Fall precautions Monitor Discussed with patient's guardian Adeola Samuels on 01/13/23: No aggressive measures per family. Agrees with current management Mental status seem to be back to baseline. Severe sepsis Possible sources: Complicated UTI--Ruled out No clear source of infection H/O BPH S/P Surgery CT chest, abdomen and pelvis showed no acute findings Blood Cx: No growth to date Urine culture Negative Continue Zosyn for now Continue IV fluids per Nephrology Consider to discontinue antibiotics tomorrow if cultures remain negative Sinus Bradycardia Not on any AV carrie blocking agents Not a candidate for pacemaker given comorbidities Monitor on telemetry Patient's family understands and agrees with no intervention /pacemaker placement Hypernatremia Likely due to dehydration/Poor oral intake Sodium 164>161>153>146 Monitor sodium levels closely Continue IV fluids Appreciate Nephrology Input MARITZA on CKD III Likely Multifactorial ATN/Prerenal/Rhabdo Cr:3.24>2.33>1.6 Avoid Nephrotoxic agents as able Monitor renal function Continue IV fluids Bladder scan as needed to monitor for any retention Renal function slowly improving Acute rhabdomyolysis Troponin elevation likely secondary to above EKG showed no signs of acute ischemia ECHO: No regional wall motion abnormality noted CK Level:6201>1397 Continue IV fluids Improving Other chronic conditions H/O Traumatic subdural hematoma Chronic anemia Prediabetes: HbA1C 5.9 from 2019 Dementia Mood disorder BPH S/p Surgery Continue home medications Hold home Lasix for now DVT Px: Heparin SQ Code Status DNI/DNR Admission and Anticipated Discharge Date Admission Date: January 11, 2023 Subjective Patient is seen and examined at bedside Poor historian secondary to dementia, Hearing impairment Mental status seems to be back to baseline No issues overnight No distress on exam Renal function, sodium levels improving Blood pressure low today Leukocytosis tresolved Review of Systems Review of Systems: All systems reviewed & are unremarkable except as noted in Subjective Physical Exam Physical Exam: Physical Exam: Vitals signs as noted above General Appearance:Thin, Frail, Chronic ill appearing, elderly, no apparent distress Head: normocephalic, Atraumatic Eyes: normal inspection, EOMI Neck: supple, Trachea midline Respiratory/Chest: Normal breath sounds, CTA, No accessory muscle use Cardiovascular: S1, S2, Bradycardia, No murmur Abdomen/GI:Soft, Non tender, Bowel sounds present Extremities/Musculoskeletal:normal inspection,1+ edema Neurologic/Psych:grossly no focal neurological deficits, +Dementia, follows simple commmands Skin: normal color, warm Results & Data Results & Data Vital Signs (Past 12 Hours) Vital Signs Temp Pulse Resp BP BP Pulse Ox O2 Del Method 01/14/23 11:13 36.7 C 57 L 19 116/64 96 Nasal Cannula 01/14/23 07:29 36.5 C 62 19 92/42 L 96 Nasal Cannula 01/14/23 03:35 36.8 C 46 L 14 134/65 46 L Nasal Cannula O2 Flow Rate 01/14/23 11:13 3 01/14/23 07:29 3 01/14/23 03:35 4 Laboratory Results Short CBC 01/14/23 Range/Units 06:52 WBC 9.93 (4.8-10.8) K/ul Hgb 9.0 L (14.0-18.0) g/dl Hct 28.4 L (42.0-52.0) % Plt Count 179 (130-400) K/uL BMP 01/14/23 01/14/23 06:52 08:11 Sodium 146 H Potassium TNP 3.5 Chloride 120 H Carbon Dioxide 18 L BUN 46 H D Creatinine 1.67 H D Glucose 129 H Calcium 8.5 L Cardiac Enzymes 01/14/23 Range/Units 06:52 Total Creatine Kinase 1397 H (30-223) U/L
[2023-01-14] MEDS ORDERED: PIPERACILLIN/TAZOBACTAM 4.5 GM in DEXTROSE 5% 100 ML IV SCH (17:00)
[2023-01-14] MEDS: FINASTERIDE 5 MG TAB PO SCH (20:38)
[2023-01-14] MEDS: TAMSULOSIN HCL 0.4 MG CAP PO SCH (20:38)
[2023-01-15] MEDS: D5W AND 1/2NSS + 20MEQ KCL 20 MEQ/1,000 ML BAG IV SCH ×2 (02:04→10:31)
[2023-01-15] MEDS: ALBUMIN 25% 25 GM/100 ML VIAL IV SCH ×2 (03:10→11:50)
[2023-01-15] MEDS: PIPERACILLIN/TAZOBACTAM 4.5 GM in DEXTROSE 5% 100 ML IV SCH ×2 (04:44→13:40)
[2023-01-15] MEDS: HEPARIN SOD 5,000 UNIT/0.5 ML VIAL SQ SCH ×3 (05:49→21:57)
[2023-01-15 08:04] LABS: Hematocrit (blood only) 30.1 % (42.0-52.0); Hemoglobin 9.7 g/dl (14.0-18.0); Mean Corpuscular Hemoglobin 32.1 pg (25.0-34.0); Mean Corpuscular Hgb Conc 32.2 g/dL (32.0-36.0); Mean Corpuscular Volume 99.7 fL (80.0-100.0); Mean Platelet Volume 10.8 fL (9.4-12.4); Platelet Count 210 K/uL (130-400); RDW Coefficient of Variation 15.1 % (11.5-14.5); RDW Standard Deviation 53.7 fL (36.4-46.3); Red Blood Count 3.02 M/uL (4.70-6.10); White Blood Count 9.78 K/ul (4.8-10.8)
[2023-01-15 08:24] LABS: BUN Creatinine Ratio 23.3 (10-20); Calcium 8.5 mg/dl (8.6-10.3); Creatinine Clr Calc Pharmacy 36.6 ml/min; Est GFR (African American) 55.3 ml/min; Est GFR (Non-African American) 47.7 ml/min; Potassium 3.7 mmol/L (3.5-5.1)
[2023-01-15] MEDS: busPIRone 5 MG TAB PO SCH ×2 (09:20→21:57)
--- NOTE | 2023-01-15 13:25 | Nephrology Progress Note ---
Date of Service January 15, 2023 Assessment & Plan (1) MARITZA (acute kidney injury): Plan: resolving nearly Stage 2 MARITZA from ATN attributed to hypoperfusion injury Vs degree of sepsis; rhabdo less likely given CK trends past weeks; ongoing NAGMA noted of variable severity - Improved ( baseline 1.2) -stop albumin IV - Changed IVF to D5W w/ 40 K same rate (2) Hypernatremia: Plan: Improved from initial level of 164 -IVF as above (3) Encephalopathy: Admission and Anticipated Discharge Date Admission Date: January 11, 2023 Subjective no interval events clinically; per hospitalist MS improved today. denies sob, n/v, uncontrolled musculoskeletal or abdominal pain Review of Systems Review of Systems: All systems reviewed & are unremarkable except as noted in Subjective Physical Exam Constitutional: well developed and well nourished Eyes: EOM intact bilaterally ENMT: Ears: no external ear abnormality Nose: no external nose abnormality Mouth: + dry oral mucous membranes Neck: no nuchal rigidity Respiratory: normal respiratory effort (on 02NC); no cough Auscultation: + diminished lung sounds Cardiovascular: RRR, no murmur, no edema Gastrointestinal (Abdomen): Inspection/Auscultation: normal bowel sounds Percussion/Palpation: abdomen soft; abdomen nontender Musculoskeletal: Extremities: strength 5/5 throughout Skin: no rashes, warm and dry Neurologic: chavez, fluent speech, no tremor Psychiatric: Orientation: alert, oriented to person and cooperative Results & Data Vital Signs (Past 12 Hours) Vital Signs Temp Pulse Resp Pulse Ox O2 Del Method O2 Flow Rate 01/15/23 09:46 Nasal Cannula 3 01/15/23 08:09 93 Nasal Cannula 4 01/15/23 08:03 36.6 C 56 L 18 93 Nasal Cannula Laboratory Results 01/15/23 07:15 01/15/23 07:[address] a/p reviewed
[2023-01-15] MEDS: POTASSIUM CHLORIDE 40 MEQ in DEXTROSE 5% 1,000 ML IV SCH (16:22)
--- NOTE | 2023-01-15 17:37 | Hospitalist Progress Note ---
Date of Service January 15, 2023 Assessment & Plan (1) Encephalopathy: Plan: Acute metabolic encephalopathy Could have underlying delirium in setting of dementia, Hypernatremia, Uremia, Severe Sepsis --CT Head:No acute intracranial hemorrhage, midline shift, or mass effect. Reorient frequently Address any reversible causes Fall precautions Monitor Discussed with patient's guardian Adeola Samuels on 01/13/23: No aggressive measures per family. Agrees with current management Mental status seem to be back to baseline. No events overnight SIRS Suspected severe sepsis Possible sources: Complicated UTI--Ruled out No clear source of infection H/O BPH S/P Surgery CT chest, abdomen and pelvis showed no acute findings Blood Cx: No growth to date Urine culture Negative DC Zosyn Continue IV fluids per Nephrology Sinus Bradycardia Not on any AV carrie blocking agents Not a candidate for pacemaker given comorbidities Monitor on telemetry Patient's family understands and agrees with no intervention /pacemaker placement Hypernatremia Likely due to dehydration/Poor oral intake Sodium 164>161>153>145 Monitor sodium levels closely Continue IV fluids Appreciate Nephrology Input MARITZA on CKD III Likely Multifactorial ATN/Prerenal/Rhabdo Cr:3.24>2.33>1.6>1.3 Avoid Nephrotoxic agents as able Monitor renal function Continue IV fluids Bladder scan as needed to monitor for any retention Renal function slowly improving Acute rhabdomyolysis Troponin elevation likely secondary to above EKG showed no signs of acute ischemia ECHO: No regional wall motion abnormality noted CK Level:6201>[id number] Continue IV fluids Improving Other chronic conditions H/O Traumatic subdural hematoma Chronic anemia Prediabetes: HbA1C 5.9 from 2019 Dementia Mood disorder BPH S/p Surgery Continue home medications Hold home Lasix for now DVT Px: Heparin SQ Code Status DNI/DNR Admission and Anticipated Discharge Date Admission Date: January 11, 2023 Subjective Patient is seen and examined at bedside Poor historian secondary to dementia, Hearing impairment Pleasant during my encounter Offered no complaints Discussed with nephrology today Review of Systems Review of Systems: Other Physical Exam Physical Exam: Physical Exam: Vitals signs as noted above General Appearance:Thin, Frail, Chronic ill appearing, elderly, no apparent distress Head: normocephalic, Atraumatic Eyes: normal inspection, EOMI Neck: supple, Trachea midline Respiratory/Chest: Normal breath sounds, CTA, No accessory muscle use Cardiovascular: S1, S2, Bradycardia, No murmur Abdomen/GI:Soft, Non tender, Bowel sounds present Extremities/Musculoskeletal:normal inspection,1+ edema Neurologic/Psych: Oriented to person only, grossly no focal neurological deficits, +Dementia Skin: normal color, warm Results & Data Results & Data Vital Signs (Past 12 Hours) Vital Signs Temp Pulse Resp BP Pulse Ox O2 Del Method O2 Flow Rate 01/15/23 14:27 37.2 C 56 L 18 102/47 L 98 Room Air 01/15/23 09:46 Nasal Cannula 3 01/15/23 08:09 93 Nasal Cannula 4 01/15/23 08:03 36.6 C 56 L 18 93 Nasal Cannula Laboratory Results Short CBC 01/15/23 Range/Units 07:15 WBC 9.78 (4.8-10.8) K/ul Hgb 9.7 L (14.0-18.0) g/dl Hct 30.1 L (42.0-52.0) % Plt Count 210 (130-400) K/uL BMP 01/15/23 07:15 Sodium 145 Potassium 3.7 Chloride 120 H Carbon Dioxide 19 L BUN 31 H Creatinine 1.33 D Glucose 147 H Calcium 8.5 L Cardiac Enzymes 01/15/23 Range/Units 07:15 Total Creatine Kinase 760 H (30-223) U/L
[2023-01-15] MEDS: FINASTERIDE 5 MG TAB PO SCH (21:56)
[2023-01-15] MEDS: TAMSULOSIN HCL 0.4 MG CAP PO SCH (21:57)
[2023-01-16] MEDS: POTASSIUM CHLORIDE 40 MEQ in DEXTROSE 5% 1,000 ML IV SCH ×2 (05:06→17:03)
[2023-01-16] MEDS: HEPARIN SOD 5,000 UNIT/0.5 ML VIAL SQ SCH ×3 (05:07→22:36)
[2023-01-16] MEDS: busPIRone 5 MG TAB PO SCH ×2 (08:11→22:36)
[2023-01-16 08:50] LABS: Calcium 8.9 mg/dl (8.6-10.3); Creatinine Clr Calc Pharmacy 41.2 ml/min; Est GFR (African American) 63.9 ml/min; Est GFR (Non-African American) 55.2 ml/min; Potassium 4.2 mmol/L (3.5-5.1)
--- NOTE | 2023-01-16 15:58 | Hospitalist Progress Note ---
Date of Service January 16, 2023 Assessment & Plan (1) Encephalopathy: Plan: Acute metabolic encephalopathy Could have underlying delirium in setting of dementia, Hypernatremia, Uremia, Severe Sepsis --CT Head:No acute intracranial hemorrhage, midline shift, or mass effect. Reorient frequently Address any reversible causes Fall precautions Monitor Discussed with patient's guardian Adeola Samuels on 01/13/23: No aggressive measures per family. Agrees with current management Mental status seem to be back to baseline. Waiting for rehab placement SIRS Suspected severe sepsis Possible sources: Complicated UTI--Ruled out No clear source of infection H/O BPH S/P Surgery CT chest, abdomen and pelvis showed no acute findings Blood Cx: No growth to date Urine culture Negative DC Zosyn Continue IV fluids per Nephrology Sinus Bradycardia Not on any AV carrie blocking agents Not a candidate for pacemaker given comorbidities Monitor on telemetry Patient's family understands and agrees with no intervention /pacemaker placement Hypernatremia Likely due to dehydration/Poor oral intake Sodium 164>161>153>145>143 Monitor sodium levels closely Continue IV fluids Appreciate Nephrology Input MARITZA on CKD III Likely Multifactorial ATN/Prerenal/Rhabdo Cr:3.24>2.33>1.6>1.3>1.1 Avoid Nephrotoxic agents as able Monitor renal function Continue IV fluids Bladder scan as needed to monitor for any retention Renal function slowly improving Acute rhabdomyolysis Troponin elevation likely secondary to above EKG showed no signs of acute ischemia ECHO: No regional wall motion abnormality noted CK Level:6201>[id number] Improved Other chronic conditions H/O Traumatic subdural hematoma Chronic anemia Prediabetes: HbA1C 5.9 from 2019 Dementia Mood disorder BPH S/p Surgery Continue home medications Resume home Lasix as able DVT Px: Heparin SQ Code Status DNI/DNR Disposition SNF when accepted Admission and Anticipated Discharge Date Admission Date: January 11, 2023 Subjective Patient is seen and examined at bedside Poor historian secondary to dementia, Hearing impairment No new complaint Discussed with nephrology today Renal function, sodium levels much improved Waiting for placement Review of Systems Review of Systems: Other Physical Exam Physical Exam: Physical Exam: Vitals signs as noted above General Appearance:Thin, Frail, Chronic ill appearing, elderly, no apparent distress Head: normocephalic, Atraumatic Eyes: normal inspection, EOMI Neck: supple, Trachea midline Respiratory/Chest: Normal breath sounds, CTA, No accessory muscle use Cardiovascular: S1, S2, Bradycardia, No murmur Abdomen/GI:Soft, Non tender, Bowel sounds present Extremities/Musculoskeletal:normal inspection,1+ edema Neurologic/Psych: Oriented to person only, grossly no focal neurological deficits, +Dementia Skin: normal color, warm Results & Data Results & Data Vital Signs (Past 12 Hours) Vital Signs Temp Pulse Resp BP Pulse Ox O2 Del Method O2 Flow Rate 01/16/23 15:05 36.7 C 56 L 16 121/68 98 Room Air 01/16/23 07:54 Nasal Cannula 3 01/16/23 07:31 36.8 C 60 18 113/53 L 97 Nasal Cannula 3 Laboratory Results BMP 01/16/23 07:20 Sodium 143 Potassium 4.2 Chloride 117 H Carbon Dioxide 19 L BUN 26 H Creatinine 1.18 Glucose 112 H Calcium 8.9
--- NOTE | 2023-01-16 17:42 | Nephrology Progress Note ---
Date of Service January 16, 2023 Assessment & Plan (1) MARITZA (acute kidney injury): Plan: resolving nearly Stage 2 MARITZA from ATN attributed to hypoperfusion injury Vs degree of sepsis; rhabdo less likely given CK trends past weeks; ongoing NAGMA noted of variable severity - Improved/resolved (creatinine baseline 1.2) - Changed IVF to D5W w/ 40 K same rate -hold off for now on sodium bicarb therapy or po K Nephro d/c recommendations (as of 01/16/23) -needs fed at his facility -facility to check bmp weekly x 2 after d/c -encourage fluid intake with goal of at least 40 oz daily -nephro f/u prn at d/c Care d/w Dr Easley (2) Hypernatremia: Plan: Improved from initial level of 164 -IVF as above (3) Encephalopathy: Admission and Anticipated Discharge Date Admission Date: January 11, 2023 Subjective seen on rounds midday; alert, interactive; no complaints today; a bit more confused Review of Systems Review of Systems: Unobtainable due to cognitive status Physical Exam Constitutional: well developed and well nourished Eyes: EOM intact bilaterally ENMT: Ears: no external ear abnormality Nose: no external nose abnormality Mouth: + dry oral mucous membranes Neck: no nuchal rigidity Respiratory: normal respiratory effort (on 02NC); no cough Auscultation: + diminished lung sounds Cardiovascular: Rate/Rhythm: regular rhythm and + bradycardic Extremities: no edema Gastrointestinal (Abdomen): Inspection/Auscultation: normal bowel sounds Percussion/Palpation: abdomen soft; abdomen nontender Musculoskeletal: Extremities: strength 5/5 throughout Skin: no rashes, warm and dry Neurologic: speech makes less sense today Psychiatric: Orientation: alert, oriented to person and cooperative Results & Data Vital Signs (Past 12 Hours) Vital Signs Temp Pulse Resp BP Pulse Ox O2 Del Method O2 Flow Rate 01/16/23 15:05 36.7 C 56 L 16 121/68 98 Room Air 01/16/23 07:54 Nasal Cannula 3 01/16/23 07:31 36.8 C 60 18 113/53 L 97 Nasal Cannula 3 Laboratory Results 01/15/23 07:15 01/16/23 07:20
[2023-01-16] MEDS: TAMSULOSIN HCL 0.4 MG CAP PO SCH (22:36)
[2023-01-16] MEDS: FINASTERIDE 5 MG TAB PO SCH (22:36)
[2023-01-17] MEDS: POTASSIUM CHLORIDE 40 MEQ in DEXTROSE 5% 1,000 ML IV SCH ×2 (05:55→19:48)
[2023-01-17] MEDS: HEPARIN SOD 5,000 UNIT/0.5 ML VIAL SQ SCH ×3 (05:57→20:42)
[2023-01-17] MEDS: busPIRone 5 MG TAB PO SCH ×2 (08:43→20:42)
[2023-01-17 09:41] LABS: Hematocrit (blood only) 31.1 % (42.0-52.0); Hemoglobin 10.4 g/dl (14.0-18.0)
[2023-01-17 10:06] LABS: BUN Creatinine Ratio 21.2 (10-20); Calcium 8.9 mg/dl (8.6-10.3); Creatinine Clr Calc Pharmacy 46.8 ml/min; Est GFR (African American) 74.5 ml/min; Est GFR (Non-African American) 64.3 ml/min; Potassium 4.6 mmol/L (3.5-5.1)
--- NOTE | 2023-01-17 10:47 | Hospitalist Progress Note ---
Date of Service January 17, 2023 Assessment & Plan (1) Encephalopathy: Plan: Acute metabolic encephalopathy Could have underlying delirium in setting of dementia, Hypernatremia, Uremia, Severe Sepsis --CT Head:No acute intracranial hemorrhage, midline shift, or mass effect. Reorient frequently Address any reversible causes Discussed with patient's guardian Adeola Samuels on 01/13/23: No aggressive measures per family. Agrees with current management Mental status seem to be back to baseline. Remains pleasantly confused but not in any acute delirium Medically stable to be transferred to [facility] today SIRS Suspected severe sepsis has been ruled out Possible sources: Complicated UTI--Ruled out No clear source of infection H/O BPH S/P Surgery CT chest, abdomen and pelvis showed no acute findings Blood Cx: No growth to date Urine culture Negative DC Zosyn No evidence of infection Sinus Bradycardia Not on any AV crarie blocking agents Not a candidate for pacemaker given comorbidities Monitor on telemetry Patient's family understands and agrees with no intervention /pacemaker placement Remains asymptomatic without any more bradycardia Hypernatremia Likely due to dehydration/Poor oral intake Sodium 164>161>153>145>143 Monitor sodium levels closely Continue IV fluids Appreciate Nephrology Input Sodium level has been normalized at 139 as of 01/17/2023 MARITZA on CKD III Likely Multifactorial ATN/Prerenal/Rhabdo Cr:3.24>2.33>1.6>1.3>1.1 Avoid Nephrotoxic agents as able Monitor renal function Has been receiving IV fluid Bladder scan as needed to monitor for any retention Renal function has been normalized with creatinine of 1.04 as of 01/17/2023 Acute rhabdomyolysis Troponin elevation likely secondary to above EKG showed no signs of acute ischemia ECHO: No regional wall motion abnormality noted CK Level:6201>1397>760 Improved Other chronic conditions H/O Traumatic subdural hematoma Chronic anemia Prediabetes: HbA1C 5.9 from 2019 Dementia Mood disorder BPH S/p Surgery Continue home medications Resume home Lasix as able DVT Px: Heparin SQ Code Status DNI/DNR Disposition SNF when accepted Has been accepted to [facility] and will be transferred this afternoon Admission and Anticipated Discharge Date Admission Date: January 11, 2023 Subjective 01/17/2023 The patient was seen and examined in medical floor He remains pleasantly confused but without any acute distress Denies any significant symptoms Review of Systems Review of Systems: Unobtainable due to cognitive status Physical Exam Physical Exam: Lying in bed comfortably Constitutional: well developed, well nourished and + ill appearing Eyes: PERRL, conjunctivae normal, anicteric sclerae ENMT: external ear and nose normal, oropharynx normal Neck: trachea midline, no thyromegaly Respiratory: no respiratory distress Auscultation: lungs clear to auscultation bilaterally Cardiovascular: Rate/Rhythm: regular rate and regular rhythm; not tachycardic Heart Sounds: normal S1 and normal S2; no murmur Extremities: no edema Gastrointestinal (Abdomen): Inspection/Auscultation: normal bowel sounds; abdomen not distended Percussion/Palpation: abdomen soft; abdomen nontender Musculoskeletal: No acute arthritis involving any joint Neurologic: Alert and awake. Pleasantly confused. Moving all limbs. Pain generally weak Lymphatic: no cervical or axillary lymphadenopathy Results & Data Results & Data Vital Signs (Past 12 Hours) Vital Signs Temp Pulse Resp BP Pulse Ox O2 Del Method O2 Flow Rate 01/17/23 07:45 Nasal Cannula 3 01/17/23 07:45 36.6 C 73 18 122/65 95 Nasal Cannula 3 Laboratory Results Short CBC 01/17/23 Range/Units 09:16 Hgb 10.4 L (14.0-18.0) g/dl Hct 31.1 L (42.0-52.0) % BMP 01/17/23 09:16 Sodium 139 Potassium 4.6 Chloride 115 H Carbon Dioxide 18 L BUN 22 Creatinine 1.04 Glucose 139 H Calcium 8.9 Medications Administered Current Inpatient Medications Acetaminophen (Acetaminophen 325 Mg Tab) 650 mg PO Q4H PRN PRN Reason: GENERALIZED DISCOMFORT Stop: 02/11/23 00:50 Atropine Sulfate (Atropine Sulfate 0.1 Mg/Ml 10ml Syr) 1 mg IV Q3M PRN PRN Reason: symptomatic bradycardia Stop: 02/13/23 03:53 Buspirone HCl (Buspirone 5 Mg Tab) 5 mg PO BID AFTAB Stop: 02/11/23 20:59 Last Admin: 01/17/23 08:43 Dose: 5 mg Donepezil HCl (Donepezil Hcl 5 Mg Tab) 5 mg PO HS AFTAB Stop: 02/11/23 20:59 Last Admin: 01/12/23 20:55 Dose: 5 mg Finasteride (Finasteride 5 Mg Tab) 5 mg PO HS AFTAB Stop: 02/11/23 20:59 Last Admin: 01/16/23 22:36 Dose: 5 mg Heparin Sodium (Porcine) (Heparin Sod 5,000 Unit/0.5 Ml Vial) 5,000 units SQ Q8 AFTAB Stop: 02/11/23 05:59 Last Admin: 01/17/23 05:57 Dose: 5,000 units Promethazine HCl 6.25 mg/ (Sodium Chloride) 50.25 mls @ 201 mls/hr IV Q6H PRN PRN Reason: Nausea And Vomiting Stop: 02/11/23 00:50 Potassium Chloride 40 meq/ (Dextrose) 1,020 mls @ 80 mls/hr IV .[id number] [facility] Stop: 02/14/23 13:29 Last Admin: 01/17/23 05:55 Dose: 80 mls/hr Tamsulosin HCl (Tamsulosin Hcl 0.4 Mg Cap) 0.4 mg PO QPM AFTAB Stop: 02/11/23 20:59 Last Admin: 01/16/23 22:36 Dose: 0.4 mg
--- NOTE | 2023-01-17 11:19 | XRay Report ---
XR chest 1V portable HISTORY: 87 years-old Male r/o chf acute shortness of breath COMPARISON: 01/11/2023 TECHNIQUE: AP view the chest FINDINGS: Cardiac silhouette is enlarged. Emphysema without overt pulmonary edema. Mild bibasilar consolidative opacities are similar to mildly progressed. Degenerative changes of the shoulders and spine. IMPRESSION: 1. Cardiomegaly without overt pulmonary edema. 2. Emphysema with mildly progressed bibasilar opacities suggestive of atelectasis versus pneumonia. ACT 112: Negative or not required by law. The above report was generated using voice recognition software. It may contain grammatical, syntax o r spelling errors. Electronically signed by: Roe Meza M.D. 01/17/2023 11:18 AM
--- NOTE | 2023-01-17 20:24 | Nephrology Progress Note ---
Date of Service January 17, 2023 Assessment & Plan (1) MARITZA (acute kidney injury): Plan: resolving nearly Stage 2 MARITZA from ATN attributed to hypoperfusion injury Vs degree of sepsis; rhabdo less likely given CK trends past weeks; ongoing NAGMA noted of variable severity - Improved/resolved (creatinine baseline 1.2) - Changed IVF to D5W w/ 40 K same rate -hold off for now on sodium bicarb therapy or po K Nephro d/c recommendations (as of 01/17/23) -needs fed at his facility -facility to check bmp weekly x 2 after d/c -encourage fluid intake with goal of at least 40 oz daily -nephro f/u prn at d/c >>>>>given that he's staying will start sodium bicarbonate po 1300 mg bid to try to correct NAGMA > this can be stopped if bicarb reaches 22 (2) Hypernatremia: Plan: Improved from initial level of 164 -IVF as above (3) Encephalopathy: Admission and Anticipated Discharge Date Admission Date: January 11, 2023 Subjective d/c for today cancelled; pt seen on PM rounds being fed supper. no c/o. Review of Systems Review of Systems: All systems reviewed & are unremarkable except as noted in Subjective Physical Exam Constitutional: well developed and well nourished Eyes: EOM intact bilaterally ENMT: Ears: no external ear abnormality Nose: no external nose abnormality Mouth: + dry oral mucous membranes Neck: no nuchal rigidity Respiratory: normal respiratory effort (on RA); no cough Auscultation: + diminished lung sounds Cardiovascular: RRR, no murmur, no edema Rate/Rhythm: regular rhythm and + bradycardic Extremities: no edema Gastrointestinal (Abdomen): Inspection/Auscultation: normal bowel sounds Percussion/Palpation: abdomen soft; abdomen nontender Musculoskeletal: Extremities: strength 5/5 throughout Skin: no rashes, warm and dry Psychiatric: Orientation: alert, oriented to person and cooperative Results & Data Vital Signs (Past 12 Hours) Vital Signs Temp Pulse Resp BP Pulse Ox O2 Del Method O2 Flow Rate 01/17/23 07:45 Nasal Cannula 3 01/17/23 07:45 36.6 C 73 18 122/65 95 Nasal Cannula 3 Laboratory Results 01/17/23 09:16 01/17/23 09:16
[2023-01-17] MEDS: TAMSULOSIN HCL 0.4 MG CAP PO SCH (20:42)
[2023-01-17] MEDS: FINASTERIDE 5 MG TAB PO SCH (20:42)
[2023-01-17] MEDS: SODIUM BICARBONATE 650 MG TAB PO SCH (20:51)
[2023-01-18] MEDS: HEPARIN SOD 5,000 UNIT/0.5 ML VIAL SQ SCH ×2 (06:11→13:16)
[2023-01-18] MEDS: busPIRone 5 MG TAB PO SCH (08:15)
[2023-01-18] MEDS: SODIUM BICARBONATE 650 MG TAB PO SCH (08:15)
[2023-01-18] MEDS: POTASSIUM CHLORIDE 40 MEQ in DEXTROSE 5% 1,000 ML IV SCH (08:21)
[2023-01-18 09:12] LABS: Calcium 9.3 mg/dl (8.6-10.3); Potassium 4.5 mmol/L (3.5-5.1)
[2023-01-18 09:18] LABS: BUN Creatinine Ratio 25.5 (10-20); Creatinine Clr Calc Pharmacy 49.6 ml/min
--- NOTE | 2023-01-18 09:39 | Nephrology Progress Note ---
Date of Service January 18, 2023 Assessment & Plan (1) MARITZA (acute kidney injury): Plan: resolving nearly Stage 2 MARITZA from ATN attributed to hypoperfusion injury Vs degree of sepsis; rhabdo less likely given CK trends past weeks; ongoing NAGMA noted of variable severity. Nnon anion gap metabolic acidosis emerged wk of 01/15 > improving w/ po bicarb and adjusting IVF - Improved/resolved MARITZA (creatinine baseline 1.2) on 01/18 I: -stopped 80 ml hourly D5W w/ 40 K -lowered Na bic to 650 mg bid Nephro d/c recommendations (as of 01/18/23) -needs fed at his facility -facility to check bmp weekly x 4 after d/c -encourage fluid intake with goal of at least 40 oz daily -resume potassium but not lasix at discharge and reeval need for K after 3-4 weeks -for now d/c on 650 mg bid sodium bicarbonate for 2 weeks then stop -nephro f/u prn at d/c Care coordinated with discharging team. (2) Hypernatremia: Plan: Improved from initial level of 164 -IVF as above (3) Encephalopathy: Admission and Anticipated Discharge Date Admission Date: January 11, 2023 Subjective no interval events. pt denies pain or sob. ROS limited by baseline MS. for d/c today. Review of Systems Review of Systems: All systems reviewed & are unremarkable except as noted in Subjective Physical Exam Constitutional: well developed and well nourished Eyes: EOM intact bilaterally ENMT: Ears: no external ear abnormality Nose: no external nose abnormality Mouth: + dry oral mucous membranes Neck: no nuchal rigidity Respiratory: normal respiratory effort (on RA); no cough Auscultation: + diminished lung sounds Cardiovascular: RRR, no murmur, no edema Gastrointestinal (Abdomen): Inspection/Auscultation: normal bowel sounds Percussion/Palpation: abdomen soft; abdomen nontender Musculoskeletal: Extremities: strength 5/5 throughout Skin: no rashes, warm and dry Neurologic: psychomotor slowing as previously, fluent but limited speech; chavez Psychiatric: Orientation: alert, oriented to person and cooperative Results & Data Vital Signs (Past 12 Hours) Vital Signs Temp Pulse Resp BP Pulse Ox O2 Del Method 01/18/23 07:45 Room Air 01/18/23 07:30 36.7 C 80 18 146/74 H 94 Room Air 01/17/23 22:14 36.9 C 69 18 136/70 96 Room Air Laboratory Results 01/17/23 09:16 01/18/23 07:50
[2023-01-18] MEDS ORDERED: cephALEXin 500 MG CAP PO SCH (11:00)
--- NOTE | 2023-01-18 13:10 | Discharge Summary ---
Date of Service January 18, 2023 Admission HPI Per Admitting Provider History obtained from patient, family, and records. Limited history from patient secondary to dementia. Medical history significant for hypertension, hyperlipidemia, history traumatic subdural hematoma, CRI (baseline creatinine 1.2-1.3 ), chronic anemia (baseline hemoglobin 11), mood disorder, BPH status post surgery, prediabetes, dementia. Last confinement [facility] October 2021 for traumatic subdural hematoma causing brain compression. No surgical intervention. Patient initially discharged to [facility]. Patient eventually discharge to [facility] (dementia unit) last March 2022. Patient started on Augmentin course 2 weeks ago by dementia unit provider for Proteus UTI. Outpatient lab work 2 weeks ago showed serum sodium of 152 and creatinine of 1.8. Patient initially well but noted to be in lethargic today. Patient refusing to walk. Patient brought to the ER for evaluation. IV cefepime administered at the ER. 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 Admission Exam Per Admitting Provider GENERAL: Demented, uncomfortable, tremulous, no respiratory distress SKIN: Pallor, warm HEENT: Pale palpebral conjunctivae, no ptosis, dry buccal mucosa NECK : Supple, no tenderness CHEST : CTA, no tenderness HEART : RRR, no obvious murmurs ABDOMEN: Some distention, nontender EXTREMITIES : No LE swelling/tenderness, no other conspicuous deformities noted NEUROLOGIC : Demented, no facial asymmetry, tremulous, gait and stance not assessed Principal Diagnosis Metabolic encephalopathy MARITZA on CKD stage III Hyponatremia Rhabdomyolysis Discharge Exam Constitutional WD/WN, vitals as above ENMT external ear and nose normal, oropharynx normal Respiratory normal respiratory effort; no respiratory distress Auscultation: + diminished lung sounds Cardiovascular Rate/Rhythm: regular rate and regular rhythm Vessels: normal peripheral pulses Extremities: + edema (Trace edema BLE) Gastrointestinal (Abdomen) normal bowel sounds, soft, nontender, no hepatosplenomegaly Skin Right forearm erythematous with a few small open wounds in the antecubital space Psychiatric Sleeping but arouses to verbal stimuli, alert to self, underlying dementia Discharge Data Allergies Allergy/AdvReac Type Severity Reaction Status Date / Time cephalexin Allergy Unknown ON [facility] Verified 01/11/23 21:15 [facility] sulfamethoxazole Allergy Unknown ON [facility] Verified 01/11/23 21:15 [From Bactrim] [facility] trimethoprim [From Bactrim] Allergy Unknown ON [facility] Verified 01/11/23 21:15 [facility] Consultations 01/12/23 08:36 Consult Nephrology Routine Ordered Studies Laboratory Results WBC 9.78 K/ul (4.8-10.8) 01/15/23 07:15 RBC 3.02 M/uL (4.70-6.10) L 01/15/23 07:15 Hgb 10.4 g/dl (14.0-18.0) L 01/17/23 09:16 Hct 31.1 % (42.0-52.0) L 01/17/23 09:16 MCV 99.7 fL (80.0-100.0) 01/15/23 07:15 MCH 32.1 pg (25.0-34.0) 01/15/23 07:15 MCHC 32.2 g/dL (32.0-36.0) 01/15/23 07:15 RDW Std Deviation 53.7 fL (36.4-46.3) H 01/15/23 07:15 RDW Coeff of Norberto 15.1 % (11.5-14.5) H 01/15/23 07:15 Plt Count 210 K/uL (130-400) 01/15/23 07:15 MPV 10.8 fL (9.4-12.4) 01/15/23 07:15 Immature Gran % (Auto) 0.8 % 01/13/23 02:30 Neut % (Auto) 76.5 % 01/13/23 02:30 Lymph % (Auto) 16.8 % 01/13/23 02:30 [place] % (Auto) 4.1 % 01/13/23 02:30 Eos % (Auto) 1.5 % 01/13/23 02:30 Baso % (Auto) 0.3 % 01/13/23 02:30 Neut # (Auto) 11.84 K/uL (1.40-6.50) H 01/13/23 02:30 Lymph # (Auto) 2.61 K/uL (1.2-3.4) 01/13/23 02:30 [place] # (Auto) 0.64 K/uL (0.11-0.59) H 01/13/23 02:30 Eos # (Auto) 0.24 K/uL (0-0.50) 01/13/23 02:30 Baso # (Auto) 0.04 K/uL (0-0.2) 01/13/23 02:30 Immature Gran # (Auto) 0.12 K/uL (0.01-0.20) 01/13/23 02:30 Absolute Nucleated RBC 0.02 K/uL (0-0.12) 01/13/23 02:30 Nucleated RBC % (auto) 0.1 % 01/13/23 02:30 VBG pH 7.32 (7.36-7.41) L 01/12/23 07:10 VBG pCO2 41 mmHg (38-50) 01/12/23 07:10 VBG pO2 21 mmHg 01/12/23 07:10 VBG HCO3 21 mmol/L 01/12/23 07:10 VBG O2 Saturation < 60.0 % 01/12/23 07:10 VBG Base Excess -4.8 mEq/L 01/12/23 07:10 Sodium 139 mmol/L (136-145) 01/18/23 07:50 Potassium 4.5 mmol/L (3.5-5.1) 01/18/23 07:50 Chloride 113 mmol/L (98-107) H 01/18/23 07:50 Carbon Dioxide 21 mmol/L (21-32) 01/18/23 07:50 Anion Gap 5 (3-11) 01/18/23 07:50 BUN 25 mg/dl (6-23) H 01/18/23 07:50 Creatinine 0.98 mg/dl (0.6-1.4) 01/18/23 07:50 Est Cr Clr Drug Dosing 49.6 ml/min 01/18/23 07:50 Est GFR ( Amer) 80.0 ml/min 01/18/23 07:50 Est GFR (Non-Af Amer) 69.0 ml/min 01/18/23 07:50 BUN/Creatinine Ratio 25.5 (10-20) H 01/18/23 07:50 Glucose 123 mg/dl (70-99(Fasting)) H 01/18/23 07:50 Estimat Average Glucose 146 mg/dl 01/11/23 19:22 Hemoglobin A1c 6.7 % (4.5-5.6) H 01/11/23 19:22 Lactate 2.0 mmol/L (0.4-2.0) 01/13/23 02:30 Calcium 9.3 mg/dl (8.6-10.3) 01/18/23 07:50 Phosphorus 4.1 mg/dl (2.5-4.9) 01/13/23 02:30 Magnesium 2.8 mg/dl (1.7-2.4) H 01/13/23 02:30 Total Bilirubin 0.8 mg/dl (0.2-1.0) 01/11/23 19:22 Direct Bilirubin 0.2 mg/dl (0-0.2) 01/11/23 19:22 AST 48 U/L (13-39) H 01/11/23 19:22 ALT 52 U/L (7-52) 01/11/23 19:22 Alkaline Phosphatase 107 U/L (34-104) H 01/11/23 19:22 Total Creatine Kinase 760 U/L (30-223) H 01/15/23 07:15 Troponin I High Sens 1039.1 pg/ml (0-20) H* 01/12/23 07:10 Total Protein 8.7 gm/dl (6.0-8.3) H 01/11/23 19:22 Albumin 3.9 gm/dl (3.4-5.0) 01/11/23 19:22 Procalcitonin 0.22 ng/ml (0-0.5) 01/11/23 19:22 TSH 2.825 uIu/ml (0.300-4.500) 01/13/23 02:30 Urine Color Red 01/11/23 22:57 Urine Appearance Turbid (Clear) A 01/11/23 22:57 Urine pH 5.5 (4.5-7.5) 01/11/23 22:57 Ur Specific [place] 1.017 (1.000-1.030) 01/11/23 22:57 Urine Protein 2+ (Negative) H 01/11/23 22:57 Urine Glucose (UA) Trace (Negative) H 01/11/23 22:57 Urine Ketones Negative (Negative) 01/11/23 22:57 Urine Blood 3+ (Negative) H 01/11/23 22:57 Urine Nitrite Negative (Negative) 01/11/23 22:57 Urine Bilirubin Negative (Negative) 01/11/23 22:57 Urine Urobilinogen Negative (Negative) 01/11/23 22:57 Ur Leukocyte Esterase 3+ (Negative) H 01/11/23 22:57 Urine WBC (Auto) >30 /hpf (0-5) H 01/11/23 22:57 Urine RBC (Auto) >30 /hpf (0-4) H 01/11/23 22:57 U Hyaline Cast (Auto) 1-5 /lpf (0-5) 01/11/23 22:57 U Epithel Cells (Auto) 5-10 /lpf (0-5) H 01/11/23 22:57 Urine Bacteria (Auto) Negative (Negative) 01/11/23 22:57 Urine Yeast Not Reportable 01/11/23 22:57 Nasal Screen MRSA (PCR) Negative (Negative) 01/12/23 Unknown SARS-CoV-2, RNA, NAAT NEGATIVE (NEGATIVE) 01/17/23 11:[address] 01/11/23 18:43 Exam(s): CT HEAD Without Contrast EXAM: CT Head Without Intravenous Contrast CLINICAL HISTORY: Reason for exam: ams. TECHNIQUE: Axial computed tomography images of the head/brain without intravenous contrast. Automated exposure control was utilized for the study. A dose lowering technique was utilized adhering to the principles of ALARA. COMPARISON: No relevant prior studies available. FINDINGS: No acute intracranial hemorrhage. No midline shift or mass effect. The territorial perla-white matter differentiation is maintained throughout. Age-related cerebral volume loss. Periventricular and subcortical white matter hypoattenuation, consistent with chronic microangiopathy. The visualized orbits appear grossly unremarkable. The calvarium is intact. The visualized paranasal sinuses and mastoid air cells are grossly clear. IMPRESSION: No acute intracranial hemorrhage, midline shift, or mass effect. Electronically signed by: Hermilo Osei MD 01/11/23 19:52 PM Abdomen/Pelvis CT 01/11/23 20:52 Exam(s): CT ABDOMEN + PELVIS Without Contrast EXAM: CT Abdomen and Pelvis Without Intravenous Contrast CLINICAL HISTORY: Reason for exam: acute kidney injury. TECHNIQUE: Axial computed tomography images of the abdomen and pelvis without intravenous contrast. Automated exposure control was utilized for the study. A dose lowering technique was utilized adhering to the principles of ALARA. COMPARISON: No relevant prior studies available. FINDINGS: Lung bases: Unremarkable. No mass. No consolidation. ABDOMEN: Liver: Unremarkable. Gallbladder and bile ducts: Unremarkable. No calcified stones. No ductal dilation. Pancreas: Unremarkable. No ductal dilation. Spleen: Unremarkable. No splenomegaly. Adrenals: Unremarkable. No mass. Kidneys and ureters: Bilateral renal cysts. No obstructing stones. No hydronephrosis. Stomach and bowel: Diverticulosis, without acute diverticulitis. No small bowel obstruction. No free intraperitoneal air. PELVIS: Appendix: Normal appendix. Bladder: Unremarkable. No stones. Reproductive: Unremarkable as visualized. ABDOMEN and PELVIS: Intraperitoneal space: Unremarkable. No free air. No significant fluid collection. Bones/joints: Degenerative changes of the spine. No acute fracture. No dislocation. Soft tissues: Unremarkable. Vasculature: Atherosclerotic changes of the aorta. No abdominal aortic aneurysm. Lymph nodes: Unremarkable. No enlarged lymph nodes. IMPRESSION: No acute findings in the abdomen or pelvis. Electronically signed by: Hermilo Osei MD 01/11/23 21:[address] 01/11/23 20:52 Exam(s): CT CHEST Without Contrast EXAM: CT Chest Without Intravenous Contrast CLINICAL HISTORY: Reason for exam: hypoxia. TECHNIQUE: Axial computed tomography images of the chest without intravenous contrast. Automated exposure control was utilized for the study. A dose lowering technique was utilized adhering to the principles of ALARA. COMPARISON: No relevant prior studies available. FINDINGS: Lungs: Emphysema. Pleural space: Unremarkable. No pneumothorax. No significant effusion. Heart: Cardiomegaly. No significant pericardial effusion. No significant coronary artery calcifications. Bones/joints: Degenerative changes of the spine. No acute fracture. No dislocation. Soft tissues: Unremarkable. Vasculature: Atherosclerotic changes of the aorta. No thoracic aortic aneurysm. Lymph nodes: Unremarkable. No enlarged lymph nodes. IMPRESSION: No acute findings in the chest. Electronically signed by: Hermilo Osei MD 01/11/23 21:39 PM Chest X-Ray 01/17/23 10:51 XR chest 1V portable HISTORY: 87 years-old Male r/o chf acute shortness of breath COMPARISON: 01/11/2023 TECHNIQUE: AP view the chest FINDINGS: Cardiac silhouette is enlarged. Emphysema without overt pulmonary edema. Mild bibasilar consolidative opacities are similar to mildly progressed. Degenerative changes of the shoulders and spine. IMPRESSION: 1. Cardiomegaly without overt pulmonary edema. 2. Emphysema with mildly progressed bibasilar opacities suggestive of atelectasis versus pneumonia. ACT 112: Negative or not required by law. The above report was generated using voice recognition software. It may contain grammatical, syntax or spelling errors. Electronically signed by: Roe Meza M.D. 01/17/2023 11:18 AM Hospital Course (1) Encephalopathy: Acute metabolic encephalopathy Patient presented with confusion and lethargy Head CT on admission negative for acute intracranial findings Likely due to delirium in the setting of underlying dementia, hyponatremia, uremia Delirium resolved, patient now back to baseline mental status with underlying dementia SIRS Initially met SIRS criteria with elevated lactic acid. Was placed on empiric IV Zosyn. Infection was ultimately ruled out with negative imaging (CT chest/ABD/pelvis ) and urine and blood cultures. Zosyn was discontinued. Sinus Bradycardia Not on any AV carrie blocking agents Not a candidate for pacemaker given comorbidities Patient's family understands and agrees with no intervention /pacemaker placement Remains asymptomatic without any more bradycardia Hypernatremia Likely due to dehydration/Poor oral intake Nephrology consulted Presenting sodium 164, improved to 139 on the day of discharge Treated with IVF D5W Needs to be fed at facility and encourage fluid intake goal of at least 40 ounces per day Facility to check bmp weekly x 4 after d/c Resume potassium but not lasix at discharge and reeval need for K after 3-4 weeks Non-anion gap metabolic acidosis Started on oral sodium bicarbonate Discharged on 650 mg twice daily sodium bicarbonate for 2 weeks then stop MARITZA on CKD III Likely Multifactorial ATN/Prerenal/Rhabdo Cr:3.24>2.33>1.6>1.3>1.1>0.9 Acute rhabdomyolysis Presenting CK 6200 --> improved to 760 Elevated troponin Likely secondary to acute rhabdomyolysis EKG showed no signs of acute ischemia ECHO: No regional wall motion abnormality noted Right forearm cellulitis On the day of discharge, patient noted to have erythema over right forearm with a few small wounds in the right antecubital space Had IV infiltrate a few days ago Will discharge on a short course of p.o. cephalexin. Allergy noted however patient received IV cefepime while admitted as well as dose of p.o. cephalexin prior to discharge without any issue. Other chronic conditions: H/O Traumatic subdural hematoma Chronic anemia Prediabetes: HbA1C 5.9 from 2019 Dementia on buspirone, donepezil, and olanzapine Mood disorder BPH S/p Surgery on finasteride and tamsulosin Total Time Total Time Spent Total Time Spent (In Minutes): 60 Discharge Plan Discharge Items Patient Disposition: Transfer Long Term Fac Reason For Visit: SEPSIS Discharge Diagnosis: Metabolic encephalopathy Hyponatremia MARITZA on CKD stage III Acute rhabdomyolysis Activity: Resume your previous activity Non-emergency contact: Primary Care Provider Call non-emergency contact if: you have any medication questions, your symptoms worsen, your pain is not controlled and you have a fever Follow-up/Referrals: Alia Bernal CRNP [Primary Care Provider] - Diet: Regular Diet Texture: Pureed (blended smooth) Diet Comment: Needs to be fed. Encourage 40oz fluid intake per day. Addtl Attending Provider Instructions: Patient presented with confusion and lethargy. Initially met sepsis and SIRS criteria however infection was ultimately ruled out. Also found to have MARITZA and hypernatremia. Nephrology consulted. Nephro d/c recommendations -needs fed at his facility -facility to check bmp weekly x 4 after d/c -encourage fluid intake with goal of at least 40 oz daily -resume potassium but not lasix at discharge and reeval need for K after 3-4 weeks -for now d/c on 650 mg bid sodium bicarbonate for 2 weeks then stop -nephro f/u prn at d/c Had a IV infiltrate in the right arm causing a mild cellulitis. Will discharge on a short course of p.o. Keflex. Pending Studies at Discharge: No Stand-Alone Forms: My [facility] Skilled Items Patient informed of condition?: Yes DNR: Yes Discharge Level of Care: Skilled Communicable Disease: No Discharge Prognosis: Stable Lines: None Urinary Catheter: No Medications and DC Order Prescriptions: New sodium bicarbonate 650 mg Tablet 650 mg PO BID 14 Days Qty: 28 0RF cephalexin 500 mg Capsule 500 mg PO TID Qty: 20 0RF Continued potassium chloride 10 mEq tablet extended release 10 meq PO DAILY Qty: 90 1RF buspirone 5 mg tablet 5 mg PO BID acetaminophen [Tylenol] 325 mg Tablet 650 mg PO Q4H MDD 3 GRAMS APAP/24 HOURS PRN (Reason: GENERALIZED DISCOMFORT) donepezil 5 mg tablet 5 mg PO HS olanzapine 2.5 mg tablet See Rx Instructions .ROUTE .COMPLEX Rx Instructions: TAKES 1.25 MG QPM, THEN 2.5 MG AT HS. magnesium hydroxide [Milk of Magnesia] 400 mg/5 mL Suspension 30 ml PO Q6H PRN (Reason: Constipation) tamsulosin 0.4 mg capsule 0.4 mg PO QPM finasteride 5 mg tablet 5 mg PO HS Discontinued furosemide 40 mg tablet 40 mg PO DAILY amoxicillin-pot clavulanate 500-125 mg tablet 1 tab PO TID Rx Instructions: STARTED 01/02/23 FOR 10 DAYS Discharge Orders: Discharge Order (Routine); Ordered 01/18/23 Ordered By: Sayda Aaron/Other Patient Handouts: A1C Admission Data Admit Date/Time: 01/11/23 23:46 Attending Provider: Truman Johnson Admit Provider: Sarbjit Ramsey Primary Care Provider: Alia Bernal Other Providers: Sarbjit Ramsey ; Foster Berg ; Logan [facility] ; Sid Easley Other Interventions: Discharge Summary Assessment (RN) Last Done: 01/18/23 13:43 Supervising Physician Co-Signing Physician Notes Attending addendum; The patient was seen and examined in medical floor He remains stable and denies any significant symptoms On examination Remains hemodynamically stable with blood pressure of 146/74 Chest-clear to auscultate bilaterally Heart-S1-S2, regular Abdomen-benign Extremities-right upper forearm has erythematous swelling with skin break secondary to IV infiltration and likely a cellulitis [employer]IMNEY [employer]CH[employer]IC-alert and awake. Pleasantly confused His labs, medications reviewed Agree with assessment and plan as outlined above by Sayda BLAKELY Medically stable to be transferred to the facility Dr Eva Johnson
[2023-01-18] MEDS ORDERED: SODIUM BICARBONATE 650 MG TAB PO SCH (21:00)
== END 2023-01-18 17:15 | DRG 682 ==
LOC: ED 18:36 → 2N 23:46 → SUATTDRO 23:46 → 2N 01-12 00:06 → 2S 01-12 13:16 → 3N 01-14 20:00